=== PATIENT | female | born 1965 | race Caucasian/White ===

== ENCOUNTER 2019-07-08 12:12 | Emergency (ER) | payer SELFPAY ==
[2019-07-08 13:17] VITALS: BP 149/74; PULSE 129; RESP 25; TEMP 39.1; O2SAT 95; BMI 31.8
--- NOTE | 2019-07-08 16:16 | XR_ITS ---
WS: [id number] CHEST XRAY TECHNIQUE: Portable chest. CLINICAL INFORMATION: cough COMPARISON: FINDINGS: Heart: Normal cardiac silhouette. Lungs: Lungs are clear. No consolidation or pleural effusion. Bones: Normal visualized bony structures. XR/XR chest 1V portable [id number] IMPRESSION: Normal chest
--- NOTE | 2019-07-08 16:16 | ECG_ITS ---
Measurements Intervals [place] Rate: 120 P: 85 DC: 136 QRS: 62 QRSD: 91 T: 68 QT: 271 QTc: 384 SINUS TACHYCARDIA LEFT VENTRICULAR HYPERTROPHY AND ST-T CHANGE [VOLTAGE CRITERIA PLUS ST/T ABNORMALITY] No previous ECG available for comparison Electronically Signed On 07-08-2019 17:52:16 PLASTER TENDER by Ashley Robbins M.D. [email or web address]
[2019-07-08 16:18] VITALS: BP 145/84; PULSE 124; RESP 18; TEMP 39.6; O2SAT 98
--- NOTE | 2019-07-08 16:19 | ED_ITS ---
Entered by Janet Hernandez, acting as scribe for William Puga MD Jul 08, 2019 12:12 HPI - General Adult General: Chief complaint: General Medical Stated complaint: multiple complaints Time Seen by Provider: 07/08/19 16:18 Source: patient and RN notes reviewed Mode of arrival: ambulatory Limitations: no limitations History of Present Illness: HPI narrative: 54 yo female presents to ED with complaints of body aches, pains, fever, and bilateral flank pain. The patient states she has been in bed since Monday (4 days). She denies sick contact except for when she went to [employer] on Monday. She said she has worse pain in her back. She denies cough/congestion. complaint: fever, body aches, bilateral flank pain Onset (ago): day(s) (4) Location: back, left (flank) and right (flank) Radiation: non-radiation Severity: moderate Quality: aching Pain Consistency: constant Relieving factors: none Exacerbating factors: none Associated symptoms: Reports fevers/chills, malaise and weakness; Deny chest pain, dyspnea, headache(s), nausea, rash or vomiting Treatments prior to arrival: none Review of Systems Const: Reports: malaise Eyes: Denies: blurry vision or eye discomfort ENMT: Denies: throat pain or dental pain Card: Denies: chest pain Resp: Denies: shortness of breath GI: Denies: abdominal pain, nausea, vomiting or diarrhea Musc: Denies: neck pain Skin/Breast: Denies: rash Neuro: Denies: headache Psych: Denies: depression Michael/Lymph: Denies: easy bruising All/Imm: Denies: hives PFSH ED PFSH: Statuses (acute, chronic, etc) shown below reflect problem list status as previously entered and may not be historically accurate Social History Smoking and tobacco status: never smoked Physical Exam Const: COMMON NORMALS: no apparent distress, oriented x3 and healthy appearing HENMT: COMMON NORMALS: normocephalic and head/scalp atraumatic HEAD & SCALP: normocephalic and atraumatic Eye: COMMON NORMALS: PERRL and EOMs intact bilaterally PUPIL: Yes PERRL Neck/C-Spine: COMMON NORMALS: full ROM and supple Chest: COMMONS NORMALS: inspection of chest normal and palpation of chest normal Resp: COMMON NORMALS: normal respiratory effort, no retractions, no use of accessory muscles and clear to auscultation bilaterally AUSCULTATION: clear to auscultation bilaterally Cardio: COMMON NORMALS: regular rhythm and no murmurs RATE: tachycardic RHYTHM: regular rhythm GI: COMMON NORMALS: normal to inspection, nondistended, normoactive bowel sounds, soft to palpation, non-tender and no masses PALPATION: Yes soft Extremity: COMMON NORMALS: normal to inspection and full ROM Neuro: COMMON NORMALS: oriented x3, moves all extremities and no focal motor deficits Psych: COMMON NORMALS: mental status grossly normal, thought process normal and cooperative THOUGHT PROCESS: normal thought process Skin: COMMON NORMALS: no rashes or lesions noted and no wounds GENERAL SKIN EXAM: no rashes or lesions noted Course Vital Signs: Vital signs: Vital Signs Temperature 98.4 F 07/08/19 18:38 Pulse Rate 100 07/08/19 18:38 Respiratory Rate 16 07/08/19 18:38 Blood Pressure 118/74 07/08/19 18:38 Pulse Oximetry 94 07/08/19 18:38 MDM - General Adult MDM Narrative: Medical decision making narrative: Patient presents here with fever along with flank pain with likely pyelonephritis. Patient abdominal exam and repeat abdominal exam here are benign with no tenderness. Patient is well- appearing here and requesting discharge. We will place her on antibiotics and she is stable for discharge at this time. She has no signs of meningitis. She is to return to the ER if worsening. Lab Data: Labs: Lab Results 07/08/19 07/08/19 07/08/19 Range/Units 16:28 16:28 16:28 WBC 16.8 H (4.0-10.0) 10^3/ uL RBC 4.51 (4.1-5.3) 10^6/u L Hgb 13.6 (11.5-15.3) g/dL Hct 40.8 (37.0-47.0) % MCV 90.5 (81-99) fL MCH 30.2 (28.0-34.0) pg MCHC 33.3 (30.0-36.0) g/dL RDW 13.3 (12.1-15.1) % Plt Count 278 (130-400) 10^3/c mm MPV 12.3 H (7.4-10.4) fL Neut % (Auto) 81.7 % Lymph % (Auto) 8.0 % [place] % (Auto) 8.7 % Eos % (Auto) 0.0 % Baso % (Auto) 0.2 % Neut # (Auto) 13.7 H (1.8-7.7) 10^3/u L Lymph # (Auto) 1.3 (0.8-4.8) 10^3/u L [place] # (Auto) 1.5 H (0.2-0.9) 10^3/u L Eos # (Auto) 0.0 (0.0-0.8) 10^3/u L Baso # (Auto) 0.0 (0.0-0.1) 10^3/u L Nucleated RBC % (a uto) 0 % Nucleated RBCs # 0.0 /100WBC Sodium 126 L (136-145) mmol/L Potassium 4.0 (3.5-5.1) mmol/L Chloride 85 L (98-107) mmol/L Carbon Dioxide 28 (22-29) mmol/L Anion Gap 17.0 (5-19) BUN 31 H (6-20) mg/dL Creatinine 1.2 H (0.5-0.9) mg/dL GFR Calculation 46.8 L (90-130) mL/min Glucose 124 H (74-109) mg/dL Lactic Acid 1.4 (0.5-2.2) mmol/L Calcium 10.6 H (8.5-10.5) mg/dL Total Bilirubin 0.4 (0.15-1.2) mg/dL AST 31 (0-32) U/L ALT 20 (0-33) U/L Alkaline Phosphata se 121 H (35-105) IU/L Total Protein 8.2 (6.6-8.7) g/dL Albumin 3.2 L (3.5-5.2) g/dL Globulin 5.0 H (1.3-4.6) g/dL Urine Color (Yellow) Urine Appearance (CLEAR) Urine pH (5-7) Ur Specific Gravit y (1.005-1.030) Urine Protein (Negative) Urine Glucose (UA) (Normal) Urine Ketones (Negative) Urine Occult Blood (Negative) Urine Nitrate (Negative) Urine Bilirubin (NEGATIVE) Urine Urobilinogen (Negative) mg/dL Ur Leukocyte Umu ase (Negative) Urine RBC (0-2) /hpf Urine WBC (0-5) /hpf Ur Squamous Epith Cells (0-5) Urine Bacteria (NONE) Influenza Type A A g (Negative) POC Influenza B Ag (Negative) 07/08/19 07/08/19 Range/Units 16:57 16:57 WBC (4.0-10.0) 10^3/ uL RBC (4.1-5.3) 10^6/u L Hgb (11.5-15.3) g/dL Hct (37.0-47.0) % MCV (81-99) fL MCH (28.0-34.0) pg MCHC (30.0-36.0) g/dL RDW (12.1-15.1) % Plt Count (130-400) 10^3/c mm MPV (7.4-10.4) fL Neut % (Auto) % Lymph % (Auto) % [place] % (Auto) % Eos % (Auto) % Baso % (Auto) % Neut # (Auto) (1.8-7.7) 10^3/u L Lymph # (Auto) (0.8-4.8) 10^3/u L [place] # (Auto) (0.2-0.9) 10^3/u L Eos # (Auto) (0.0-0.8) 10^3/u L Baso # (Auto) (0.0-0.1) 10^3/u L Nucleated RBC % (a uto) % Nucleated RBCs # /100WBC Sodium (136-145) mmol/L Potassium (3.5-5.1) mmol/L Chloride (98-107) mmol/L Carbon Dioxide (22-29) mmol/L Anion Gap (5-19) BUN (6-20) mg/dL Creatinine (0.5-0.9) mg/dL GFR Calculation (90-130) mL/min Glucose (74-109) mg/dL Lactic Acid (0.5-2.2) mmol/L Calcium (8.5-10.5) mg/dL Total Bilirubin (0.15-1.2) mg/dL AST (0-32) U/L ALT (0-33) U/L Alkaline Phosphata se (35-105) IU/L Total Protein (6.6-8.7) g/dL Albumin (3.5-5.2) g/dL Globulin (1.3-4.6) g/dL Urine Color Yellow (Yellow) Urine Appearance Cloudy (CLEAR) Urine pH 5 (5-7) Ur Specific Gravit y 1.015 (1.005-1.030) Urine Protein 2+ H (Negative) Urine Glucose (UA) Norm (Normal) Urine Ketones Negative (Negative) Urine Occult Blood 3+ H (Negative) Urine Nitrate Negative (Negative) Urine Bilirubin Neg (NEGATIVE) Urine Urobilinogen Norm (Negative) mg/dL Ur Leukocyte Umu ase 2+ H (Negative) Urine RBC 5-10 H (0-2) /hpf Urine WBC 15-25 H (0-5) /hpf Ur Squamous Epith Cells 10-15 H (0-5) Urine Bacteria 2+ H (NONE) Influenza Type A A g Negative (Negative) POC Influenza B Ag Negative (Negative) Imaging Data^: CXR: My impression: no acute abnormality Discharge Plan Discharge Patient Disposition: Home, Self-Care Clinical Impression: Pyelonephritis Condition: Stable Prescriptions: New Zofran 4 mg tablet 4 mg PO QID PRN (Reason: nausea and vomiting) Qty: 14 RF: 0 Keflex 500 mg capsule 500 mg PO Q6H 7 Days Qty: 28 RF: 0 EC-Naprosyn 500 mg tablet,delayed release (DR/EC) 500 mg PO BID PRN (Reason: pain) Qty: 20 RF: 0 Discharge Orders: Discharge Order (Routine); Ordered 07/08/19 Ordered By: William Puga Referrals: Barry London MD [Primary Care Provider] - 1-3 days Discharge Diet: Advance as tolerated Discharge Activity: Resume usual activity Patient Instructions: Acute Pyelonephritis (ED) Discharge Date/Time: 07/08/19 18:47 Coding Level of Care Code ED Shift Lab Technician for g Fwd The documentation recorded by the David richter Valerie R, accurately refl ectmacy the service I personally performed and the decisions made by Edd molina Korby, MD Jul 08, 2019 12:12
--- NOTE | 2019-07-08 16:19 | PC.NURSE ---
Patient reports that she has been in bed sick since Monday. Patient states she had a fever, cold sweats, and body aches. Patient reports the cold sweats have went away but she has had some dark urine. Patient states that at this time she is having a headache, back pain, neck pain, dizziness, and fever.
[2019-07-08 16:42] LABS: Basophils % 0.2 %; Hematocrit 40.8 % (37.0-47.0); Hemoglobin 13.6 g/dL (11.5-15.3); Lymphocytes # 1.3 10^3/uL (0.8-4.8); Mean Corpuscular HGB Conc 33.3 g/dL (30.0-36.0); Mean Corpuscular Hemoglobin 30.2 pg (28.0-34.0); Mean Corpuscular Volume 90.5 fL (81-99); Mean Platelet Volume 12.3 fL (7.4-10.4); Monocytes # 1.5 10^3/uL (0.2-0.9); Monocytes % 8.7 %; Neutrophils # 13.7 10^3/uL (1.8-7.7); Neutrophils % 81.7 %; Nucleated Red Blood Cells % 0 %; Platelet Count 278 10^3/cmm (130-400); Red Blood Count 4.51 10^6/uL (4.1-5.3); Red Cell Distribution Width 13.3 % (12.1-15.1); White Blood Count 16.8 10^3/uL (4.0-10.0)
[2019-07-08] MEDS: sodium chloride 0.9% 2,449.41 ML 2449.4 ML IV (16:46)
[2019-07-08 16:59] LABS: Lactic Sepsis W/Reflex 1.4 mmol/L (0.5-2.2)
[2019-07-08 17:00] LABS: Alanine Aminotransferase 20 U/L (0-33); Albumin Level 3.2 g/dL (3.5-5.2); Alkaline Phosphatase 121 IU/L (35-105); Aspartate Amino Transferase 31 U/L (0-32); Blood Urea Nitrogen 31 mg/dL (6-20); Calcium 10.6 mg/dL (8.5-10.5); Carbon Dioxide 28 mmol/L (22-29); Chloride 85 mmol/L (98-107); Glomerular Filtration Rate 46.8 mL/min (90-130); Glucose 124 mg/dL (74-109); Sodium 126 mmol/L (136-145); Total Bilirubin 0.4 mg/dL (0.15-1.2); Total Protein 8.2 g/dL (6.6-8.7)
[2019-07-08] MEDS: acetaminophen 500 mg Tablet 1000 MG PO (17:22)
[2019-07-08 17:41] LABS: Influenza A by IFA Negative (Negative); Influenza B by IFA Negative (Negative)
[2019-07-08 17:47] LABS: Add Urine Microscopic? YES; Bilirubin Urine Neg (NEGATIVE); Blood Urine 3+ (Negative); Glucose Urine UA Norm (Normal); Ketones Urine Negative (Negative); Leukocyte Esterase Urine 2+ (Negative); Nitrate Urine Negative (Negative); Protein Urine 2+ (Negative); Specific Gravity, Urine 1.015 (1.005-1.030); Urine Appearance Cloudy (CLEAR); Urine Color Yellow (Yellow); Urobilinogen Urine Norm (Negative); pH Urine 5 (5-7)
[2019-07-08 17:48] LABS: WBC Urine 15-25 /hpf (0-5)
[2019-07-08 17:49] LABS: Add Urine Culture? No; Bacteria Urine 2+
[2019-07-08 17:55] VITALS: BP 105/75; PULSE 10; RESP 16; TEMP 37.9; O2SAT 95
[2019-07-08] MEDS: cefTRIAXone 1,000 MG in sodium chloride 0.9% (plus) 50 ML 100 MG IV (18:02)
[2019-07-08 18:38] VITALS: BP 118/74; PULSE 100; RESP 16; TEMP 36.9; O2SAT 94
== END 2019-07-08 18:47 | disposition home or self-care (01) ==
PROVIDERS: Physician Assistant; Emergency Provider Emergency Medicine; Family Provider Family Medicine; PCP Family Medicine
DX: N12 Tubulo-interstitial nephritis, not specified as acute or chronic (principal)
CPT/HCPCS: 36415; 71045; 80053; 81001; 83605; 85025; 87040; 87077; 87086; 87186; 87804; 93005; 99283; J0696; J7030

== ENCOUNTER 2019-11-05 14:39 | Emergency (ER) | payer SELFPAY ==
[2019-11-05 15:29] VITALS: BP 170/75; PULSE 81; RESP 18; TEMP 36.7; O2SAT 97; BMI 32.8
--- NOTE | 2019-11-05 15:35 | W.ED.ABDPA2 ---
HPI - Abdominal Pain General: Chief Complaint: Abdominal Pain Stated Complaint: rib/back pain Time Seen by Provider: 11/05/19 15:35 History of Present Illness: HPI narrative: Patient is a 54-year-old female comes to the ED with abdominal pain. Patient says it started about 2 weeks ago. The pain is located in the epigastric region and in the right upper quadrant of the abdomen. She also complains of having some mid back pain as well. She noticed today that eating seemed to worsen some of her symptoms. She also complains of recently having some indigestion and acid reflux. Denies any fever, chills, nausea/vomiting, bladder or bowel symptoms. Associated Symptoms: Denies chills, constipation, diarrhea, dysuria, fever(s), hematochezia, hematuria, nausea and vomiting Review of Systems Const: Denies: fever(s), chills or fatigue Eyes: Denies: change in vision or eye discomfort ENMT: Denies: throat pain, odynophagia, nasal discharge or nasal congestion Card: Denies: chest pain, palpitations, edema, swelling of feet/ankles, dyspnea on exertion or orthopnea Resp: Denies: dyspnea, productive cough or non-productive cough GI: Reports: abdominal pain; Denies: nausea, vomiting, diarrhea, constipation or hematochezia : Denies: flank pain, dysuria or hematuria Musc: Reports: back pain; Denies: neck pain or extremity swelling Skin/Breast: Denies: rash or new lesions Neuro: Denies: headache(s), numbness in extremities or weakness in extremities PFS ED PFSH: Social History Smoking and tobacco status: never smoked Physical Exam Narrative: EXAM NARRATIVE: Patient is a 54-year-old female that is pleasant and laughing/making jokes during history and physical exam. She does appear to have some abdominal pain upon palpation especially in the right upper quadrant. Const: COMMON NORMALS: no acute distress, patient oriented x3 and alert GENERAL APPEARANCE: cooperative HENMT: COMMON NORMALS: normocephalic HEAD & SCALP: normocephalic MOUTH: Normal oral and palatal mucosa present THROAT: posterior oropharynx normal and uvula midline Neck/C-Spine: COMMON NORMALS: supple GENERAL: Yes normal visual inspection Resp: COMMON NORMALS: normal respiratory effort, No retractions, No use of accessory muscles and clear to auscultation bilaterally AUSCULTATION: clear to auscultation bilaterally Cardio: COMMON NORMALS: regular rate, regular rhythm, S1 normal heart sound present, S2 normal heart sound present, No gallops present (Cardio), No clicks present (Cardio), No murmurs present (Cardio) and Peripheral pulses 2+ throughout RATE: regular rate RHYTHM: regular rhythm HEART SOUNDS: S1 normal heart sound present and S2 normal heart sound present PERIPHERAL PULSES: Peripheral pulses 2+ throughout GI: COMMON NORMALS: Normal to inspection, nondistended, normoactive bowel sounds present, Soft to palpation and no masses PALPATION: Yes Soft to palpation and Yes Tenderness to palpation present (GI) Details: RUQ (Moderate tenderness?positive Camacho sign) : COMMON NORMALS: Yes no CVA tenderness BLADDER/KIDNEY EXAM: Yes no CVA tenderness Back/Pelvis: COMMON NORMALS: no CVA tenderness Extremity: COMMON NORMALS: normal to inspection and no pedal edema Neuro: COMMON NORMALS: patient oriented x3 SENSORIUM/ORIENTATION: Yes alert GAIT: Yes Normal gait present Skin: COMMON NORMALS: no rashes or lesions noted GENERAL SKIN EXAM: no rashes or lesions noted and dry skin Course Vital Signs: Vital signs: Vital Signs Temperature 98.0 F 11/05/19 15:29 Pulse Rate 81 11/05/19 18:17 Respiratory Rate 14 11/05/19 18:17 Blood Pressure 165/88 11/05/19 18:17 Pulse Oximetry 97 11/05/19 18:17 MDM - Abdominal Pain MDM Narrative: Medical decision making narrative: Patient is a 54-year-old female comes to the ED with right upper quadrant abdominal pain. Ultrasound of the gallbladder showed hepatomegaly and gallstone. Patient was then discharged with a prescription for tramadol to help with pain. She was told to follow-up with her PCP within the next week to recheck labs and reevaluate. Patient understood and agreed with plan. Lab Data: Attestation: I reviewed the patient's lab results. Labs: Lab Results 11/05/19 11/05/19 Range/Units 15:53 15:53 WBC 8.0 (4.0-10.0) 10^3/ uL RBC 4.42 (4.1-5.3) 10^6/u L Hgb 13.5 (11.5-15.3) g/dL Hct 40.9 (37.0-47.0) % MCV 92.5 (81-99) fL MCH 30.5 (28.0-34.0) pg MCHC 33.0 (30.0-36.0) g/dL RDW 13.7 (12.1-15.1) % Plt Count 355 (130-400) 10^3/c mm MPV 11.5 H (7.4-10.4) fL Neut % (Auto) 58.9 % Lymph % (Auto) 33.1 % [place] % (Auto) 5.1 % Eos % (Auto) 2.1 % Baso % (Auto) 0.5 % Neut # (Auto) 4.7 (1.8-7.7) 10^3/u L Lymph # (Auto) 2.7 (0.8-4.8) 10^3/u L [place] # (Auto) 0.4 (0.2-0.9) 10^3/u L Eos # (Auto) 0.2 (0.0-0.8) 10^3/u L Baso # (Auto) 0.0 (0.0-0.1) 10^3/u L Nucleated RBC % (a uto) 0 % Nucleated RBCs # 0.0 /100WBC Sodium 138 (136-145) mmol/L Potassium 3.8 (3.5-5.1) mmol/L Chloride 100 (98-107) mmol/L Carbon Dioxide 27 (22-29) mmol/L Anion Gap 14.8 (5-19) BUN 12 (6-20) mg/dL Creatinine 0.7 (0.5-0.9) mg/dL GFR Calculation 87.2 L (90-130) mL/min Glucose 89 (65-115) mg/dL Calculated Osmolal ity 282 L (285-295) mOsm/k g Calcium 9.1 (8.5-10.5) mg/dL Total Bilirubin 0.2 (0.15-1.2) mg/dL AST 18 (0-32) U/L ALT 20 (0-33) U/L Alkaline Phosphata se 90 (35-105) IU/L Total Protein 7.3 (6.6-8.7) g/dL Albumin 3.9 (3.5-5.2) g/dL Globulin 3.4 (1.3-4.6) g/dL Lipase 26 (13-60) U/L Discharge Plan Discharge Patient Disposition: Home, Self-Care Clinical Impression: Hepatomegaly Gallstone Qualifiers: Cholecystitis presence: without cholecystitis Biliary obstruction: without biliary obstruction Qualified Code(s): K80.20 - Calculus of gallbladder without cholecystitis without obstruction Condition: Stable Prescriptions: New tramadol 50 mg tablet 50 mg PO Q6H PRN (Reason: pain) Qty: 14 RF: 0 No Action Tylenol 325 mg Tablet 325 mg PO QID PRN (Reason: Pain) RF: 0 ibuprofen 200 mg Tablet 200 mg PO Q6H PRN (Reason: Pain) RF: 0 Claritin 10 mg Tablet 10 mg PO DAILY RF: 0 Discharge Orders: Discharge Order (Routine); Ordered 11/05/19 Ordered By: Sandro Feliz Referrals: Barry London MD [Primary Care Provider] - Discharge Diet: Advance as tolerated Discharge Activity: Increase activity as tolerated Patient Instructions: Abdominal Pain (ED) Activity Restrictions/Additional Instructions: Follow-up with medical provider as directed. Take medications as prescribed. Return to the ER or your medical provider if condition worsens. Please read and understand discharge instructions. If any questions ask please. Establish with primary and had a follow-up concerning your large liver and your gallstone recheck cholesterol triglycerides Discharge Date/Time: 11/05/19 18:17 Coding Level of Care Code ED Well Logging Captain for Chg Fwd Exam Comprehensive
[2019-11-05 15:56] VITALS: BP 161/89; PULSE 75; RESP 14; O2SAT 95
[2019-11-05 15:58] LABS: Basophils % 0.5 %; Eosinophils # 0.2 10^3/uL (0.0-0.8); Eosinophils % 2.1 %; Hematocrit 40.9 % (37.0-47.0); Hemoglobin 13.5 g/dL (11.5-15.3); Lymphocytes # 2.7 10^3/uL (0.8-4.8); Lymphocytes % 33.1 %; Mean Corpuscular Hemoglobin 30.5 pg (28.0-34.0); Mean Corpuscular Volume 92.5 fL (81-99); Mean Platelet Volume 11.5 fL (7.4-10.4); Monocytes # 0.4 10^3/uL (0.2-0.9); Monocytes % 5.1 %; Neutrophils # 4.7 10^3/uL (1.8-7.7); Neutrophils % 58.9 %; Nucleated Red Blood Cells % 0 %; Platelet Count 355 10^3/cmm (130-400); Red Blood Count 4.42 10^6/uL (4.1-5.3); Red Cell Distribution Width 13.7 % (12.1-15.1)
--- NOTE | 2019-11-05 16:07 | USR_ITS ---
PROCEDURE INFORMATION: Exam: US Abdomen Limited, Right Upper Quadrant Exam date and time: 11/05/2019 4:27 PM Age: 54 years old Clinical indication: Abdominal pain; Localized; Right upper quadrant (ruq); Additional info: Abdominal pain in ruq TECHNIQUE: Imaging protocol: Real-time ultrasound of the abdomen with image documentation. Examination was focused on the right upper quadrant. COMPARISON: No relevant prior studies available. FINDINGS: Liver: Normal. No masses. Mild hepatomegaly the liver span is 17.6 cm Gallbladder: Large solitary gallstones. Stone measures 1.9 cm x 1.5 cm There is no gallbladder wall thickening. Common bile duct: Normal. No stones. No dilation. 2.2 mm Pancreas: Visualized pancreas is unremarkable. Right kidney: Normal. No mass. No hydronephrosis. 11.7 cm x 4.3 cm x 5.5 cm US/US gall bladder [id number] IMPRESSION: Hepatomegaly Solitary gallstone Otherwise negative examination
[2019-11-05 16:13] LABS: Alanine Aminotransferase 20 U/L (0-33); Albumin Level 3.9 g/dL (3.5-5.2); Alkaline Phosphatase 90 IU/L (35-105); Anion Gap 14.8 (5-19); Aspartate Amino Transferase 18 U/L (0-32); Blood Urea Nitrogen 12 mg/dL (6-20); Calcium 9.1 mg/dL (8.5-10.5); Carbon Dioxide 27 mmol/L (22-29); Chloride 100 mmol/L (98-107); Globulin 3.4 g/dL (1.3-4.6); Glomerular Filtration Rate 87.2 mL/min (90-130); Glucose 89 mg/dL (65-115); Lipase 26 U/L (13-60); Osmolality Calculated 282 mOsm/kg (285-295); Potassium 3.8 mmol/L (3.5-5.1); Sodium 138 mmol/L (136-145); Total Bilirubin 0.2 mg/dL (0.15-1.2); Total Protein 7.3 g/dL (6.6-8.7)
[2019-11-05] MEDS: morphine 4 mg/mL SDV 1 mL IVP (16:26)
[2019-11-05] MEDS: lidocaine 2% viscous 15 ML, aluminum-mag hydrox-simethicon 30 ML, sucralfate oral liq 1 GM PO (16:26)
[2019-11-05] MEDS: ondansetron 2 mg/ML SDV 2 mL 4 MG IVP (16:26)
[2019-11-05] MEDS: sodium chloride 0.9% 1,000 ML 999 ML IV (16:26)
[2019-11-05 17:18] VITALS: BP 161/89; PULSE 71; RESP 18; O2SAT 98
[2019-11-05 18:17] VITALS: BP 165/88; PULSE 81; RESP 14; O2SAT 97
== END 2019-11-05 18:17 | disposition home or self-care (01) ==
PROVIDERS: Emergency Medicine; Emergency Provider Nurse Practitioner Family; PCP Family Medicine
DX: K80.20 Calculus of gallbladder without cholecystitis without obstruction (principal); R16.0 Hepatomegaly, not elsewhere classified
CPT/HCPCS: 12345; 36415; 76705; 80053; 83690; 85025; 96360; 96361; 96374; 96375; 99282; 99283; J2270; J2405; J7030

== ENCOUNTER 2022-03-03 15:10 | Emergency (ER) | payer MEDICAID, SELFPAY ==
[2022-03-03 15:11] VITALS: BP 135/84; PULSE 104; RESP 16; TEMP 37.1; BMI 29.7
--- NOTE | 2022-03-03 15:41 | W.ED.ABDPA2 ---
HPI - Abdominal Pain General: Chief Complaint: Abdominal Pain Stated Complaint: abnormal labs Time Seen by Provider: 03/03/22 15:22 Source: patient Mode of arrival: ambulatory History of Present Illness: 56-year-old female presents emergency room complaining of abdominal discomfort. Seen 2 days ago in her primary care clinic had abdominal pain diarrhea had laboratory work done. Received a call from clinic today was advised to go to nearest emergency room because of abnormal labs. She is not sure what the labs were. She denies any chest pain she has some vague abdominal discomfort and some loose stools. Denies hematochezia melena hematemesis coffee-ground emesis. She states she thought she needed to have her gallbladder evaluated. MD elicited complaint: abdominal pain Onset (ago): day(s) (3-4) Pain Consistency: intermittent Location: Diffuse Severity: mild Quality: cramping Migration to: no migration Exacerbating factors: nothing Relieving factors: nothing Associated Symptoms: Reports GI cramping; Denies bloating, chills, coffee ground emesis, constipation, diarrhea, dyspepsia, dysuria, excessive flatus, fever(s), heartburn, hematochezia, hematuria, hematemesis, fecal incontinence, loose stools, melena, nausea, poor appetite, syncope and vomiting Review of Systems Const: Denies: fever(s), chills, body aches, change in appetite, fatigue or malaise ENMT: Denies: throat pain, ear or mastoid pain, nasal discharge or nasal congestion Card: Denies: chest pain, edema, syncope, dyspnea on exertion or orthopnea Resp: Denies: dyspnea, productive cough or non-productive cough GI: Reports: GI cramping; Denies: abdominal pain, nausea, vomiting, hematemesis, coffee ground emesis, heartburn, diarrhea, constipation, bloating, excessive flatus, fecal incontinence, hematochezia or melena : Denies: flank pain, difficulty voiding, dysuria, urinary frequency, urinary urgency or hematuria Skin/Breast: Denies: rash or pruritus PFSH ED PFSH: Medical History Anxiety Chronic cholecystitis Lumbar disc disease with radiculopathy Psychiatric care Social History Smoking and tobacco status: never smoked Second hand smoke exposure: Yes Alcohol intake: never Physical Exam Const: COMMON NORMALS: no acute distress GENERAL APPEARANCE: cooperative and comfortable ORIENTATION/CONSCIOUSNESS: Yes awake, Yes oriented to person, Yes oriented to place and Yes oriented to time HENMT: COMMON NORMALS: normocephalic, atraumatic, hearing grossly normal bilaterally, external ears normal, EAC's normal, TM's normal bilaterally, Normal nasal mucous membranes and turbinates present, moist oral mucous membranes and oropharynx normal HEAD & SCALP: normocephalic and atraumatic NOSE: Normal nasal mucous membranes and turbinates present EXTERNAL EAR: Yes external ears normal EXTERNAL AUDITORY CANAL: EAC's normal TYMPANIC MEMBRANE: TM's normal bilaterally Eye: COMMON NORMALS: Equal, round and reactive pupils present, EOMs intact bilaterally, conjunctivae normal and no scleral icterus CONJUNCTIVA: Yes conjunctivae normal PUPIL: Yes Equal, round and reactive pupils present Neck/C-Spine: COMMON NORMALS: full ROM, no lymphadenopathy, supple and no JVD Lymph: LYMPHATIC: no lymphadenopathy noted and no lymphedema noted Resp: COMMON NORMALS: normal respiratory effort, No retractions, No use of accessory muscles and clear to auscultation bilaterally AUSCULTATION: clear to auscultation bilaterally Cardio: COMMON NORMALS: no JVD, regular rate, regular rhythm and No murmurs present (Cardio) RATE: regular rate RHYTHM: regular rhythm GI: COMMON NORMALS: Soft to palpation and No hepatosplenomegaly present AUSCULTATION: Yes normoactive bowel sounds PALPATION: Yes Soft to palpation, No Tenderness to palpation present (GI), No Guarding due to palpation present (GI) and Yes No hepatosplenomegaly present Extremity: COMMON NORMALS: normal to inspection, capillary refill normal, no clubbing, cyanosis or edema, no calf tenderness and no pedal edema Neuro: SENSORIUM/ORIENTATION: Yes oriented to person, Yes oriented to place and Yes oriented to time Skin: COMMON NORMALS: no rashes or lesions noted GENERAL SKIN EXAM: no rashes or lesions noted Course Vital Signs: Vital signs: Vital Signs Temperature 98.7 F 03/03/22 15:11 Pulse Rate 92 03/03/22 16:25 Respiratory Rate 18 03/03/22 16:25 Blood Pressure 140/102 03/03/22 16:25 Pulse Oximetry 100 09/22/22 16:25 Oxygen Delivery Me thod 03/03/22 15:11 MDM - Abdominal Pain Medical Decision Making Creatinine is mildly elevated BUN was elevated [facility] as well similar findings today. Certainly not emergent at this point. Recommend she avoid any NSAIDs increase fluid intake and follow-up with her primary care doctor within the next week to recheck kidney function. Medical Records I reviewed the patient's medical records. Lab Data I reviewed the patient's lab results. : 03/03/22 15:38 03/03/22 15:38 Labs/Radiology: Laboratory Results WBC 12.0 10^3/uL (4.0-10.0) H 03/03/22 15:38 RBC 4.51 10^6/uL (4.1-5.3) 03/03/22 15:38 Hgb 13.7 g/dL (11.5-15.3) 03/03/22 15:38 Hct 42.2 % (37.0-47.0) 03/03/22 15:38 MCV 93.6 fl (81-99) 03/03/22 15:38 MCH 30.4 pg (28.0-34.0) 03/03/22 15:38 MCHC 32.5 g/dL (30.0-36.0) 03/03/22 15:38 RDW 13.7 % (12.1-15.1) 03/03/22 15:38 Plt Count 345 10^3/cmm (130-400) 03/03/22 15:38 MPV 11.7 fL (7.4-10.4) H 03/03/22 15:38 Neut % (Auto) 71.0 % 03/03/22 15:38 Lymph % (Auto) 22.6 % 03/03/22 15:38 [place] % (Auto) 4.6 % 03/03/22 15:38 Eos % (Auto) 1.3 % 03/03/22 15:38 Baso % (Auto) 0.3 % 03/03/22 15:38 Neut # (Auto) 8.53 10^3/uL (1.8-7.7) H 03/03/22 15:38 Lymph # (Auto) 2.7 10^3/uL (0.8-4.8) 03/03/22 15:38 [place]e # (Auto) 0.6 10^3/uL (0.2-0.9) 03/03/22 15:38 Eos # (Auto) 0.2 10^3/uL (0.0-0.8) 03/03/22 15:38 Baso # (Auto) 0.0 10^3/uL (0.0-0.1) 03/03/22 15:38 Nucleated RBC % (auto) 0 % 03/03/22 15:38 Nucleated RBCs # 0.0 /100WBC 03/03/22 15:38 Sodium 134 mmol/L (136-145) L 03/03/22 15:38 Potassium 3.8 mmol/L (3.5-5.1) 03/03/22 15:38 Chloride 94 mmol/L (98-107) L 03/03/22 15:38 Carbon Dioxide 31 mmol/L (22-29) H 03/03/22 15:38 Anion Gap 12.8 (5-19) 03/03/22 15:38 BUN 29 mg/dL (6-20) H 03/03/22 15:38 Creatinine 1.1 mg/dL (0.5-0.9) H 03/03/22 15:38 GFR Calculation 51.4 mL/min (90-130) L 03/03/22 15:38 Glucose 94 mg/dL (65-115) 03/03/22 15:38 Calculated Osmolality 284 mOsm/kg (285-295) L 03/03/22 15:38 Calcium 10.1 mg/dL (8.5-10.5) 03/03/22 15:38 Total Bilirubin 0.3 mg/dL (0.15-1.2) 03/03/22 15:38 AST 20 U/L (0-32) 03/03/22 15:38 ALT 17 U/L (0-33) 03/03/22 15:38 Alkaline Phosphatase 90 U/L (35-105) 03/03/22 15:38 Total Protein 7.9 g/dL (6.6-8.7) 03/03/22 15:38 Albumin 3.6 g/dL (3.5-5.2) 03/03/22 15:38 Globulin 4.3 g/dL (1.3-4.6) 03/03/22 15:38 Lipase 26 U/L (13-60) 03/03/22 15:38 Urine Color Yellow (Yellow) 03/03/22 15:40 Urine Appearance Clear (CLEAR) 03/03/22 15:40 Urine pH 5 (5-7) 03/03/22 15:40 Ur Specific Wellman 1.025 (1.005-1.030) 03/03/22 15:40 Urine Protein Trace (Negative) 03/03/22 15:40 Urine Glucose (UA) Norm (Normal) 03/03/22 15:40 Urine Ketones Negative (Negative) 03/03/22 15:40 Urine Blood 2+ (Negative) H 03/03/22 15:40 Urine Nitrate Negative (Negative) 03/03/22 15:40 Urine Bilirubin Neg (Negative) 03/03/22 15:40 Urine Urobilinogen Norm mg/dL (Negative) 03/03/22 15:40 Ur Leukocyte Esterase 1+ (Negative) H 03/03/22 15:40 Urine RBC 5-10 /hpf (0-2) H 03/03/22 15:40 Urine WBC 0-4 /hpf (0-5) H 03/03/22 15:40 Ur Squamous Epith Cells 0-4 /hpf (0-5) H 03/03/22 15:40 Amorphous Sediment Not Reportable 03/03/22 15:40 Urine Bacteria 2+ /hpf (NONE) H 03/03/22 15:40 Discharge Plan Discharge Patient Disposition: Home Clinical Impression: Creatinine elevation Condition: Stable Prescriptions: Discontinued ibuprofen 200 mg Tablet 200 mg PO Q6H PRN (Reason: Pain) Rx Instructions: PT STATES THAT SHE TOOK 2 OF HER HUSBANDS FLEXERIL THIS MORNING. No Action Tylenol 325 mg Tablet 325 mg PO QID PRN (Reason: Pain) Rx Instructions: PT STATES THAT SHE TOOK 2 OF HER HUSBANDS FLEXERIL THIS MORNING. Claritin 10 mg Tablet 10 mg PO DAILY Rx Instructions: PT STATES THAT SHE TOOK 2 OF HER HUSBANDS FLEXERIL THIS MORNING. Discharge Orders: Discharge ED (Routine); Ordered 03/03/22 Ordered By: Herman Malcolm Referrals: Park Frances, [facility] [Primary Care Provider] - Patient Instructions: Opioid Safety, Pain Management Activity Restrictions/Additional Instructions: Avoid use of NSAIDs such as Motrin Aleve ibuprofen. Avoid using the meloxicam you stated you were recently prescribed and follow-up with your primary care doctor within the next week to recheck your kidney function. Coding Level of Care Code ED Customs Manager for [facility]atha Fwd Exam Comprehensive
[2022-03-03] MEDS: sodium chloride 0.9% 1,000 ML 999 ML IV (15:46)
[2022-03-03 15:49] LABS: Basophils % 0.3 %; Eosinophils # 0.2 10^3/uL (0.0-0.8); Eosinophils % 1.3 %; Hematocrit 42.2 % (37.0-47.0); Hemoglobin 13.7 g/dL (11.5-15.3); Lymphocytes # 2.7 10^3/uL (0.8-4.8); Lymphocytes % 22.6 %; Mean Corpuscular HGB Conc 32.5 g/dL (30.0-36.0); Mean Corpuscular Hemoglobin 30.4 pg (28.0-34.0); Mean Corpuscular Volume 93.6 fl (81-99); Mean Platelet Volume 11.7 fL (7.4-10.4); Monocytes # 0.6 10^3/uL (0.2-0.9); Monocytes % 4.6 %; Neutrophils # 8.53 10^3/uL (1.8-7.7); Nucleated Red Blood Cells % 0 %; Platelet Count 345 10^3/cmm (130-400); Red Blood Count 4.51 10^6/uL (4.1-5.3); Red Cell Distribution Width 13.7 % (12.1-15.1)
[2022-03-03 16:05] LABS: Alanine Aminotransferase 17 U/L (0-33); Albumin Level 3.6 g/dL (3.5-5.2); Alkaline Phosphatase 90 U/L (35-105); Anion Gap 12.8 (5-19); Aspartate Amino Transferase 20 U/L (0-32); Blood Urea Nitrogen 29 mg/dL (6-20); Calcium 10.1 mg/dL (8.5-10.5); Carbon Dioxide 31 mmol/L (22-29); Chloride 94 mmol/L (98-107); Globulin 4.3 g/dL (1.3-4.6); Glomerular Filtration Rate 51.4 mL/min (90-130); Glucose 94 mg/dL (65-115); Lipase 26 U/L (13-60); Osmolality Calculated 284 mOsm/kg (285-295); Potassium 3.8 mmol/L (3.5-5.1); Sodium 134 mmol/L (136-145); Total Bilirubin 0.3 mg/dL (0.15-1.2); Total Protein 7.9 g/dL (6.6-8.7)
[2022-03-03 16:15] LABS: Specific Gravity, Urine 1.025 (1.005-1.030); Urine Appearance Clear (CLEAR); Urine Color Yellow (Yellow); pH Urine 5 (5-7)
[2022-03-03 16:16] LABS: Add Urine Culture? Yes; Add Urine Microscopic? YES; Bacteria Urine 2+ /hpf; Bilirubin Urine Neg (Negative); Blood Urine 2+ (Negative); Glucose Urine UA Norm (Normal); Ketones Urine Negative (Negative); Leukocyte Esterase Urine 1+ (Negative); Nitrate Urine Negative (Negative); Protein Urine Trace (Negative); Squamous Epithelial Cell Urine 0-4 /hpf (0-5); Urobilinogen Urine Norm (Negative); WBC Urine 0-4 /hpf (0-5)
[2022-03-03 16:25] VITALS: BP 140/102; PULSE 92; RESP 18; O2SAT 100
--- NOTE | 2022-03-03 16:49 | PC.NURSE ---
ATTEMPTED TO CALL PT WITH UA RESULTS AND TO CHECK PHARMACY PREFERENCE FOR SCRIPT. NO ANSWER.
== END 2022-03-03 16:26 | disposition home or self-care (01) ==
PROVIDERS: Emergency Provider Family Medicine; PCP Nurse Practitioner Family
DX: R79.82 Elevated C-reactive protein (CRP) (principal); Z77.22 Contact with and (suspected) exposure to environmental tobacco smoke (acute) (chronic)
CPT/HCPCS: 36415; 80053; 81001; 83690; 85025; 87077; 87086; 87186; 99283; J7030

== ENCOUNTER 2022-04-14 10:24 | Outpatient (CLI) | payer MEDICAID, SELFPAY ==
--- NOTE | 2022-04-14 10:35 | MM_ITS ---
WS: [id number] BILATERAL SCREENING DIGITAL TOMOSYNTHESIS MAMMOGRAM WITH CAD HISTORY: SCREENING COMPARISON: None available. Bilateral CC and MLO views with tomosynthesis and synthetic mammography submitted. Computer aided det ection analyzed. Breast composition: There are scattered areas of fibroglandular density. No suspicious masses, microc alcifications or architectural distortion. MM/[place] [id number] IMPRESSION: BI-RADS: 1-Negative FOLLOW UP: 1 Year Follow-up
== END 2022-04-14 10:25 | disposition home or self-care (01) ==
LOC: RAD 10:25
PROVIDERS: PCP Nurse Practitioner Family; Visit Provider Nurse Practitioner Family
DX: Z12.31 Encounter for screening mammogram for malignant neoplasm of breast (principal)
CPT/HCPCS: 77063; 77067

== ENCOUNTER 2022-09-10 12:24 | Inpatient (IN) | payer MEDICAID, SELFPAY ==
[2022-09-10] VITALS (8 sets, daily range): BP systolic 122–172; BP diastolic 83–106; PULSE 89–112; RESP 14–28; TEMP 36.6–36.8; O2SAT 90–97; BMI 20.9; BMI 35.0
--- NOTE | 2022-09-10 12:39 | CTR_ITS ---
PROCEDURE INFORMATION: Exam: CT Abdomen And Pelvis With Contrast Exam date and time: 09/10/2022 12:50 PM Age: 57 years old Clinical indication: Abdominal pain; Localized; Lower; Patient HX: Tubal; Additional info: L abdominal pain, n/v TECHNIQUE: Imaging protocol: Computed tomography of the abdomen and pelvis with contrast. Radiation optimization: All CT scans at this facility use at least one of these dose optimization techniques: automated exposure control; mA and/or kV adjustment per patient size (includes targeted exams where dose is matched to clinical indication); or iterative reconstruction. Contrast material: OMNI 350; Contrast volume: 100 ml; Contrast route: INTRAVENOUS (IV); REPORTING DATA: Count of CT and Cardiac NM exams in prior 12 months: This patient has received 0 known CTs and 0 known cardiac nuclear medicine studies in the 12 months prior to the current study. COMPARISON: US gall bladder [id number] 04/04/2022 10:24 AM RADIATION DOSE METRICS: Total DLP (mGy-cm): 882.32 FINDINGS: Liver: Hepatomegaly. Gallbladder and bile ducts: Normal. No calcified stones. No ductal dilation. Pancreas: Normal. No ductal dilation. Spleen: Normal. No splenomegaly. Adrenal glands: Normal. No mass. Kidneys and ureters: There are multiple cysts in the bilateral kidneys with benign features the larger of which measures 2.1 cm in the right kidney. Follow-up is not necessary for these lesions. Stomach and bowel: There is fluid in the distal esophagus consistent with reflux. Appendix: No evidence of appendicitis. Intraperitoneal space: Unremarkable. No free air. No significant fluid collection. Vasculature: Unremarkable. No abdominal aortic aneurysm. Lymph nodes: Unremarkable. No enlarged lymph nodes. Urinary bladder: Unremarkable as visualized. Reproductive: There is an intermediate density lesion in the fundus of the uterus measuring 4.3 cm in the transverse dimension. Bones/joints: There is a transitional lumbosacral vertebra designated S1 for the purposes of this study. There is a rudimentary S1-S2 intervertebral disc. Grade 2 spondylolisthesis of L5 on S1 associated with bilateral chronic L5 pars interarticularis defects. There is uncovering of the disc and posterior osteophytes at the L5-S1 level contributing to severe bilateral neural foraminal narrowing. Degenerative changes are present in the visualized spine. Soft tissues: Unremarkable. CT/CT abdomen pelvis w con* [id number] IMPRESSION: 1. Chronic defects are present through the bilateral L5 pars interarticularis with associated grade 2 spondylolisthesis of L5 on S1. There is resultant severe narrowing of the bilateral L5-S1 neural foramina. 2. There is fluid in the distal esophagus consistent with reflux. 3. Hepatomegaly. 4. Intermediate density lesion in the uterine fundus likely represents a fibroid. Consider pelvic ultrasound for further evaluation if clinically warranted.
--- NOTE | 2022-09-10 12:40 | ED_ITS ---
Documented by User: MINDY Robles 09/10/22 15:02 HPI - Abdominal Pain General: Chief Complaint: Abdominal Pain Stated Complaint: ABD PAIN Time Seen by Provider: 09/10/22 12:32 Source: patient Mode of arrival: ambulatory Limitations: no limitations History of Present Illness: Patient is a 57-year-old female presents to ED today with a complaint of abdominal pain, nausea, vomiting. Patient states she began developing nausea yesterday evening around 9 PM after working outside. She states she has had approximately 9-10 episodes of nonbloody emesis. She states she is not having any diarrhea. She does report the urge to defecate but cannot or only in small amounts. She is reporting fairly significant pain throughout the left side of her abdomen that began around 2 to 3 AM this morning and has persisted and gradually worsened. She is not running fevers. Denies poor food exposures. No sick contacts. MD elicited complaint: abdominal pain and other (N/V) Onset (ago): hour(s) Pain Consistency: constant Location: LUQ and LLQ Severity: severe Radiation: none Migration to: no migration Exacerbating factors: nothing Relieving factors: nothing Associated Symptoms: Reports nausea, vomiting and other (reports urge to defecate but cannot/only in small amounts); Denies chills, diarrhea, dysuria, fever(s), hematochezia, hematuria and melena Related Data: Patient : No Review of Systems Const: Denies: fever(s), chills, body aches, fatigue or malaise Resp: Denies: dyspnea GI: Reports: abdominal pain, nausea, vomiting and other (reports urge to defecate but cannot/only in small amounts); Denies: diarrhea, hematochezia or melena : Denies: flank pain, dysuria or hematuria Musc: Denies: neck pain, back pain, extremity pain or joint pain Neuro: Denies: headache(s) PFSH ED PFSH: Medical History (Updated 09/12/22 @ 17:06 by Kael Mckoy MD) Amphetamine abuse Anxiety Arthritis Chronic cholecystitis History of cataract Hypertension Hypothalamic hypothyroidism Lactic acid acidosis Lumbar disc disease with radiculopathy Surgical History (Updated 09/10/22 @ 17:33 by Kael Mckoy MD) History of tubal ligation Social History Smoking and tobacco status: never smoked Second hand smoke exposure: Yes Alcohol intake: never Physical Exam Const: COMMON NORMALS: no acute distress, patient oriented x3, no limitations, alert and well nourished GENERAL APPEARANCE: cooperative ORIENTATION/CONSCIOUSNESS: Yes awake, Yes oriented to person, Yes oriented to place and Yes oriented to time Resp: COMMON NORMALS: normal respiratory effort and clear to auscultation bilaterally AUSCULTATION: clear to auscultation bilaterally Cardio: COMMON NORMALS: regular rate and regular rhythm RATE: regular rate RHYTHM: regular rhythm GI: COMMON NORMALS: Normal to inspection, nondistended, normoactive bowel sounds present, Soft to palpation, No hepatosplenomegaly present and no masses INSPECTION: Yes normal to inspection AUSCULTATION: Yes normoactive bowel sounds PALPATION: Yes Soft to palpation, Yes Tenderness to palpation present (GI) (reports 10/10 pain with palpation of L abdomen), No Guarding due to palpation present (GI), No Rigid due to palpation and Yes No hepatosplenomegaly present : COMMON NORMALS: Yes no CVA tenderness BLADDER/KIDNEY EXAM: Yes no CVA tenderness Back/Pelvis: COMMON NORMALS: no CVA tenderness Extremity: COMMON NORMALS: normal to inspection GENERAL: Yes normal exam except as noted Neuro: TRACI COMA SCALE: document GCS findings Bruno coma scale eye opening: Spontaneous Traci coma scale verbal response: Orientated Traci coma scale motor response: Obey commands Bruno coma scale total score: 15 COMMON NORMALS: patient oriented x3 SENSORIUM/ORIENTATION: Yes alert, Yes oriented to person, Yes oriented to place and Yes oriented to time Course Consultations: Consultation #1: Dr. Rivera-accepts admission Vital Signs: Vital signs: Vital Signs Temperature 97.6 F 09/14/22 12:40 Pulse Rate 90 09/14/22 12:40 Respiratory Rate 18 09/14/22 12:40 Blood Pressure 174/97 09/14/22 12:40 Pulse Oximetry 97 09/14/22 12:40 Oxygen Delivery Me thod Room Air 09/14/22 12:00 MDM - Abdominal Pain Medical Decision Making Patient is a 57-year-old female here for complaints of nausea and vomiting that began around 9 PM yesterday evening. She states she has had approximately 9-10 episodes of nonbloody emesis. She complains of some pain to the left side of her abdomen. She has the urge to defecate and can go in small amounts but reports pain. Patient's blood work showing many irregularities including significant leukocytosis with a white count of 26,000 with a left shift. Lactate of 4.7. Multiple electrolyte derangements. Acute kidney injury with a BUN/Cr 43/3.1. Elevations to AST/ALT with a normal T. bili. Patient obviously will require hospitalization secondary to lab results. We will add on blood cultures and start prophylactic antibiotics/sepsis fluid bolus. Working on trying to get stat urine. Case discussed with Dr. Rincon who agrees with need for hospitalization. Lab Data 09/13/22 05:18 09/14/22 04:26 Labs/Radiology: Radiology Impressions Abdomen X-Ray 09/12/22 10:42 IMPRESSION: Somewhat dramatic change in the bowel gas pattern compared to the CT scan of 09/10/2022. Since there appears to be distention of colon and small bowel and no prior evidence of small bowel obstruction on the previous CT scan, likely this is a profound ileus. The small bowel is significantly distended. Lumbar Spine CT 09/12/22 10:45 IMPRESSION: 1. Grade 2 spondylolisthesis of L5 resulting in severe central, bilateral subarticular recess and foraminal stenosis at L5-S1. There is significant encroachment and deformity on the L5 and S1 nerve roots bilaterally. 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 Very similar to the prior study from 2007. 2. Mild narrowing of the central canal and foramina at L4-5. Thoracic Spine CT 09/12/22 10:45 IMPRESSION: 1. Age-indeterminate nondisplaced fracture involving the superior LEFT articular facet of T11. 2. No significant central stenosis. 3. Increased amount of air throughout the GI tract suggesting ileus. 4. Bilateral lower lobe areas of atelectasis at the lung bases, LEFT greater than RIGHT. Abdomen/Pelvis CT 09/12/22 13:59 IMPRESSION: 1. Interval development of segmental colitis involving the descending and sigmoid colon. Consider C diff colitis or ischemic colitis as possible etiologies. 2. Mild-moderate gaseous distention involving majority of the GI tract likely secondary to generalized ileus. 3. Increased intraluminal fluid within the large bowel often seen secondary to various causes of diarrhea. 4. Mild-moderate amount of pelvic ascites presumed secondary to the developing colitis. 5. Interval development of bibasilar subsegmental atelectasis. 6. Additional chronic findings as above. Laboratory Results WBC 21.9 10^3/uL (4.0-10.0) H 09/10/22 14:30 RBC 4.38 10^6/uL (4.1-5.3) 09/10/22 14:30 Hgb 13.5 g/dL (11.5-15.3) 09/10/22 14:30 Hct 41.4 % (37.0-47.0) 09/10/22 14:30 MCV 94.5 fl (81-99) 09/10/22 14:30 MCH 30.8 pg (28.0-34.0) 09/10/22 14:30 MCHC 32.6 g/dL (30.0-36.0) 09/10/22 14:30 RDW 13.5 % (12.1-15.1) 09/10/22 14:30 Plt Count 370 10^3/cmm (130-400) 09/10/22 14:30 MPV 11.6 fL (7.4-10.4) H 09/10/22 14:30 Neut % (Auto) 88.9 % 09/10/22 14:30 Lymph % (Auto) 4.7 % 09/10/22 14:30 Forest % (Auto) 5.7 % 09/10/22 14:30 Eos % (Auto) 0.0 % 09/10/22 14:30 Baso % (Auto) 0.2 % 09/10/22 14:30 Neut # (Auto) 19.48 10^3/uL (1.8-7.7) H 09/10/22 14:30 Lymph # (Auto) 1.0 10^3/uL (0.8-4.8) 09/10/22 14:30 [place] # (Auto) 1.2 10^3/uL (0.2-0.9) H 09/10/22 14:30 Eos # (Auto) 0.0 10^3/uL (0.0-0.8) 09/10/22 14:30 Baso # (Auto) 0.0 10^3/uL (0.0-0.1) 09/10/22 14:30 Nucleated RBC % (auto) 0 % 09/10/22 14:30 Nucleated RBCs # 0.0 /100WBC 09/10/22 14:30 Sodium 133 mmol/L (136-145) L 09/10/22 14:30 Potassium 3.9 mmol/L (3.5-5.1) 09/10/22 14:30 Chloride 95 mmol/L (98-107) L 09/10/22 14:30 Carbon Dioxide 20 mmol/L (22-29) L 09/10/22 14:30 Anion Gap 21.9 (5-19) H 09/10/22 14:30 BUN 43 mg/dL (6-20) H 09/10/22 14:30 Creatinine 2.9 mg/dL (0.5-0.9) H 09/10/22 14:30 GFR Calculation 16.7 mL/min (90-130) L 09/10/22 14:30 Glucose 104 mg/dL (65-115) 09/10/22 14:30 Calculated Osmolality 287 mOsm/kg (285-295) 09/10/22 14:30 Lactic Acid 4.7 mmol/L (0.5-2.2) H* 09/10/22 13:05 Calcium 9.3 mg/dL (8.5-10.5) 09/10/22 14:30 Total Bilirubin 0.3 mg/dL (0.15-1.2) 09/10/22 14:30 AST 203 U/L (0-32) H 09/10/22 14:30 ALT 63 U/L (0-33) H 09/10/22 14:30 Alkaline Phosphatase 77 U/L (35-105) 09/10/22 14:30 Total Protein 6.9 g/dL (6.6-8.7) D 09/10/22 14:30 Albumin 3.5 g/dL (3.5-5.2) 09/10/22 14:30 Globulin 3.4 g/dL (1.3-4.6) 09/10/22 14:30 Lipase 22 U/L (13-60) 09/10/22 12:30 Vitamin B12 510 pg/mL (232-1245) 09/10/22 14:30 Folate > 20.0 ng/mL (4.8-37.3) 09/10/22 14:30 Procalcitonin 4.65 ng/mL (0-0.5) H 09/10/22 14:30 TSH 4.69 uIU/mL (0.27-4.20) H 09/10/22 14:30 Free T4 0.75 ng/dL (0.82-1.77) L 09/10/22 14:30 Free T3 2.2 PG/ML (2.0-4.4) 09/10/22 14:30 Urine Color Dark yellow (Yellow) 09/10/22 14:00 Urine Appearance Sl hazy (CLEAR) A 09/10/22 14:00 Urine pH 6 (5-7) 09/10/22 14:00 Ur Specific [place] 1.010 (1.005-1.030) 09/10/22 14:00 Urine Protein 2+ (Negative) H 09/10/22 14:00 Urine Glucose (UA) Norm (Normal) 09/10/22 14:00 Urine Ketones Negative (Negative) 09/10/22 14:00 Urine Blood 3+ (Negative) H 09/10/22 14:00 Urine Nitrate Negative (Negative) 09/10/22 14:00 Urine Bilirubin Neg (Negative) 09/10/22 14:00 Urine Urobilinogen Norm mg/dL (Negative) 09/10/22 14:00 Ur Leukocyte Esterase Negative (Negative) 09/10/22 14:00 Urine RBC 10-15 /hpf (0-2) H 09/10/22 14:00 Urine WBC 5-10 /hpf (0-5) H 09/10/22 14:00 Ur Squamous Epith Cells 5-10 /hpf (0-5) H 09/10/22 14:00 Amorphous Sediment Not Reportable 09/10/22 14:00 Urine Bacteria 1+ /hpf (NONE) H 09/10/22 14:00 Urine Opiates Screen Cancelled 09/10/22 14:00 Ur Barbiturates Screen Cancelled 09/10/22 14:00 Ur Phencyclidine Scrn Cancelled 09/10/22 14:00 Ur Amphetamines Screen Cancelled 09/10/22 14:00 U Benzodiazepines Scrn Cancelled 09/10/22 14:00 Urine Cocaine Screen Cancelled 09/10/22 14:00 U Marijuana (THC) Screen Cancelled 09/10/22 14:00 Ethyl Alcohol < 10 mg/dL (0-10) 09/10/22 14:30 Hepatitis A IgM Ab Non-reactive (Nonreactive) 09/10/22 14:30 Hep Bs Antigen Non-reactive (Nonreactive) 09/10/22 14:30 Hep Bs Antibody 49.0 (11.5-1000) 09/10/22 14:30 Hep B Core Total Ab Non-reactive (Nonreactive) 09/10/22 14:30 Hepatitis C Antibody Non-reactive (Nonreactive) 09/10/22 14:30 Discharge Plan Discharge Patient Disposition: Admitted As Inpatient Admit Provider: Kael Mckoy Clinical Impression: Gastroenteritis, Acute kidney injury, Sepsis, Hyponatremia, Elevated LFTs Condition: Stable Discharge Diet: Cardiac Discharge Activity: Resume usual activity and Increase activity as tolerated Coding Level of Care Code ED Acoustic Intelligence Specialist for Chg Fwd Documented by User: Akash Rincon MD 09/25/22 03:27 HPI - Abdominal Pain General: Chief Complaint: Abdominal Pain Stated Complaint: ABD PAIN Time Seen by Provider: 09/10/22 12:32 PFS ED PFSH: Medical History (Updated 09/12/22 @ 17:06 by Kael Mckoy MD) Amphetamine abuse Anxiety Arthritis Chronic cholecystitis History of cataract Hypertension Hypothalamic hypothyroidism Lactic acid acidosis Lumbar disc disease with radiculopathy Surgical History (Updated 09/10/22 @ 17:33 by Kael Mckoy MD) History of tubal ligation Social History Smoking and tobacco status: never smoked Second hand smoke exposure: Yes Alcohol intake: never Physical Exam Neuro: TRACI COMA SCALE: document GCS findings Bruno coma scale total score: 15 Course Vital Signs: Vital signs: Vital Signs Temperature 97.6 F 09/14/22 12:40 Pulse Rate 90 09/14/22 12:40 Respiratory Rate 18 09/14/22 12:40 Blood Pressure 174/97 09/14/22 12:40 Pulse Oximetry 97 09/14/22 12:40 Oxygen Delivery Me thod Room Air 09/14/22 12:00 MDM - Abdominal Pain Medical Decision Making Patient is a 57-year-old female here for complaints of nausea and vomiting that began around 9 PM yesterday evening. She states she has had approximately 9-10 episodes of nonbloody emesis. She complains of some pain to the left side of her abdomen. She has the urge to defecate and can go in small amounts but reports pain. Patient's blood work showing many irregularities including significant leukocytosis with a white count of 26,000 with a left shift. Lactate of 4.7. Multiple electrolyte derangements. Acute kidney injury with a BUN/Cr 43/3.1. Elevations to AST/ALT with a normal T. bili. Patient obviously will require hospitalization secondary to lab results. We will add on blood cultures and start prophylactic antibiotics/sepsis fluid bolus. Working on trying to get stat urine. Case discussed with Dr. Rincon who agrees with need for hospitalization. I discussed this case with MINDY Robles. I reviewed laboratory studies, documentation, imaging. Akash Rincon MD Emergency Medicine Lab Data 09/13/22 05:18 09/14/22 04:26 Labs/Radiology: Radiology Impressions Abdomen X-Ray 09/12/22 10:42 IMPRESSION: Somewhat dramatic change in the bowel gas pattern compared to the CT scan of 09/10/2022. Since there appears to be distention of colon and small bowel and no p rior evidence of small bowel obstruction on the previous CT scan, likely this is a profound ileus. The small bowel is significantly distended. Lumbar Spine CT 09/12/22 10:45 IMPRESSION: 1. Grade 2 spondylolisthesis of L5 resulting in severe central, bilateral subarticular recess and foraminal stenosis at L5-S1. There is significant encroachment and deformity on the L5 and S1 nerve roots bilaterally. 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 Very similar to the prior study from 2007. 2. Mild narrowing of the central canal and foramina at L4-5. Thoracic Spine CT 09/12/22 10:45 IMPRESSION: 1. Age-indeterminate nondisplaced fracture involving the superior LEFT articul ar facet of T11. 2. No significant central stenosis. 3. Increased amount of air throughout the GI tract suggesting ileus. 4. Bilateral lower lobe areas of atelectasis at the lung bases, LEFT greater than RIGHT. Abdomen/Pelvis CT 09/12/22 13:59 IMPRESSION: 1. Interval development of segmental colitis involving the descending and sigmoid colon. Consider C diff colitis or ischemic colitis as possible etiologies. 2. Mild-moderate gaseous distention involving majority of the GI tract likely secondary to generalized ileus. 3. Increased intraluminal fluid within the large bowel often seen secondary to various causes of diarrhea. 4. Mild-moderate amount of pelvic ascites presumed secondary to the developing colitis. 5. Interval development of bibasilar subsegmental atelectasis. 6. Additional chronic findings as above. Laboratory Results WBC 21.9 10^3/uL (4.0-10.0) H 09/10/22 14:30 RBC 4.38 10^6/uL (4.1-5.3) 09/10/22 14:30 Hgb 13.5 g/dL (11.5-15.3) 09/10/22 14:30 Hct 41.4 % (37.0-47.0) 09/10/22 14:30 MCV 94.5 fl (81-99) 09/10/22 14:30 MCH 30.8 pg (28.0-34.0) 09/10/22 14:30 MCHC 32.6 g/dL (30.0-36.0) 09/10/22 14:30 RDW 13.5 % (12.1-15.1) 09/10/22 14:30 Plt Count 370 10^3/cmm (130-400) 09/10/22 14:30 MPV 11.6 fL (7.4-10.4) H 09/10/22 14:30 Neut % (Auto) 88.9 % 09/10/22 14:30 Lymph % (Auto) 4.7 % 09/10/22 14:30 [place] % (Auto) 5.7 % 09/10/22 14:30 Eos % (Auto) 0.0 % 09/10/22 14:30 Baso % (Auto) 0.2 % 09/10/22 14:30 Neut # (Auto) 19.48 10^3/uL (1.8-7.7) H 09/10/22 14:30 Lymph # (Auto) 1.0 10^3/uL (0.8-4.8) 09/10/22 14:30 [place] # (Auto) 1.2 10^3/uL (0.2-0.9) H 09/10/22 14:30 Eos # (Auto) 0.0 10^3/uL (0.0-0.8) 09/10/22 14:30 Baso # (Auto) 0.0 10^3/uL (0.0-0.1) 09/10/22 14:30 Nucleated RBC % (auto) 0 % 09/10/22 14:30 Nucleated RBCs # 0.0 /100WBC 09/10/22 14:30 Sodium 133 mmol/L (136-145) L 09/10/22 14:30 Potassium 3.9 mmol/L (3.5-5.1) 09/10/22 14:30 Chloride 95 mmol/L (98-107) L 09/10/22 14:30 Carbon Dioxide 20 mmol/L (22-29) L 09/10/22 14:30 Anion Gap 21.9 (5-19) H 09/10/22 14:30 BUN 43 mg/dL (6-20) H 09/10/22 14:30 Creatinine 2.9 mg/dL (0.5-0.9) H 09/10/22 14:30 GFR Calculation 16.7 mL/min (90-130) L 09/10/22 14:30 Glucose 104 mg/dL (65-115) 09/10/22 14:30 Calculated Osmolality 287 mOsm/kg (285-295) 09/10/22 14:30 Lactic Acid 4.7 mmol/L (0.5-2.2) H* 09/10/22 13:05 Calcium 9.3 mg/dL (8.5-10.5) 09/10/22 14:30 Total Bilirubin 0.3 mg/dL (0.15-1.2) 09/10/22 14:30 AST 203 U/L (0-32) H 09/10/22 14:30 ALT 63 U/L (0-33) H 09/10/22 14:30 Alkaline Phosphatase 77 U/L (35-105) 09/10/22 14:30 Total Protein 6.9 g/dL (6.6-8.7) D 09/10/22 14:30 Albumin 3.5 g/dL (3.5-5.2) 09/10/22 14:30 Globulin 3.4 g/dL (1.3-4.6) 09/10/22 14:30 Lipase 22 U/L (13-60) 09/10/22 12:30 Vitamin B12 510 pg/mL (232-1245) 09/10/22 14:30 Folate > 20.0 ng/mL (4.8-37.3) 09/10/22 14:30 Procalcitonin 4.65 ng/mL (0-0.5) H 09/10/22 14:30 TSH 4.69 uIU/mL (0.27-4.20) H 09/10/22 14:30 Free T4 0.75 ng/dL (0.82-1.77) L 09/10/22 14:30 Free T3 2.2 PG/ML (2.0-4.4) 09/10/22 14:30 Urine Color Dark yellow (Yellow) 09/10/22 14:00 Urine Appearance Sl hazy (CLEAR) A 09/10/22 14:00 Urine pH 6 (5-7) 09/10/22 14:00 Ur Specific [place] 1.010 (1.005-1.030) 09/10/22 14:00 Urine Protein 2+ (Negative) H 09/10/22 14:00 Urine Glucose (UA) Norm (Normal) 09/10/22 14:00 Urine Ketones Negative (Negative) 09/10/22 14:00 Urine Blood 3+ (Negative) H 09/10/22 14:00 Urine Nitrate Negative (Negative) 09/10/22 14:00 Urine Bilirubin Neg (Negative) 09/10/22 14:00 Urine Urobilinogen Norm mg/dL (Negative) 09/10/22 14:00 Ur Leukocyte Esterase Negative (Negative) 09/10/22 14:00 Urine RBC 10-15 /hpf (0-2) H 09/10/22 14:00 Urine WBC 5-10 /hpf (0-5) H 09/10/22 14:00 Ur Squamous Epith Cells 5-10 /hpf (0-5) H 09/10/22 14:00 Amorphous Sediment Not Reportable 09/10/22 14:00 Urine Bacteria 1+ /hpf (NONE) H 09/10/22 14:00 Urine Opiates Screen Cancelled 09/10/22 14:00 Ur Barbiturates Screen Cancelled 09/10/22 14:00 Ur Phencyclidine Scrn Cancelled 09/10/22 14:00 Ur Amphetamines Screen Cancelled 09/10/22 14:00 U Benzodiazepines Scrn Cancelled 09/10/22 14:00 Urine Cocaine Screen Cancelled 09/10/22 14:00 U Marijuana (THC) Screen Cancelled 09/10/22 14:00 Ethyl Alcohol < 10 mg/dL (0-10) 09/10/22 14:30 Hepatitis A IgM Ab Non-reactive (Nonreactive) 09/10/22 14:30 Hep Bs Antigen Non-reactive (Nonreactive) 09/10/22 14:30 Hep Bs Antibody 49.0 (11.5-1000) 09/10/22 14:30 Hep B Core Total Ab Non-reactive (Nonreactive) 09/10/22 14:30 Hepatitis C Antibody Non-reactive (Nonreactive) 09/10/22 14:30 Discharge Plan Discharge Patient Disposition: Admitted As Inpatient Admit Provider: Kael Mckoy Clinical Impression: Gastroenteritis, Acute kidney injury, Sepsis, Hyponatremia, Elevated LFTs Condition: Stable Discharge Diet: Cardiac Discharge Activity: Resume usual activity and Increase activity as tolerated Coding Level of Care Code ED Acoustic Intelligence Specialist for Tabatha Mayer
[2022-09-10 12:49] LABS: Basophils # 0.1 10^3/uL (0.0-0.1); Basophils % 0.3 %; Hematocrit 48.8 % (37.0-47.0); Hemoglobin 15.9 g/dL (11.5-15.3); Lymphocytes # 1.5 10^3/uL (0.8-4.8); Lymphocytes % 5.6 %; Mean Corpuscular HGB Conc 32.6 g/dL (30.0-36.0); Mean Corpuscular Hemoglobin 30.6 pg (28.0-34.0); Mean Corpuscular Volume 93.8 fl (81-99); Mean Platelet Volume 12.3 fL (7.4-10.4); Monocytes # 0.8 10^3/uL (0.2-0.9); Monocytes % 3.1 %; Neutrophils # 23.39 10^3/uL (1.8-7.7); Neutrophils % 90.1 %; Nucleated Red Blood Cells % 0 %; Platelet Count 461 10^3/cmm (130-400); Red Cell Distribution Width 13.5 % (12.1-15.1)
[2022-09-10] MEDS: iohexol 350 mg/mL 500 mL Btl (per mL) IV (12:50)
[2022-09-10] MEDS: sodium chloride 0.9% 1,000 ML 999 ML IV ×2 (13:02→13:58)
[2022-09-10 13:05] LABS: Alanine Aminotransferase 65 U/L (0-33); Albumin Level 4.5 g/dL (3.5-5.2); Alkaline Phosphatase 97 U/L (35-105); Aspartate Amino Transferase 237 U/L (0-32); Blood Urea Nitrogen 43 mg/dL (6-20); Calcium 10.1 mg/dL (8.5-10.5); Carbon Dioxide 19 mmol/L (22-29); Globulin 4.2 g/dL (1.3-4.6); Glomerular Filtration Rate 15.5 mL/min (90-130); Glucose 176 mg/dL (65-115); Lipase 22 U/L (13-60); Total Bilirubin 0.3 mg/dL (0.15-1.2); Total Protein 8.7 g/dL (6.6-8.7)
[2022-09-10 13:40] LABS: Lactic Sepsis W/Reflex 4.7 mmol/L (0.5-2.2)
[2022-09-10] MEDS: piperacillin-tazobactam 4.5 GM in sodium chloride 0.9% (plus) 50 ML IV (13:58)
[2022-09-10 14:26] LABS: Urine Appearance SL Hazy (CLEAR); Urine Color Dark Yellow (Yellow)
[2022-09-10 14:27] LABS: Blood Urine 3+ (Negative); Glucose Urine UA Norm (Normal); Ketones Urine Negative (Negative); Protein Urine 2+ (Negative); pH Urine 6 (5-7)
[2022-09-10 14:28] LABS: Add Urine Culture? Yes; Add Urine Microscopic? YES; Bacteria Urine 1+ /hpf; Bilirubin Urine Neg (Negative); Leukocyte Esterase Urine Negative (Negative); Nitrate Urine Negative (Negative); Urobilinogen Urine Norm (Negative)
[2022-09-10 14:36] LABS: Basophils % 0.2 %; Hematocrit 41.4 % (37.0-47.0); Hemoglobin 13.5 g/dL (11.5-15.3); Lymphocytes % 4.7 %; Mean Corpuscular HGB Conc 32.6 g/dL (30.0-36.0); Mean Corpuscular Hemoglobin 30.8 pg (28.0-34.0); Mean Corpuscular Volume 94.5 fl (81-99); Mean Platelet Volume 11.6 fL (7.4-10.4); Monocytes # 1.2 10^3/uL (0.2-0.9); Monocytes % 5.7 %; Neutrophils # 19.48 10^3/uL (1.8-7.7); Neutrophils % 88.9 %; Nucleated Red Blood Cells % 0 %; Platelet Count 370 10^3/cmm (130-400); Red Blood Count 4.38 10^6/uL (4.1-5.3); Red Cell Distribution Width 13.5 % (12.1-15.1); White Blood Count 21.9 10^3/uL (4.0-10.0)
[2022-09-10 14:38] LABS: Reflex Lactate Order REFLEX LACTIC ORDERD
[2022-09-10 15:02] LABS: Alanine Aminotransferase 63 U/L (0-33); Albumin Level 3.5 g/dL (3.5-5.2); Alkaline Phosphatase 77 U/L (35-105); Anion Gap 21.9 (5-19); Aspartate Amino Transferase 203 U/L (0-32); Blood Urea Nitrogen 43 mg/dL (6-20); Calcium 9.3 mg/dL (8.5-10.5); Carbon Dioxide 20 mmol/L (22-29); Chloride 95 mmol/L (98-107); Globulin 3.4 g/dL (1.3-4.6); Glomerular Filtration Rate 16.7 mL/min (90-130); Glucose 104 mg/dL (65-115); Osmolality Calculated 287 mOsm/kg (285-295); Potassium 3.9 mmol/L (3.5-5.1); Sodium 133 mmol/L (136-145); Total Bilirubin 0.3 mg/dL (0.15-1.2); Total Protein 6.9 g/dL (6.6-8.7)
[2022-09-10] MEDS: ondansetron 2 mg/ML SDV 2 mL 4 MG IVP ×2 (16:06→19:37)
[2022-09-10] MEDS: morphine 4 mg/mL SDV 1 mL IVP (16:06)
[2022-09-10 16:40] LABS: Lactic Acid level (Lactate) 2.3 mmol/L (0.5-2.2)
--- NOTE | 2022-09-10 17:22 | P.HP_ITS ---
Providers/Chief Complaint Admitting Physician: Kael Mckoy MD Primary Care Provider: SOPHIA Cruz Chief Complaint: ABD PAIN History of Present Illness Saranya Grewal is a 57 year old female with past medical history of alcohol abuse, quit around 7 years ago, hypertension who presents to the ER today because of left abdominal pain which started at around 2 AM last night. As per patient she has been having multiple episodes of violent nonbloody, bilious, not foul-smelling food particle containing vomiting was started yesterday afternoon after she worked in her yard for 3 to 4 hours. Pain started after vomiting. Pain increases on movement, not associated with vomiting. Denies any diarrhea, constipation, sick contact, runny nose, cough, recent travels. States she used to drink alcohol around 6-7 years ago and has not drank since then. Blood work in the ER showed a white count 21,000, hemoglobin 13.5, chemistry 1 showing a sodium of 125, potassium of 3.4, chloride of 84,creatitine of 3.1 with BUN of 43, lactate of 4.7, AST/ALT of 237/65. Repeat BMP showing a sodium of 133, potassium of 3.9, chloride of 95, BUN of 43 with creatinine of 2.9 with a repeat lactate of 2.3, AST/ALT of 203/63 with a normal bilirubin, UA showing 3+ blood, negative for nitrite, leuk esterase Review of Systems General: Reports: 10 or more systems reviewed and unremarkable except in HPI and below Const: Denies: fever(s), chills, body aches, change in appetite, change in weight, malaise, night sweats, diaphoresis, change in sleep pattern, daytime sleepiness or snoring Eyes: Denies: change in vision, blurry vision, photophobia, eye discomfort or eye discharge ENMT: Denies: throat pain, enlarged tonsils, hoarseness, mouth pain, oral sores, dry mouth, tinnitus, nasal congestion or post nasal drip Card: Denies: chest pain, palpitations, irregular heart rhythm, edema, swelli ng of feet/ankles, lightheadedness, syncope, pre-syncope, dyspnea on exertion, orthopnea, leg pain with exertion or acrocyanosis Resp: Denies: dyspnea, productive cough, non-productive cough, wheezing, stridor, pain on inspiration, change in phlegm color, hemoptysis or chest congestion GI: Denies: abdominal pain, nausea, vomiting, hematemesis, coffee ground emesis, dysphagia, heartburn, diarrhea, constipation, bloating, GI cramping, peggy nge in bowel habits, pain on defecation, hematochezia or melena : Denies: flank pain, dysuria, urinary frequency, urinary urgency, urinary hesitancy, nocturia or hematuria Musc: Denies: neck pain, back pain, extremity pain, joint pain, joint swelling, joint redness, joint stiffness or limited range of motion Neuro: Denies: headache(s), numbness in extremities, weakness in extremities, sensory changes, lack of coordination, difficulty walking, frequent falls, dizziness, vertigo, confusion, Slurred speech present, difficulty communicating thoughts or seizure-like activity Psych: Denies: anxiety, depression, mood swings, panic attacks, hopelessness or irritability Endo: Denies: polyuria, polydipsia, tired all the time, cold intolerance, exce ssive sweating, flushing or heat intolerance Michael/Lymph: Denies: easy bruising or easy bleeding All/Imm: Denies: tongue swelling, facial swelling or acute wheezing Medications/Allergies Home Medications Medication Instructions Recorded Confirmed Last Taken Type loratadine 10 mg tablet (Claritin) 10 mg PO DAILY 11/05/19 09/10/22 09/09/22 History duloxetine 30 mg capsule,delayed 30 mg PO DAILY 09/10/22 09/10/22 09/09/22 History release fluoxetine 20 mg capsule 20 mg PO DAILY 09/10/22 09/10/22 09/09/22 History gabapentin 100 mg capsule 100 mg PO TID 09/10/22 09/10/22 09/09/22 History ibuprofen 200 mg capsule (Advil 200 mg PO BEDTIME 09/10/22 09/10/22 09/09/22 History Liqui-Gel) lisinopril 10 1 tab PO DAILY 09/10/22 09/10/22 09/09/22 History mg-hydrochlorothiazide 12.5 mg tablet multivitamin 1 tab PO DAILY 09/10/22 09/10/22 09/09/22 History Allergies Allergy/AdvReac Type Severity Reaction Status Date / Time Latex gloves Allergy Mild Itchy and Uncoded 07/09/21 10:02 break out PFSH Acute PFSH: Medical History (Updated 09/10/22 @ 17:36 by Kael Mckoy MD) Anxiety Arthritis Chronic cholecystitis History of cataract Hypertension Hypothalamic hypothyroidism Lactic acid acidosis Lumbar disc disease with radiculopathy Surgical History (Updated 09/10/22 @ 17:33 by Kael Mckoy MD) History of tubal ligation Social History Smoking and tobacco status: never smoked Second hand smoke exposure: Yes Alcohol intake: never Vitals/I&O/Wt Last Vital Signs Temp 98.3 F 09/10/22 12:26 Pulse 89 09/10/22 13:47 Resp 14 09/10/22 16:06 BP 150/103 09/10/22 13:47 Pulse Ox 94 09/10/22 16:06 O2 Del Method 09/10/22 13:47 09/10/22 09/10/22 09/10/22 06:59 14:59 22:59 Intake Total 1050 / 1050 Balance 1050 / 1050 Weight last 48 hrs Weight 53.524 kg Physical Exam Narrative: General: No acute distress, AO x3, dehydrated HEENT: PERRLA, pupils bilaterally equal and reactive Chest: Normal vesicular breath sounds, no added sounds, equal good air entry bilaterally CVS: S1-S2 regular, no murmurs, no tachycardia, no gallops, no rubs Abdomen: Soft, mild tenderness in left side, no organomegaly, bowel sounds present Neuro: No focal deficits, no facial deformity, AO x3, power 5/5 in all limbs Data 09/10/22 14:30 09/10/22 14:30 Micro: Microbiology 09/10/22 14:11 Blood Culture - Preliminary Blood SPECIMEN COLLECTED 09/10/22 14:19 Blood Culture - Preliminary Blood SPECIMEN COLLECTED A&P Assessment and plan (1) Sepsis: Ruled in. Patient admitted with leukocytosis, elevated lactate with target organ dysfunction of acute kidney injury with the possibility of gastroenteritis. Keep mean artery pressure 65, saturation over 90%. Check blood culture, urine culture, procalcitonin, MRSA swab, urine Legionella, bacterial antigen. (2) Nausea and vomiting: Appreciate CT abdomen pelvis results. Most likely in setting of gastroenteritis. Check stool studies. Check alcohol level, urine drug screen. Protonix 40 mg IV daily, Zofran as needed. Normal saline at 100 cc/h. (3) Acute kidney injury: Most likely in setting of dehydration along with chronic use of ibuprofen at home. Patient is also on lisinopril and hydrochlorothiazide. Medical reconciliation done for nephrotoxic drugs. CT abdomen pelvis negative for hydronephrosis or obstructive nephropathy. Check urine lites, urine creatinine, urine eosinophils. Monitor urine output strictly. Monitor BMP every 6 hourly given electrolyte abnormality (4) Hyponatremia: Fluid as above. Check A1c, lipid panel, TSH. Monitor every 6 hourly (5) Hypokalemia: Replaced. Monitor every 6 hourly. (6) High anion gap metabolic acidosis: Most likely in setting of VICTOR MANUEL and lactic acidosis. Monitor. (7) Elevated LFTs: Most likely in setting of chronic alcohol use getting exacerbated by sepsis and dehydration. Check hepatitis panel. Monitor daily (8) Lactic acid acidosis: Plan Hypertension: Goal blood pressure less than 140/90 mmHg. Takes lisinopril and hydrochlorothiazide at home. Stopping both in view of VICTOR MANUEL. Switch to metoprolol 25 mg twice daily along with hydralazine 25 mg 3 times daily. Clear liquid diet. Protonix for PUD prophylaxis Heparin 5000 every 12 hourly for DVT prophylaxis Full code. Attestations Medical Necessity Statement*: Admission for more than 2 midnights for management of acute kidney, elevated LFTs, lactic acidosis, finding gap metabolic acidosis, acute hyponatremia and hypokalemia in setting of sepsis from gastroenteritis Diagnoses Sepsis A41.9 Nausea and vomiting R11.2 Acute kidney injury N17.9 Hyponatremia E87.1 Hypokalemia E87.6 High anion gap metabolic acidosis E87.29 Elevated LFTs R79.89 Lactic acid acidosis E87.20
--- NOTE | 2022-09-10 17:26 | PC.NURSE ---
Attempted to call report for Room 261. Track Coach reported that floor nurse was busy and would call back.
[2022-09-10 18:09] LABS: Sodium 138 mmol/L (136-145)
[2022-09-10 18:10] LABS: Anion Gap 29.9 (5-19); Chloride 93 mmol/L (98-107); Osmolality Calculated 301 mOsm/kg (285-295); Potassium 3.9 mmol/L (3.5-5.1)
[2022-09-10 19:30] LABS: Hepatitis A Antibody IgM Non-Reactive (Nonreactive); Hepatitis B Core AB, Total Non-Reactive (Nonreactive); Hepatitis B Surface Antigen Non-Reactive (Nonreactive); Hepatitis C Virus Antibody Non-Reactive (Nonreactive)
[2022-09-10] MEDS: sodium chloride 0.9% 1,000 ML 100 ML IV (19:37)
[2022-09-10] MEDS: morphine 4 mg/mL SDV 1 mL 2 MG IVP (19:37)
[2022-09-10] MEDS: hyDRALAzine 25 mg Tablet PO (19:38)
[2022-09-10] MEDS: metoprolol tartrate 25 mg Tablet PO (19:38)
[2022-09-10] MEDS: heparin 5,000 unit/mL INJ 1 mL 5000 UNIT SUBCUT (19:38)
[2022-09-10] MEDS: pantoprazole 40 mg SDV IVP (19:38)
[2022-09-10] MEDS: gabapentin 100 mg Capsule PO (19:40)
[2022-09-10 21:22] LABS: Procalcitonin 4.65 ng/mL (0-0.5); Thyroid Stimulating Hormone 4.69 uIU/mL (0.27-4.20); Vitamin B12 510 pg/mL (232-1245)
[2022-09-10 21:38] LABS: Alcohol Level < 10 mg/dL (0-10)
[2022-09-10 23:03] LABS: Folate Level > 20.0 ng/mL (4.8-37.3)
[2022-09-11] VITALS (10 sets, daily range): BP systolic 91–111; BP diastolic 60–77; PULSE 81–107; RESP 14–21; TEMP 36.6–37.4; O2SAT 92–97
--- NOTE | 2022-09-11 01:41 | PC.NURSE ---
Patient stating that she has chronic back pain and that her back is hurting. Patient also states that she is having trouble sleeping. Offered to call physician to see if an order could be given for something to help patient sleep. Patient states no I wanna be awake in the morning. PRN Morphine and Tylenol given per patient request for pain. Patient states all I take at home for my pain is my Gabapentin.
[2022-09-11] MEDS: sodium chloride 0.9% 1,000 ML 100 ML IV (01:48)
[2022-09-11] MEDS: acetaminophen 325 mg Tablet 650 MG PO ×2 (01:48→17:41)
[2022-09-11] MEDS: morphine 4 mg/mL SDV 1 mL 2 MG IVP ×2 (01:48→18:27)
[2022-09-11 02:17] LABS: Free T4 Free Thyroxine 0.75 ng/dL (0.82-1.77); T3 Free 2.2 PG/ML (2.0-4.4)
[2022-09-11 05:41] LABS: Basophils % 0.3 %; Eosinophils # 0.1 10^3/uL (0.0-0.8); Hematocrit 37.3 % (37.0-47.0); Hemoglobin 12.2 g/dL (11.5-15.3); Lymphocytes # 1.2 10^3/uL (0.8-4.8); Lymphocytes % 8.8 %; Mean Corpuscular HGB Conc 32.7 g/dL (30.0-36.0); Mean Corpuscular Volume 94.9 fl (81-99); Mean Platelet Volume 12.2 fL (7.4-10.4); Monocytes # 0.5 10^3/uL (0.2-0.9); Monocytes % 3.3 %; Neutrophils # 12.13 10^3/uL (1.8-7.7); Neutrophils % 86.2 %; Nucleated Red Blood Cells % 0 %; Platelet Count 322 10^3/cmm (130-400); Red Blood Count 3.93 10^6/uL (4.1-5.3); Red Cell Distribution Width 13.6 % (12.1-15.1); White Blood Count 14.1 10^3/uL (4.0-10.0)
--- NOTE | 2022-09-11 06:00 | USCV_ITS ---
Saranya Grewal Age: 57 Gender: F : 1965 Exam Date: 09/11/2022 10:56 Ordering Phys: Kael Mckoy MD Technologist: CASI Exam Location: [facility] [place] Indication: sob BP: / HR: 91 Rhythm: Sinus Technical Quality: TDS MEASUREMENTS (Male / Female) Normal Values 2D ECHO LV Diastolic Diameter PLAX 4.3 cm 4.2 - 5.9 / 3.9 - 5.3 cm LV Systolic Diameter PLAX 3.2 cm IVS Diastolic Thickness 0.9 cm 0.6 - 1.0 / 0.6 - 0.9 cm IVS Systolic Thickness 1.1 cm LVPW Diastolic Thickness 0.8 cm 0.6 - 1.0 / 0.6 - 0.9 cm LVPW Systolic Thickness 1.1 cm LVOT Diameter 2.0 cm LV Ejection Fraction 2D Teich 48.5 % LV Ejection Fraction MOD 2C 71.1 % LV Ejection Fraction 2C AL 71.8 % LA Diameter 3.3 cm IVC Diameter 1.9 cm M-MODE Aortic Annulus Diameter 3.0 cm LA Ao Ratio MM 1.2 MV E Point Septal Separation 0.3 cm DOPPLER AV Peak Velocity 165.0 cm/s LVOT Peak Velocity 150.0 cm/s AV Area Cont Eq vti 3.2 cm squared AV Area Cont Eq pk 3.0 cm squared MV Area PHT 3.4 cm squared Mitral E to A Ratio 1.1 MV E' Velocity 52.5 cm/s Mitral E to MV E' Ratio 10.4 Mitral E to LV E' Lateral Ratio 10.2 Mitral E to LV E' Septal Ratio 10.7 TR Peak Velocity 276.0 cm/s TR Peak Gradient 30.5 mmHg TV Peak E Velocity 56.0 cm/s Right Atrial Pressure 6.0 mmHg Pulmonary Artery Systolic Pressu 36.5 mmHg FINDINGS Left Ventricle Normal left ventricular size, systolic function and wall thickness, with no regional wall motion abnormalities. Normal left ventricular wall thickness. Right Ventricle The right ventricle is normal in size and function. Right Atrium The right atrium is normal in size. Left Atrium The left atrium is normal in size. Mitral Valve Structurally normal mitral valve without significant stenosis or prolapse. There is no mitral regurgitation. Aortic Valve Structurally normal aortic valve without significant sclerosis or stenosis. There is no aortic regurgitation. Tricuspid Valve Structurally normal tricuspid valve without significant stenosis or regurgitation. Pulmonary artery systolic pressure elevated 46 mm Hg. Pulmonic Valve Structurally normal pulmonic valve without significant stenosis. There is no pulmonic regurgitation. Pericardium Normal pericardium without effusion. Aorta Normal ascending aorta dimension. IVC The inferior vena cava appears normal. CONCLUSIONS Normal left ventricular size, systolic function and wall thickness, with no regional wall motion abnormalities. Normal left ventricular wall thickness. Structurally normal tricuspid valve without significant stenosis or regurgitation. Pulmonary artery systolic pressure elevated 46 mm Hg. Ortiz Muhammad MD (Electronically Signed) Final Date: 11 September 2022 17:52 S
[2022-09-11 06:16] LABS: Alanine Aminotransferase 105 U/L (0-33); Albumin Level 3.1 g/dL (3.5-5.2); Alkaline Phosphatase 68 U/L (35-105); Anion Gap 16.3 (5-19); Aspartate Amino Transferase 318 U/L (0-32); Blood Urea Nitrogen 54 mg/dL (6-20); Calcium 8.7 mg/dL (8.5-10.5); Carbon Dioxide 20 mmol/L (22-29); Chloride 85 mmol/L (98-107); Chol HDL Ratio 4.63 mg/dL (0.0-4.40); Cholesterol 190 mg/dL (0-200); Globulin 3.2 g/dL (1.3-4.6); Glomerular Filtration Rate 13.9 mL/min (90-130); Glucose 80 mg/dL (65-115); HDL Cholesterol 41 mg/dL (60-100); LDL Cholesterol Calculated 118 mg/dL (50-129); LDL HDL Ratio 2.88 RATIO (0.00-3.22); Osmolality Calculated 258 mOsm/kg (285-295); Phosphorus 5.5 mg/dL (2.5-4.5); Potassium 4.3 mmol/L (3.5-5.1); Total Bilirubin 0.4 mg/dL (0.15-1.2); Total Protein 6.3 g/dL (6.6-8.7); Triglycerides 154 mg/dL (0-150)
[2022-09-11 06:19] LABS: Sodium 117 mmol/L (136-145)
[2022-09-11 06:23] LABS: Estmated Average Glucose 103; Hemoglobin A1C 5.2 % (4.0-6.0)
--- NOTE | 2022-09-11 06:23 | PC.NURSE ---
Dr. Piña notified of critical sodium of 117 with previous value of 133. Ordered to repeat BMP.
[2022-09-11 07:42] LABS: Anion Gap 17.3 (5-19); Blood Urea Nitrogen 56 mg/dL (6-20); Calcium 8.3 mg/dL (8.5-10.5); Carbon Dioxide 21 mmol/L (22-29); Chloride 93 mmol/L (98-107); Glomerular Filtration Rate 15.5 mL/min (90-130); Glucose 91 mg/dL (65-115); Osmolality Calculated 277 mOsm/kg (285-295); Potassium 5.3 mmol/L (3.5-5.1); Sodium 126 mmol/L (136-145)
[2022-09-11] MEDS: heparin 5,000 unit/mL INJ 1 mL 5000 UNIT SUBCUT ×2 (08:42→20:49)
[2022-09-11] MEDS: gabapentin 100 mg Capsule PO ×3 (08:42→20:49)
[2022-09-11] MEDS: hyDRALAzine 25 mg Tablet PO ×2 (08:42→17:41)
[2022-09-11] MEDS: fluoxetine 20 mg Capsule PO (08:42)
[2022-09-11] MEDS: duloxetine 30 mg Capsule PO (08:42)
[2022-09-11] MEDS: calcium gluconate 0.9% NaCL 1 GM/50 ML PREMIX IV (12:28)
[2022-09-11] MEDS: insulin regular-human 10 UNIT in SYRINGE 1 EACH 5 UNIT IVP (12:29)
[2022-09-11] MEDS: magnesium hydroxide 30 mL UDC PO (12:29)
[2022-09-11] MEDS: sennosides-docusate Tablet 1 TAB PO ×2 (12:29→17:41)
[2022-09-11] MEDS: TRAMadol 50 mg Tablet PO (12:41)
[2022-09-11 12:51] LABS: Creatine Phosphokinase 13852 U/L (26-192)
[2022-09-11] MEDS: sodium polystyrene sulfonate 15 gm/60 mL Btl PO (13:20)
--- NOTE | 2022-09-11 14:07 | P.PN_ITS ---
Subjective Subjective: No acute events overnight. Patient has remained hemodynamically stable and afebrile. Continues been on room air. Today morning complaining of generalized body pains along with muscle cramps mostly in the calfs. Complaining of abdominal distention. Has not had a bowel movement since admission. A lot of urine studies from yesterday still pending including drug screen and urine lites. Vitals/I&O/Wt Last Vital Signs Temp 98.1 F 09/11/22 12:00 Pulse 84 09/11/22 12:00 Resp 16 09/11/22 12:00 BP 102/64 09/11/22 12:00 Pulse Ox 97 09/11/22 12:00 O2 Del Method 09/11/22 12:00 09/10/22 09/11/22 09/11/22 22:59 06:59 14:59 Intake Total 2049 618.333 / 2668.333 1350.1 / 1350.1 Balance 2049 618.333 / 2668.333 1350.1 / 1350.1 Weight last 48 hrs Weight 89.811 kg Weight 53.524 kg Physical Exam Narrative: General: No acute distress, AO x3, dehydrated HEENT: PERRLA, pupils bilaterally equal and reactive Chest: Normal vesicular breath sounds, no added sounds, equal good air entry bilaterally CVS: S1-S2 regular, no murmurs, no tachycardia, no gallops, no rubs Abdomen: Soft, mild tenderness in left side, distended, no organomegaly, bowel sounds present but sluggish Neuro: No focal deficits, no facial deformity, AO x3, power 5/5 in all limbs Urinary Catheter Management: Borden: Cath Placed During This Visit: yes Urinary Catheter Date of Insertion: 09/11/22 Urinary Catheter Time of Insertion: 13:15 Data 09/11/22 04:05 09/11/22 06:52 Micro: Microbiology 09/10/22 14:00 Urine Culture - Preliminary Urine,Clean Catch 09/10/22 14:11 Blood Culture - Preliminary Blood SPECIMEN COLLECTED 09/10/22 14:19 Blood Culture - Preliminary Blood SPECIMEN COLLECTED A&P Assessment and plan (1) Sepsis: Ruled in. Patient admitted with leukocytosis, elevated lactate with target organ dysfunction of acute kidney injury with the possibility of gastroenteritis. Keep mean artery pressure 65, saturation over 90%. Follow-up blood culture, urine culture. Pro-Paco elevated. Urine Legionella and bacterial antigen pending, MRSA negative. (2) Nausea and vomiting: Appreciate CT abdomen pelvis results. Most likely in setting of gastroenteritis versus secondary to acute kidney injury with uremia. Protonix 40 mg IV daily, Zofran as needed. Continue with IV fluids. (3) Acute kidney injury: Most likely in setting of dehydration along with chronic use of ibuprofen at home. Patient is also on lisinopril and hydrochlorothiazide. Medical reconciliation done for nephrotoxic drugs. CT abdomen pelvis negative for hydronephrosis or obstructive nephropathy. Check urine lites, urine creatinine, urine eosinophils. Check CPK Monitor urine output strictly. Borden catheterization Repeat BMP in evening. Had hypokalemia yesterday yesterday but hyperkalemia today. Kayexalate 1 dose, D50/10 units insulin. Repeating BMP in evening. Continue to monitor. Telemetry. (4) Hyponatremia: Fluid as above. Appreciate TSH, lipid panel results. Repeat BMP in evening. Depending on the result of the urine lites and repeat BMP we will plan for salt tablets. (5) High anion gap metabolic acidosis: Resolving. Most likely in setting of VICTOR MANUEL and lactic acidosis. Monitor. (6) Elevated LFTs: Most likely in setting of chronic alcohol use getting exacerbated by sepsis, dehydration and rhabdomyolysis. Hepatitis panel negative. Monitor daily (7) Lactic acid acidosis: (8) Rhabdomyolysis: In setting of dehydration and possible sepsis from gastroenteritis. Check respiratory viral panel. Urine drug screen negative. Plan Hypertension: Goal blood pressure less than 140/90 mmHg. Takes lisinopril and hydrochlorothiazide at home. Stopping both in view of VICTOR MANUEL. Blood pressure soft today. Change to hydralazine 25 mg twice daily. Hold off on metoprolol for now. Patient complaining of generalized body pain. Most likely in setting of rhabdomyolysis. Tramadol 50 mg every 6 hourly. Lidocaine patch for possible left abdominal muscular strain. Clear liquid diet. Protonix for PUD prophylaxis Heparin 5000 every 12 hourly for DVT prophylaxis Full code. Attestations Medical Necessity Statement*: Requires further hospitalization for management of acute kidney injury along with hyponatremia and hyperkalemia, severe rh abdomyolysis in a patient with sepsis from gastroenteritis Diagnoses Sepsis A41.9 Nausea and vomiting R11.2 Acute kidney injury N17.9 Hyponatremia E87.1 High anion gap metabolic acidosis E87.29 Elevated LFTs R79.89 Lactic acid acidosis E87.20 Rhabdomyolysis M62.82
[2022-09-11 14:13] LABS: Amphetamines Screen Urine Positive (Negative); Barbiturates Screen Urine Negative (Negative); Benzodiazepines Screen Urine Negative (Negative); Cocaine Screen Urine Negative (Negative); Opiate Screen Urine Positive (Negative); PCP Screen Urine Negative (Negative); THC Screen Urine Negative (Negative)
[2022-09-11 14:18] LABS: Potassium, Radom Urine 44 mmol/L; Urine Creatinine 42 mg/dL (28-217); Urine Random Chloride 23 mmol/L; Urine Random Sodium 20 mmol/L
[2022-09-11 15:45] LABS: Eosinophil Urine No Eosinophils Seen
[2022-09-11 15:46] LABS: Urine Eosinophil Count 0 (0-0)
[2022-09-11] MEDS: sodium chloride 0.9% 1,000 ML 150 ML IV ×2 (15:59→23:12)
[2022-09-11 17:20] LABS: Adenovirus Not Detected (NOT DETECT); Chlamydia Pneumoniae Not Detected (NOT DETECT); Coronavirus 229E,HKU1,NL63,OC4 Not Detected (NOT DETECT); Human Metapneumovirus Not Detected (NOT DETECT); Human Rhinovirus/Enterovirus Not Detected (NOT DETECT); Influenza A Not Detected (NOT DETECT); Influenza A H1 Not Detected (NOT DETECT); Influenza A H1-2009 Not Detected (NOT DETECT); Influenza A H3 Not Detected (NOT DETECT); Influenza B Not Detected (NOT DETECT); Mycoplasma Pneumoniae Not Detected (NOT DETECT); Parainfluenza Virus Type 1 Not Detected (NOT DETECT); Parainfluenza Virus Type 2 Not Detected (NOT DETECT); Parainfluenza Virus Type 3 Not Detected (NOT DETECT); Parainfluenza Virus Type 4 Not Detected (NOT DETECT); Respiratory Syncytial Virus A Not Detected (NOT DETECT); Respiratory Syncytial Virus B Not Detected (NOT DETECT); SARS-COV-2 Not Detected (NOT DETECT)
[2022-09-11 17:28] LABS: Anion Gap 15.2 (5-19); Blood Urea Nitrogen 56 mg/dL (6-20); Calcium 8.3 mg/dL (8.5-10.5); Carbon Dioxide 22 mmol/L (22-29); Chloride 94 mmol/L (98-107); Glucose 88 mg/dL (65-115); Osmolality Calculated 279 mOsm/kg (285-295); Potassium 4.2 mmol/L (3.5-5.1); Sodium 127 mmol/L (136-145)
[2022-09-11] MEDS: pantoprazole 40 mg SDV IVP (17:41)
[2022-09-12] VITALS (8 sets, daily range): BP systolic 92–118; BP diastolic 56–74; PULSE 98–104; RESP 18–120; TEMP 36.3–36.9; O2SAT 93–96; BMI 36.8
[2022-09-12] MEDS: TRAMadol 50 mg Tablet PO ×3 (02:32→20:28)
[2022-09-12] MEDS: ondansetron 2 mg/ML SDV 2 mL 4 MG IVP (02:33)
[2022-09-12] MEDS: sodium chloride 0.9% 1,000 ML 150 ML IV ×4 (05:46→23:16)
[2022-09-12] MEDS: magnesium hydroxide 30 mL UDC PO (08:51)
[2022-09-12] MEDS: lidocaine 5% Patch 1 PATCH TOPICAL (08:51)
[2022-09-12] MEDS: heparin 5,000 unit/mL INJ 1 mL 5000 UNIT SUBCUT ×2 (08:51→20:28)
[2022-09-12] MEDS: fluoxetine 20 mg Capsule PO (08:52)
[2022-09-12] MEDS: duloxetine 30 mg Capsule PO (08:52)
[2022-09-12] MEDS: sennosides-docusate Tablet 1 TAB PO (08:52)
[2022-09-12] MEDS: gabapentin 100 mg Capsule PO ×3 (08:52→20:28)
--- NOTE | 2022-09-12 10:18 | PC.CHAP ---
Pastoral Care Encounter/Spiritual Assessment Type of Contact [x] Declined dog behaviorist visit [] Patient/Family/Request visit [] Outpatient visit [] Follow-up visit [] Physician referral [] Code/Alert [] Routine visit [] Staff referral [] Actively dying [] Patient sleeping [] Family support [] [] Out of room [] Palliative care [] [] Receiving care in room [] Pre-surgical visit [] Trauma [] Long length of stay [] ICU visit [] Other: Relational/Emotional Strength [] Patient feels connected with others/family/visitors/staff [] Distress [] Loneliness/isolation [] Abandonment Spirituality of Patient [] Person of [place] [] Attends Evangelical of their [place] [] Believes in Prayer [] Reads Bible or Bahai materials [x] There are Spiritual issues to be addressed Junction Maker Interventions [] Prayer [] Active listening [] Non-anxious presence [] Spiritual/emotional support [] Crisis/trauma care [] Spiritual counseling [] Bereavement support [] Provided bereavement packet [] Provided Bible/devotional materials [] Provided toy/stuffed animal, coloring book to patient or family member [] Provided Communion [] Anointing/[place] [] Salvation [x] Completed spiritual assessment [] Other: Impact on Illness or Injury [] Angry [] Fearful [] Anxious [] Often cries [] Exhaustion [] Unable to work [] Unable to attend anabaptism [] Unable to walk/stand [] Unable to read [] Unable to drive [] Unable to eat/drink [] Unable to sleep [] Unable to be with family [] Patient intubated [] Other: Summary Time spent with patient
[2022-09-12 10:21] LABS: Basophils % 0.2 %; Hematocrit 34.1 % (37.0-47.0); Hemoglobin 11.4 g/dL (11.5-15.3); Lymphocytes # 0.7 10^3/uL (0.8-4.8); Lymphocytes % 5.7 %; Mean Corpuscular HGB Conc 33.4 g/dL (30.0-36.0); Mean Corpuscular Hemoglobin 30.6 pg (28.0-34.0); Mean Corpuscular Volume 91.4 fl (81-99); Mean Platelet Volume 11.9 fL (7.4-10.4); Monocytes # 0.4 10^3/uL (0.2-0.9); Monocytes % 3.5 %; Neutrophils # 10.41 10^3/uL (1.8-7.7); Neutrophils % 90.3 %; Nucleated Red Blood Cells % 0 %; Platelet Count 290 10^3/cmm (130-400); Red Blood Count 3.73 10^6/uL (4.1-5.3); Red Cell Distribution Width 13.7 % (12.1-15.1); White Blood Count 11.5 10^3/uL (4.0-10.0)
[2022-09-12 10:35] LABS: Alanine Aminotransferase 121 U/L (0-33); Albumin Level 2.8 g/dL (3.5-5.2); Alkaline Phosphatase 76 U/L (35-105); Anion Gap 14.7 (5-19); Aspartate Amino Transferase 238 U/L (0-32); Blood Urea Nitrogen 50 mg/dL (6-20); Calcium 8.5 mg/dL (8.5-10.5); Carbon Dioxide 21 mmol/L (22-29); Chloride 99 mmol/L (98-107); Globulin 3.6 g/dL (1.3-4.6); Glomerular Filtration Rate 24.3 mL/min (90-130); Glucose 103 mg/dL (65-115); Osmolality Calculated 286 mOsm/kg (285-295); Potassium 3.7 mmol/L (3.5-5.1); Sodium 131 mmol/L (136-145); Total Bilirubin 0.3 mg/dL (0.15-1.2); Total Protein 6.4 g/dL (6.6-8.7)
--- NOTE | 2022-09-12 10:42 | XR_ITS ---
WS: [id number] XR abdomen 1V* [id number] REASON FOR EXAM: Constipation FINDINGS: Significant gaseous distention of multiple small bowel loops in the central and upper abdomen. There are also appears to be moderate distention of segments of colon as well. The stomach does not appear distended. No free air or retroperitoneal air is identified. XR/XR abdomen 1V* [id number] IMPRESSION: Somewhat dramatic change in the bowel gas pattern compared to the CT scan of 09/10/2022. Since there appears to be distention of colon and small bowel and no pr ior evidence of small bowel obstruction on the previous CT scan, likely this is a profound ileus. The small bowel is significantly distended.
--- NOTE | 2022-09-12 10:45 | CT_ITS ---
WS: [id number] CT LUMBAR SPINE, noncontrast. HISTORY: Back pain TECHNIQUE: Contiguous axial imaging are performed. Sagittal and coronal reformats are submitted and r eviewed. All CT scans at [facility] use at least one of these dose optimization techniques: a utomated exposure control; mA and/or kV adjustment per patient size (includes targeted exams where do se is matched to clinical indication); or iterative reconstruction. IV contrast: None DLP: 1692.70 mGy.cm COMPARISON: 04/11/2008 Reidentified is at least grade 2 spondylolisthesis of L5. Anterolisthesis of L5 by 18 mm. Fragmentati on and fractures along the pars interarticularis. There is a large anterior bridging osteophyte at L5 -S1 anteriorly. Severe narrowing of the remaining L5-S1 disc spaces. The remaining vertebral bodies a re normally aligned. L1-2: Normal. L2-3: Normal. L3-4: Diffuse annular disc bulging. No high-grade stenosis. L4-5: No high-grade stenosis. Very mild encroachment upon the central canal and foramina. L5-S1: Marked central and bilateral foraminal subarticular recess stenosis. Patient has known bilater al pars interarticularis defects. There is significant deformity and encroachment upon the RIGHT L5 a nd S1 nerve roots. This has been previously described. Mild atherosclerosis aorta. Bilateral renal cysts have been described on a prior CT of the abdomen. H igh density contrast in the gallbladder from the recent injection of IV contrast. CT/CT lumbar spine wo con* [id number] IMPRESSION: 1. Grade 2 spondylolisthesis of L5 resulting in severe central, bilateral suba rticular recess and foraminal stenosis at L5-S1. There is significant encroachm ent and deformity on the L5 and S1 nerve roots bilaterally. Fragmented bilatera l pars defects at L5. Very similar to the prior study from 2007. 2. Mild narrowing of the central canal and foramina at L4-5.
--- NOTE | 2022-09-12 10:45 | CT_ITS ---
WS: [id number] CT THORACIC SPINE HISTORY: Back pain TECHNIQUE: Axial images are reviewed through the thoracic spine. Images are reformatted in sagittal a nd coronal planes. All CT scans at [facility] use at least one of these dose optimization tiera hniques: automated exposure control; mA and/or kV adjustment per patient size (includes targeted exam s where dose is matched to clinical indication); or iterative reconstruction. DLP: 1692.70 mGy.cm COMPARISON: None available. Motion and breathing artifact. Increasing air distention of the GI tract suggesting ileus. Enlarged substernal thyroid consistent with goiter. Mild increase in thoracic kyphosis. Nondisplaced fracture through the superior LEFT articular facet o f T11 seen best on the sagittal reformats. Age-indeterminate fracture. May not be acute. Disc spaces are mildly narrowed. No disc protrusions or central or foraminal stenosis within the thoracic spine. Lung volumes are decreased. Bilateral areas of atelectasis in the lower lung cruz, greatest on the LEFT lower lung field. CT/CT thoracic spin wo con* [id number] IMPRESSION: 1. Age-indeterminate nondisplaced fracture involving the superior LEFT articul ar facet of T11. 2. No significant central stenosis. 3. Increased amount of air throughout the GI tract suggesting ileus. 4. Bilateral lower lobe areas of atelectasis at the lung bases, LEFT greater t [place] RIGHT.
[2022-09-12 10:50] LABS: Slide Review Slide Review Perform
[2022-09-12 11:04] LABS: Creatine Phosphokinase 5109 U/L (26-192)
--- NOTE | 2022-09-12 13:59 | CTR_ITS ---
PROCEDURE INFORMATION: Exam: CT Abdomen And Pelvis Without Contrast Exam date and time: 09/12/2022 3:54 PM Age: 57 years old Clinical indication: Abdominal pain; Additional info: Possible sbo TECHNIQUE: Imaging protocol: Computed tomography of the abdomen and pelvis without contrast. Radiation optimization: All CT scans at this facility use at least one of these dose optimization techniques: automated exposure control; mA and/or kV adjustment per patient size (includes targeted exams where dose is matched to clinical indication); or iterative reconstruction. REPORTING DATA: Count of CT and Cardiac NM exams in prior 12 months: This patient has received 3 known CTs and 0 known cardiac nuclear medicine studies in the 12 months prior to the current study. COMPARISON: CT abdomen pelvis w con* [id number] 09/10/2022 12:50 PM RADIATION DOSE METRICS: Total DLP (mGy-cm): 1082.2 FINDINGS: Lungs: There is mild bibasilar subsegmental atelectasis that has developed. Liver: Mildly enlarged with fatty infiltration. No mass. Gallbladder and bile ducts: There is vicarious excretion of dye within the gallbladder lumen from previous CT injection. Pancreas: Unremarkable. Main pancreatic duct is not significantly dilated. Spleen: Normal. No splenomegaly. Adrenal glands: Normal. No mass. Kidneys and ureters: Small cortical cysts both kidneys difficult to adequately assessed on this exam. Stomach and bowel: There is generalized gaseous distention involving majority of the small bowel and large bowel ending at the sigmoid colon with few scattered air-fluid levels more typical of generalized ileus. There is increased intraluminal fluid throughout the large bowel often secondary to various causes of diarrhea. There is interval development of mild colonic wall thickening involving descending and sigmoid colon with some adjacent pericolonic fat stranding suspicious for segmental colitis. There is mild-moderate amount of accompanying ascites within the pelvis that has also developed. Appendix: No evidence of appendicitis. Intraperitoneal space: See Stomach and bowel finding. Vasculature: Scattered atherosclerotic changes of the abdominal aorta and iliac vessels. No aortic aneurysm. Lymph nodes: Unremarkable. No enlarged lymph nodes. Urinary bladder: There is a Borden catheter balloon within the urinary bladder which is collapsed and difficult to further assess. Reproductive: There is mild bulbous like enlargement of the uterus secondary to 4 cm mass within the uterine fundus that may represent a large fibroid. Bones/joints: There is longstanding grade 1 isthmic spondylolisthesis L5-S1 with secondary degenerative changes resulting in bilateral foraminal stenosis. Soft tissues: Unremarkable. CT/CT abdomen pelvis wo con [id number] IMPRESSION: 1. Interval development of segmental colitis involving the descending and sigmoid colon. Consider C diff colitis or ischemic colitis as possible etiologies. 2. Mild-moderate gaseous distention involving majority of the GI tract likely secondary to generalized ileus. 3. Increased intraluminal fluid within the large bowel often seen secondary to various causes of diarrhea. 4. Mild-moderate amount of pelvic ascites presumed secondary to the developing colitis. 5. Interval development of bibasilar subsegmental atelectasis. 6. Additional chronic findings as above.
--- NOTE | 2022-09-12 16:51 | P.PN_ITS ---
Subjective Subjective: No acute events overnight. Patient laying comfortably in bed. Remains on room air. Denies any nausea, vomiting, headache. States muscular pain is low. On discussing about amphetamine abuse patient states that she uses amphetamine occasionally because of back pain. States back pain has been c onstant and ongoing. Has been having multiple episodes of diarrhea. Denies any abdominal pain. Vitals/I&O/Wt Last Vital Signs Temp 97.4 F L 09/12/22 16:00 Pulse 98 09/12/22 16:00 Resp 18 09/12/22 16:00 BP 113/74 09/12/22 16:00 Pulse Ox 93 09/12/22 16:00 O2 Del Method 09/12/22 16:00 09/12/22 09/12/22 09/12/22 06:59 14:59 22:59 Intake Total 1465 / 5825.1 1240 / 1240 Output Total 1200 / 3150 Balance 265 / 2675.1 1240 / 1240 Weight last 48 hrs Weight 94.347 kg Weight 89.811 kg Weight 89.811 kg Physical Exam Narrative: General: No acute distress, AO x3, HEENT: PERRLA, pupils bilaterally equal and reactive Chest: Normal vesicular breath sounds, no added sounds, equal good air entry bilaterally CVS: S1-S2 regular, no murmurs, no tachycardia, no gallops, no rubs Abdomen: Soft, mild generalized tenderness, distended, no organomegaly, bowel sounds present but sluggish Neuro: No focal deficits, no facial deformity, AO x3, power 5/5 in all limbs Urinary Catheter Management: Borden: Cath Placed During This Visit: yes Reason for Continuing Indwelling Catheter: Other Urinary Catheter Date of Insertion: 09/11/22 Urinary Catheter Time of Insertion: 13:15 Data 09/12/22 10:02 09/12/22 10:02 Micro: Microbiology 09/10/22 14:00 Urine Culture - Final Urine,Clean Catch 09/10/22 14:00 Bacterial Antigens - Final Urine Kidney 09/10/22 14:00 Legionella Urinary Antigen - Final Unknown Source 09/10/22 14:19 Blood Culture - Preliminary Blood NEGATIVE TO DATE 09/10/22 14:11 Blood Culture - Preliminary Blood NEGATIVE TO DATE 09/10/22 21:00 MRSA Culture - Final Nose A&P Assessment and plan (1) Sepsis: Ruled in. Patient admitted with leukocytosis, elevated lactate with target organ dysfunction of acute kidney injury with the possibility of gastroenteritis. Keep mean artery pressure 65, saturation over 90%. Follow-up blood culture, urine culture. Pro-Paco elevated. Urine Legionella and bacterial antigen negative, MRSA negative. (2) Diarrhea: With abdominal distention which seems to be worsening. Abdominal x-ray done today shows increased dramatic distention of small bowel. We will repeat CT abdomen pelvis without contrast to rule out small bowel obstruction versus a possible ileus. Check stool studies. Start lactate to rule out bowel ischemia given the distention on abdominal x-ray Continue with IV hydration. (3) Acute kidney injury: Most likely in setting of dehydration along with chronic use of ibuprofen at home. Patient is also on lisinopril and hydrochlorothiazide. Medical reconciliation done for nephrotoxic drugs. CT abdomen pelvis negative for hydronephrosis or obstructive nephropathy. Appreciate urine lites. CPK elevated. FeNa-1%. Prerenal. Monitor urine output strictly. Borden catheterization Repeat BMP in evening. Monitor electrolytes. (4) Rhabdomyolysis: In setting of amphetamine abuse, dehydration and possible sepsis from gastroenteritis. Continue with IV fluids. Normal saline at 100 cc/h. Recheck CPK. (5) Nausea and vomiting: Appreciate CT abdomen pelvis results. Most likely in setting of gastroenteritis versus secondary to acute kidney injury with uremia. Protonix 40 mg IV daily, Zofran as needed. Continue with IV fluids. (6) Hyponatremia: Resolving. Fluid as above. Appreciate TSH, lipid panel results. Repeat BMP in evening. Depending on the result of the urine lites and repeat BMP we will plan for salt tablets. (7) High anion gap metabolic acidosis: Resolved. Most likely in setting of VICTOR MANUEL and lactic acidosis. Monitor. (8) Elevated LFTs: Most likely in in setting of rhabdomyolysis and amphetamine abuse with dehydration Hepatitis panel negative. Monitor daily (9) Lactic acid acidosis: (10) Malaise: (11) Amphetamine abuse: Plan Chronic back pain: Check CT thoracic and lumbar spine. Tramadol as needed for pain. We will try to avoid NSAIDs. Hypertension: Goal blood pressure less than 140/90 mmHg. Takes lisinopril and hydrochlorothiazide at home. Stopping both in view of VICTOR MANUEL. For off on antihypertensives for now. Full liquid diet. Protonix for PUD prophylaxis Heparin 5000 every 12 hourly for DVT prophylaxis Full code. Attestations Medical Necessity Statement*: Requires further hospitalization for management of ongoing rhabdomyolysis, acute kidney injury, diarrhea in setting of amphetamine abuse while ileus versus C. difficile is ruled out Diagnoses Sepsis A41.9 Diarrhea R19.7 Acute kidney injury N17.9 Rhabdomyolysis M62.82 Nausea and vomiting R11.2 Hyponatremia E87.1 High anion gap metabolic acidosis E87.29 Elevated LFTs R79.89 Lactic acid acidosis E87.20 Malaise R53.81 Amphetamine abuse F15.10
[2022-09-12] MEDS: pantoprazole 40 mg SDV IVP (17:16)
[2022-09-12 17:34] LABS: Anion Gap 15.1 (5-19); Blood Urea Nitrogen 43 mg/dL (6-20); Calcium 8.2 mg/dL (8.5-10.5); Carbon Dioxide 19 mmol/L (22-29); Chloride 97 mmol/L (98-107); Glucose 103 mg/dL (65-115); Osmolality Calculated 277 mOsm/kg (285-295); Potassium 3.1 mmol/L (3.5-5.1); Sodium 128 mmol/L (136-145)
[2022-09-12] MEDS: potassium chloride ER 20 mEq Tablet 40 MEQ PO ×2 (18:10→19:02)
[2022-09-13] VITALS (10 sets, daily range): BP systolic 114–134; BP diastolic 70–87; PULSE 85–93; RESP 15–18; TEMP 36.4–37.1; O2SAT 92–95
[2022-09-13 05:46] LABS: Basophils % 0.3 %; Eosinophils # 0.1 10^3/uL (0.0-0.8); Eosinophils % 0.8 %; Hematocrit 32.8 % (37.0-47.0); Hemoglobin 10.6 g/dL (11.5-15.3); Lymphocytes # 0.7 10^3/uL (0.8-4.8); Lymphocytes % 9.2 %; Mean Corpuscular HGB Conc 32.3 g/dL (30.0-36.0); Mean Corpuscular Volume 92.9 fl (81-99); Mean Platelet Volume 12.1 fL (7.4-10.4); Monocytes # 0.4 10^3/uL (0.2-0.9); Monocytes % 5.8 %; Neutrophils % 83.6 %; Nucleated Red Blood Cells % 0 %; Platelet Count 238 10^3/cmm (130-400); Red Blood Count 3.53 10^6/uL (4.1-5.3); Red Cell Distribution Width 13.8 % (12.1-15.1); White Blood Count 7.6 10^3/uL (4.0-10.0)
[2022-09-13 06:09] LABS: Slide Review Slide Review Perform
[2022-09-13 06:12] LABS: Alanine Aminotransferase 101 U/L (0-33); Albumin Level 2.5 g/dL (3.5-5.2); Alkaline Phosphatase 79 U/L (35-105); Anion Gap 13.5 (5-19); Aspartate Amino Transferase 144 U/L (0-32); Blood Urea Nitrogen 35 mg/dL (6-20); Carbon Dioxide 21 mmol/L (22-29); Chloride 104 mmol/L (98-107); Globulin 3.4 g/dL (1.3-4.6); Glomerular Filtration Rate 35.8 mL/min (90-130); Glucose 97 mg/dL (65-115); Osmolality Calculated 288 mOsm/kg (285-295); Potassium 3.5 mmol/L (3.5-5.1); Sodium 135 mmol/L (136-145); Total Bilirubin 0.3 mg/dL (0.15-1.2); Total Protein 5.9 g/dL (6.6-8.7)
[2022-09-13 06:28] LABS: Creatine Phosphokinase 2266 U/L (26-192)
[2022-09-13] MEDS: sodium chloride 0.9% 1,000 ML 150 ML IV ×3 (07:27→22:50)
[2022-09-13] MEDS: magnesium hydroxide 30 mL UDC PO (08:09)
[2022-09-13] MEDS: sennosides-docusate Tablet 1 TAB PO ×2 (08:10→17:37)
[2022-09-13] MEDS: fluoxetine 20 mg Capsule PO (08:10)
[2022-09-13] MEDS: duloxetine 30 mg Capsule PO (08:10)
[2022-09-13] MEDS: gabapentin 100 mg Capsule PO ×3 (08:10→21:17)
[2022-09-13] MEDS: heparin 5,000 unit/mL INJ 1 mL 5000 UNIT SUBCUT ×2 (08:10→21:17)
[2022-09-13] MEDS: lidocaine 5% Patch 1 PATCH TOPICAL (08:13)
[2022-09-13] MEDS: TRAMadol 50 mg Tablet PO (13:36)
--- NOTE | 2022-09-13 13:44 | P.PN_ITS ---
Subjective Subjective: No acute events. Patient states she is feeling a lot better. Seen with family at bedside. Denies any further nausea, vomiting. Tolerating diet well. Still having occasional episodes of diarrhea. Able to get up and walk around by herself. Has remained hemodynamically stable and afebrile on r oom air. Vitals/I&O/Wt Last Vital Signs Temp 97.9 F 09/13/22 08:00 Pulse 89 09/13/22 08:00 Resp 15 09/13/22 08:00 BP 121/78 09/13/22 08:00 Pulse Ox 93 09/13/22 08:00 O2 Del Method 09/13/22 08:00 09/12/22 09/13/22 09/13/22 22:59 06:59 14:59 Intake Total 912.5 / 2152.5 2480 / 4632.5 120 / 120 Output Total 600 / 600 1200 / 1800 Balance 312.5 / 1552.5 1280 / 2832.5 120 / 120 Weight last 48 hrs Weight 94.347 kg Physical Exam Narrative: General: No acute distress, AO x3, HEENT: PERRLA, pupils bilaterally equal and reactive Chest: Normal vesicular breath sounds, no added sounds, equal good air entry bilaterally CVS: S1-S2 regular, no murmurs, no tachycardia, no gallops, no rubs Abdomen: Soft, mild generalized tenderness, distended, no organomegaly, bowel sounds present but sluggish Neuro: No focal deficits, no facial deformity, AO x3, power 5/5 in all limbs Urinary Catheter Management: Borden: Cath Placed During This Visit: yes Reason for Continuing Indwelling Catheter: Other Urinary Catheter Date of Insertion: 09/11/22 Urinary Catheter Time of Insertion: 13:15 Data 09/13/22 05:18 09/13/22 05:18 Micro: Microbiology 09/12/22 21:41 Stool Lactoferrin - Final Stool Enteric Pathogens (PCR) - Final Parasite Antigen Panel - Final C.difficile Toxin B Gene (PCR) - Final Occult Blood (FIT) - Final A&P Assessment and plan (1) Sepsis: Ruled in. Patient admitted with leukocytosis, elevated lactate with target organ dysfunction of acute kidney injury with the possibility of gastroenteritis. Keep mean artery pressure 65, saturation over 90%. Follow-up blood culture, urine culture. Pro-Paco elevated. Urine Legionella and bacterial antigen negative, MRSA negative. (2) Diarrhea: Appreciate CT abdomen pelvis results. Lactate negative which ruled out bowel ischemia. Stool studies negative for C. difficile. Advance to full liquid diet. Continue with IV hydration. (3) Acute kidney injury: Most likely in setting of dehydration along with chronic use of ibuprofen at home. Patient is also on lisinopril and hydrochlorothiazide. Medical reconciliation done for nephrotoxic drugs. CT abdomen pelvis negative for hydronephrosis or obstructive nephropathy. Renal functions improving. Appreciate urine lites. CPK elevated. FeNa-1%. Prerenal. Monitor urine output strictly. Plan to DC Borden catheter next 24 hours. Repeat BMP in AM. Monitor electrolytes. (4) Rhabdomyolysis: Resolving. In setting of amphetamine abuse, dehydration and possible sepsis from gastroenteritis. Continue with IV fluids. Normal saline at 100 cc/h. Recheck CPK every morning. (5) Nausea and vomiting: Appreciate CT abdomen pelvis results. Most likely in setting of gastroenteritis versus secondary to acute kidney injury with uremia. Protonix 40 mg IV daily, Zofran as needed. Continue with IV fluids. (6) Hyponatremia: Resolving. Fluid as above. Appreciate TSH, lipid panel results. Repeat BMP in evening. Depending on the result of the urine lites and repeat BMP we will plan for salt tablets. (7) High anion gap metabolic acidosis: Resolved. Most likely in setting of VICTOR MANUEL and lactic acidosis. Monitor. (8) Elevated LFTs: Resolving. Most likely in in setting of rhabdomyolysis and amphetamine abuse with dehydration Hepatitis panel negative. Monitor daily (9) Lactic acid acidosis: (10) Malaise: (11) Amphetamine abuse: Plan Chronic back pain: Appreciate CT lumbar and thoracic spine. Patient will need to follow-up with Dr. Cronin from orthopedic surgery as an outpatient for further evaluation and management. Tramadol as needed for pain. We will try to avoid NSAIDs. Hypertension: Goal blood pressure less than 140/90 mmHg. Takes lisinopril and hydrochlorothiazide at home. Stopping both in view of VICTOR MANUEL. Hold off on antihypertensives for now. Full liquid diet. Protonix for PUD prophylaxis Heparin 5000 every 12 hourly for DVT prophylaxis Full code. Discharge planning: Plan to discharge back home with aggressive oral hydration on modified antihypertensives with advised to hold off on amphetamines and follow-up with orthopedics as an outpatient within next 24 hours patient remains hemodynamically stable. Attestations Medical Necessity Statement*: Requires further hospitalization for management of rhabdomyolysis in setting of amphetamine abuse leading to acute kidney injury with electrolyte abnormality, dehydration secondary to gastroenteritis Diagnoses Sepsis A41.9 Diarrhea R19.7 Acute kidney injury N17.9 Rhabdomyolysis M62.82 Nausea and vomiting R11.2 Hyponatremia E87.1 High anion gap metabolic acidosis E87.29 Elevated LFTs R79.89 Lactic acid acidosis E87.20 Malaise R53.81 Amphetamine abuse F15.10
--- NOTE | 2022-09-13 15:02 | PC.NURSE ---
patient had visit from spouse for several hours. Patient slept but not sedated. Patient up to take a shower right after lunch and very talkie.
[2022-09-13] MEDS: pantoprazole 40 mg SDV IVP (17:37)
[2022-09-14 04:00] VITALS: BP 156/87; PULSE 85; RESP 16; TEMP 36.8; O2SAT 96
[2022-09-14 05:41] LABS: Alanine Aminotransferase 86 U/L (0-33); Albumin Level 2.5 g/dL (3.5-5.2); Alkaline Phosphatase 74 U/L (35-105); Anion Gap 10.1 (5-19); Aspartate Amino Transferase 95 U/L (0-32); Blood Urea Nitrogen 20 mg/dL (6-20); Calcium 8.1 mg/dL (8.5-10.5); Carbon Dioxide 24 mmol/L (22-29); Chloride 105 mmol/L (98-107); Globulin 3.1 g/dL (1.3-4.6); Glomerular Filtration Rate 46.3 mL/min (90-130); Glucose 87 mg/dL (65-115); Osmolality Calculated 284 mOsm/kg (285-295); Potassium 3.1 mmol/L (3.5-5.1); Sodium 136 mmol/L (136-145); Total Bilirubin 0.3 mg/dL (0.15-1.2); Total Protein 5.6 g/dL (6.6-8.7)
[2022-09-14 06:07] LABS: Creatinine Clr Calc Pharmacy 56.4047
[2022-09-14 06:10] LABS: Creatine Phosphokinase 833 U/L (26-192)
[2022-09-14] MEDS: sodium chloride 0.9% 1,000 ML 100 ML IV (06:17)
[2022-09-14 06:43] VITALS: PULSE 92
[2022-09-14 08:00] VITALS: BP 142/87; PULSE 88; RESP 18; TEMP 36.6; O2SAT 93
--- NOTE | 2022-09-14 08:43 | PC.NURSE ---
Patient has had three bouts of loose stool since yesterday afternoon. Patient has refused Milk of Mag.
[2022-09-14] MEDS: TRAMadol 50 mg Tablet PO (08:47)
[2022-09-14] MEDS: lidocaine 5% Patch 1 PATCH TOPICAL (08:48)
[2022-09-14] MEDS: fluoxetine 20 mg Capsule PO (08:48)
[2022-09-14] MEDS: heparin 5,000 unit/mL INJ 1 mL 5000 UNIT SUBCUT (08:48)
[2022-09-14] MEDS: duloxetine 30 mg Capsule PO (08:48)
[2022-09-14] MEDS: gabapentin 100 mg Capsule PO (08:48)
[2022-09-14] MEDS: sennosides-docusate Tablet 1 TAB PO (08:48)
--- NOTE | 2022-09-14 09:38 | P.DS_ITS ---
Discharge Providers Date of Admission: 09/10/22 14:50 Date of Discharge: September 14, 2022 Attending Provider at Admission: Kael Mckoy MD Attending Provider at Discharge: Kael Mckoy MD Primary Care Provider: SOPHIA Cruz Diagnoses at Discharge Discharge Diagnosis (1) Sepsis: Status: Acute (2) Diarrhea: Status: Acute (3) Acute kidney injury: Status: Acute (4) Rhabdomyolysis: Status: Acute (5) Nausea and vomiting: Status: Acute (6) Hyponatremia: Status: Acute (7) High anion gap metabolic acidosis: Status: Acute (8) Elevated LFTs: Status: Acute (9) Lactic acid acidosis: Status: Acute (10) Malaise: Status: Acute (11) Amphetamine abuse: Status: Acute Reason for Visit Reason for Visit: ABD PAIN Hospital Course Hospital Course Saranya Grewal is a 57 year old female with past medical history of alcohol abuse, quit around 7 years ago, hypertension who presents to the ER today because of left abdominal pain which started at around 2 AM last night.? As per patient she has been having multiple episodes of violent nonbloody, bilious, not foul-smelling food particle containing vomiting was started yesterday afternoon after she worked in her yard for 3 to 4 hours.? Pain started after vomiting.? Pain increases on movement, not associated with vomiting.? Denies any diarrhea, constipation, sick contact, runny nose, cough, recent travels.? States she used to drink alcohol around 6-7 years ago and has not drank since then. Blood work in the ER showed a white count 21,000, hemoglobin 13.5, chemistry 1 showing a sodium of 125, potassium of 3.4, chloride of 84,creatitine of 3.1 with BUN of 43, lactate of 4.7, AST/ALT of 237/65.? Repeat BMP showing a sodium of 133, potassium of 3.9, chloride of 95, BUN of 43 with creatinine of 2.9 with a repeat lactate of 2.3, AST/ALT of 203/63 with a normal bilirubin, UA showing 3+ blood, negative for nitrite, leuk esterase. Patient was admitted further evaluation and management of sepsis secondary to gastroenteritis, severe rhabdomyolysis, acute kidney injury with electrolyte abnormalities. She was started on IV fluids. Her renal functions gradually improved but she continued to have generalized malaise. She was also found to be in severe rhabdomyolysis and urine drug screen was positive for amphetamines. It is believed patient's symptoms of acute kidney injury are likely in setting of dehydration getting precipitated by diarrhea, amphetamine abuse leading to r habdomyolysis. CT abdomen pelvis was repeated because of worsening distention and diarrhea and was concerning for significant ileus without small bowel obstruction. Bowel ischemia was ruled out with a negative lactate. Stool studies remain negative. She continued to have severe back pain for which CT lumbar and thoracic spine were done which is concerning for significant stenosis. Gradually with IV fluids for rhabdomyolysis and acute kidney injury resolved. During hospitalization at first she was found to be hypertensive hence her antihypertensives were adjusted. She has been discharged in hemodynamically stable condition back home with advised to consume at least 2 L of liquid daily, repeat BMP and CPK with primary care provider in 1 week, abstinence from amphetamines and stopping NSAIDs and to follow-up with Dr. Cronin for further evaluation and management of lumbar stenosis Physical Exam Narrative: General: No acute distress, AO x3, HEENT: PERRLA, pupils bilaterally equal and reactive Chest: Normal vesicular breath sounds, no added sounds, equal good air entry bilaterally CVS: S1-S2 regular, no murmurs, no tachycardia, no gallops, no rubs Abdomen: Soft, mild generalized tenderness, distended, no organomegaly, bowel sounds present but sluggish Neuro: No focal deficits, no facial deformity, AO x3, power 5/5 in all limbs Urinary Catheter Management: Borden: Cath Placed During This Visit: yes Reason for Continuing Indwelling Catheter: Other Urinary Catheter Date of Insertion: 09/11/22 Urinary Catheter Time of Insertion: 13:15 Discharge Data Studies Completed and Pending Completed Studies During Hospitalization Category Date Time Status CT abdomen pelvis w con* [id number] Urgent Cat Scan 09/10/22 12:[address] abdomen pelvis wo con [id number] Routine Cat Scan 09/12/22 13:[address] lumbar spine wo con* [id number] Routine Cat Scan 09/12/22 10:[address] thoracic spin wo con* [id number] Routine Cat Scan 09/12/22 10:45 Completed XR abdomen 1V* [id number] Routine Exams 09/12/22 10:42 Completed CV. echo complete* [id number] Routine Ultrasound 09/11/22 06:00 Completed Pending at discharge Category Date Time Status Blood Culture Stat Lab 09/10/22 14:11 Results CPK [Creatine Phosphokinase] AM LABS Lab 09/15/22 04:00 Ordered Radiology Impressions Abdomen X-Ray 09/12/22 10:42 IMPRESSION: Somewhat dramatic change in the bowel gas pattern compared to the CT scan of 09/10/2022. Since there appears to be distention of colon and small bowel and no prior evidence of small bowel obstruction on the previous CT scan, likely this is a profound ileus. The small bowel is significantly distended. Lumbar Spine CT 09/12/22 10:45 IMPRESSION: 1. Grade 2 spondylolisthesis of L5 resulting in severe central, bilateral subarticular recess and foraminal stenosis at L5-S1. There is significant encroachment and deformity on the L5 and S1 nerve roots bilaterally. 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 Very similar to the prior study from 2007. 2. Mild narrowing of the central canal and foramina at L4-5. Thoracic Spine CT 09/12/22 10:45 IMPRESSION: 1. Age-indeterminate nondisplaced fracture involving the superior LEFT articular facet of T11. 2. No significant central stenosis. 3. Increased amount of air throughout the GI tract suggesting ileus. 4. Bilateral lower lobe areas of atelectasis at the lung bases, LEFT greater than RIGHT. Abdomen/Pelvis CT 09/12/22 13:59 IMPRESSION: 1. Interval development of segmental colitis involving the descending and sigmoid colon. Consider C diff colitis or ischemic colitis as possible etiologies. 2. Mild-moderate gaseous distention involving majority of the GI tract likely secondary to generalized ileus. 3. Increased intraluminal fluid within the large bowel often seen secondary to various causes of diarrhea. 4. Mild-moderate amount of pelvic ascites presumed secondary to the developing colitis. 5. Interval development of bibasilar subsegmental atelectasis. 6. Additional chronic findings as above. Echocardiogram: CONCLUSIONS ?Normal left ventricular size, systolic function and wall ?thickness, with no regional wall motion abnormalities.? Normal ?left ventricular wall thickness. ?Structurally normal tricuspid valve without significant stenosis ?or regurgitation.? Pulmonary artery systolic pressure elevated ?46 mm Hg. ?Ortiz Muhammad MD ?(Electronically Signed) ?Final Date:? ? ? 11 September 2022 ? 17:52 Microbiology 09/12/22 21:41 Stool Stool Lactoferrin - Final 09/12/22 21:41 Stool Enteric Pathogens (PCR) - Final 09/12/22 21:41 Stool Parasite Antigen Panel - Final 09/12/22 21:41 Stool C.difficile Toxin B Gene (PCR) - Final 09/12/22 21:41 Stool Occult Blood (FIT) - Final 09/10/22 14:00 Urine,Clean Catch Urine Culture - Final 09/10/22 14:00 Urine Kidney Bacterial Antigens - Final 09/10/22 14:00 Unknown Source Legionella Urinary Antigen - Final 09/10/22 14:19 Blood Blood Culture - Preliminary NEGATIVE TO DATE 09/10/22 14:11 Blood Blood Culture - Preliminary NEGATIVE TO DATE 09/10/22 21:00 Nose MRSA Culture - Final Laboratory Results WBC 7.6 10^3/uL (4.0-10.0) 09/13/22 05:18 RBC 3.53 10^6/uL (4.1-5.3) L 09/13/22 05:18 Hgb 10.6 g/dL (11.5-15.3) L 09/13/22 05:18 Hct 32.8 % (37.0-47.0) L 09/13/22 05:18 MCV 92.9 fl (81-99) 09/13/22 05:18 MCH 30.0 pg (28.0-34.0) 09/13/22 05:18 MCHC 32.3 g/dL (30.0-36.0) 09/13/22 05:18 RDW 13.8 % (12.1-15.1) 09/13/22 05:18 Plt Count 238 10^3/cmm (130-400) 09/13/22 05:18 MPV 12.1 fL (7.4-10.4) H 09/13/22 05:18 Neut % (Auto) 83.6 % 09/13/22 05:18 Lymph % (Auto) 9.2 % 09/13/22 05:18 [place] % (Auto) 5.8 % 09/13/22 05:18 Eos % (Auto) 0.8 % 09/13/22 05:18 Baso % (Auto) 0.3 % 09/13/22 05:18 Neut # (Auto) 6.40 10^3/uL (1.8-7.7) 09/13/22 05:18 Lymph # (Auto) 0.7 10^3/uL (0.8-4.8) L 09/13/22 05:18 [place] # (Auto) 0.4 10^3/uL (0.2-0.9) 09/13/22 05:18 Eos # (Auto) 0.1 10^3/uL (0.0-0.8) 09/13/22 05:18 Baso # (Auto) 0.0 10^3/uL (0.0-0.1) 09/13/22 05:18 Nucleated RBC % (auto) 0 % 09/13/22 05:18 Nucleated RBCs # 0.0 /100WBC 09/13/22 05:18 Sodium 136 mmol/L (136-145) 09/14/22 04:26 Potassium 3.1 mmol/L (3.5-5.1) L 09/14/22 04:26 Chloride 105 mmol/L (98-107) 09/14/22 04:26 Carbon Dioxide 24 mmol/L (22-29) 09/14/22 04:26 Anion Gap 10.1 (5-19) 09/14/22 04:26 BUN 20 mg/dL (6-20) 09/14/22 04:26 Creatinine 1.2 mg/dL (0.5-0.9) H 09/14/22 04:26 GFR Calculation 46.3 mL/min (90-130) L 09/14/22 04:26 Glucose 87 mg/dL (65-115) 09/14/22 04:26 Estimat Average Glucose 103 09/11/22 04:05 Hemoglobin A1c 5.2 % (4.0-6.0) 09/11/22 04:05 Calculated Osmolality 284 mOsm/kg (285-295) L 09/14/22 04:26 Lactic Acid 1.0 mmol/L (0.5-2.2) 09/12/22 17:06 Lactic Acid (Sepsis) 2.3 mmol/L (0.5-2.2) H 09/10/22 16:16 Calcium 8.1 mg/dL (8.5-10.5) L 09/14/22 04:26 Phosphorus 5.5 mg/dL (2.5-4.5) H 09/11/22 04:05 Magnesium 2.0 mg/dL (1.7-2.3) 09/11/22 04:05 Total Bilirubin 0.3 mg/dL (0.15-1.2) 09/14/22 04:26 AST 95 U/L (0-32) H 09/14/22 04:26 ALT 86 U/L (0-33) H 09/14/22 04:26 Alkaline Phosphatase 74 U/L (35-105) 09/14/22 04:26 Creatine Kinase 833 U/L (26-192) H* 09/14/22 04:26 Total Protein 5.6 g/dL (6.6-8.7) L 09/14/22 04:26 Albumin 2.5 g/dL (3.5-5.2) L 09/14/22 04:26 Globulin 3.1 g/dL (1.3-4.6) 09/14/22 04:26 Triglycerides 154 mg/dL (0-150) H 09/11/22 04:05 Cholesterol 190 mg/dL (0-200) 09/11/22 04:05 LDL Cholesterol, Calc 118 mg/dL (50-129) 09/11/22 04:05 HDL Cholesterol 41 mg/dL (60-100) L 09/11/22 04:05 LDL/HDL Ratio 2.88 RATIO (0.00-3.22) 09/11/22 04:05 Cholesterol/HDL Ratio 4.63 mg/dL (0.0-4.40) H 09/11/22 04:05 Lipase 22 U/L (13-60) 09/10/22 12:30 Vitamin B12 510 pg/mL (232-1245) 09/10/22 14:30 Folate > 20.0 ng/mL (4.8-37.3) 09/10/22 14:30 Procalcitonin 4.65 ng/mL (0-0.5) H 09/10/22 14:30 TSH 4.69 uIU/mL (0.27-4.20) H 09/10/22 14:30 Free T4 0.75 ng/dL (0.82-1.77) L 09/10/22 14:30 Free T3 2.2 PG/ML (2.0-4.4) 09/10/22 14:30 Urine Color Dark yellow (Yellow) 09/10/22 14:00 Urine Appearance Sl hazy (CLEAR) A 09/10/22 14:00 Urine pH 6 (5-7) 09/10/22 14:00 Ur Specific [place] 1.010 (1.005-1.030) 09/10/22 14:00 Urine Protein 2+ (Negative) H 09/10/22 14:00 Urine Glucose (UA) Norm (Normal) 09/10/22 14:00 Urine Ketones Negative (Negative) 09/10/22 14:00 Urine Blood 3+ (Negative) H 09/10/22 14:00 Urine Nitrate Negative (Negative) 09/10/22 14:00 Urine Bilirubin Neg (Negative) 09/10/22 14:00 Urine Urobilinogen Norm mg/dL (Negative) 09/10/22 14:00 Ur Leukocyte Esterase Negative (Negative) 09/10/22 14:00 Urine RBC 10-15 /hpf (0-2) H 09/10/22 14:00 Urine WBC 5-10 /hpf (0-5) H 09/10/22 14:00 Ur Eosinophil Smear 0 (0-0) 09/11/22 13:07 Ur Squamous Epith Cells 5-10 /hpf (0-5) H 09/10/22 14:00 Amorphous Sediment Not Reportable 09/10/22 14:00 Urine Bacteria 1+ /hpf (NONE) H 09/10/22 14:00 Urine Eosinophils No eosinophils seen 09/11/22 13:07 Ur Random Sodium 20 mmol/L 09/11/22 13:07 Ur Random Potassium 44 mmol/L 09/11/22 13:07 Ur Random Chloride 23 mmol/L 09/11/22 13:07 Urine Creatinine 42 mg/dL (28-217) 09/11/22 13:07 Nasal Influ A H1 2008 PCR Not detected (NOT DETECT) 09/11/22 14:41 Urine Opiates Screen Positive ng/mL (Negative) H 09/11/22 13:07 Ur Barbiturates Screen Negative ng/mL (Negative) 09/11/22 13:07 Ur Phencyclidine Scrn Negative ng/mL (Negative) 09/11/22 13:07 Ur Amphetamines Screen Positive ng/mL (Negative) H 09/11/22 13:07 U Benzodiazepines Scrn Negative ng/mL (Negative) 09/11/22 13:07 Urine Cocaine Screen Negative ng/mL (Negative) 09/11/22 13:07 U Marijuana (THC) Screen Negative ng/mL (Negative) 09/11/22 13:07 Ethyl Alcohol < 10 mg/dL (0-10) 09/10/22 14:30 Adenovirus (PCR) Not detected (NOT DETECT) 09/11/22 14:41 C. pneumoniae DNA (PCR) Not detected (NOT DETECT) 09/11/22 14:41 Coronavirus 229E (PCR) Not detected (NOT DETECT) 09/11/22 14:41 Hepatitis A IgM Ab Non-reactive (Nonreactive) 09/10/22 14:30 Hep Bs Antigen Non-reactive (Nonreactive) 09/10/22 14:30 Hep Bs Antibody 49.0 (11.5-1000) 09/10/22 14:30 Hep B Core Total Ab Non-reactive (Nonreactive) 09/10/22 14:30 Hepatitis C Antibody Non-reactive (Nonreactive) 09/10/22 14:30 Human Metapneumovir PCR Not detected (NOT DETECT) 09/11/22 14:41 Influenza A (H1) PCR Not detected (NOT DETECT) 09/11/22 14:41 Influenza A (H3) PCR Not detected (NOT DETECT) 09/11/22 14:41 Influenza Type A (PCR) Not detected (NOT DETECT) 09/11/22 14:41 Influenza Type B (PCR) Not detected (NOT DETECT) 09/11/22 14:41 M. pneumoniae (PCR) Not detected (NOT DETECT) 09/11/22 14:41 Parainfluenza 1 (PCR) Not detected (NOT DETECT) 09/11/22 14:41 Parainfluenza 2 (PCR) Not detected (NOT DETECT) 09/11/22 14:41 Parainfluenza 3 (PCR) Not detected (NOT DETECT) 09/11/22 14:41 Parainfluenza 4 (PCR) Not detected (NOT DETECT) 09/11/22 14:41 RSV Type A (PCR) Not detected (NOT DETECT) 09/11/22 14:41 RSV Type B (PCR) Not detected (NOT DETECT) 09/11/22 14:41 Entero/Rhino (PCR) Not detected (NOT DETECT) 09/11/22 14:41 SARS-CoV-2 (PCR) Not detected (NOT DETECT) 09/11/22 14:41 Vitals Last Vital Signs Temp 97.8 F 09/14/22 08:00 Pulse 88 09/14/22 08:00 Resp 18 09/14/22 08:00 BP 142/87 09/14/22 08:00 Pulse Ox 93 09/14/22 08:00 O2 Del Method 09/14/22 08:00 Discharge Plan Discharge Patient Disposition: Home Condition: Stable Prescriptions: New amlodipine 10 mg tablet 10 mg PO DAILY Qty: 30 0RF Continued loratadine [Claritin] 10 mg Tablet 10 mg PO DAILY multivitamin Tablet 1 tab PO DAILY gabapentin 100 mg capsule 100 mg PO TID fluoxetine 20 mg capsule 20 mg PO DAILY duloxetine 30 mg capsule,delayed release(DR/EC) 30 mg PO DAILY Discontinued ibuprofen [Advil Liqui-Gel] 200 mg Capsule 200 mg PO BEDTIME lisinopril-hydrochlorothiazide 10-12.5 mg tablet 1 tab PO DAILY Discharge Orders: Discharge Order (Routine); Ordered 09/14/22 Ordered By: Kael Mckoy Referrals: Zane Cronin DO [Physician] - 10/13/22 11:00 am Park Frances FNP [Primary Care Provider] - 09/20/22 2:00 pm Charles Cuevas MD [Physician] - 1 week Discharge Diet: Cardiac Discharge Activity: Resume usual activity and Increase activity as tolerated Patient Instructions: Amlodipine (By mouth), Rhabdomyolysis (GEN), Opioid Safety Activity Restrictions/Additional Instructions: Please follow-up with your primary care provider within next 1 week for repeat BMP. Follow-up with Dr. Cronin from orthopedic surgery for further evaluation and management of lumbar stenosis Please try to abstain from amphetamine use. Please try to consume up to 2 L of liquid daily. Please try to avoid using Advil or any other kind of NSAIDs going forward. You should follow-up with pain management for further help with pain medications. Discharge Attestations Time Spent in Discharge Care*: greater than 30 min Specific Discharge Activities: educating patient, educating and/or supporting family/caregiver, discussing with pcp/other providers, discussing with case finisher/social workers/dc planners, documenting/other paperwork and evaluating patient/reviewing data Status at Discharge: Cognitive status at discharge: cognitively intact , Behavioral status at discharge: cooperative , Functional status at discharge: independent ambulation , Overall status at discharge: patient is back to baseline Quality Metrics Clinical Quality Measures [ No reported AMI, CVA or VTE this stay] Coding Level of Care Code 75830 Total time (in minutes) for Discharge: 50 Diagnoses Sepsis A41.9 Diarrhea R19.7 Acute kidney injury N17.9 Rhabdomyolysis M62.82 Nausea and vomiting R11.2 Hyponatremia E87.1 High anion gap metabolic acidosis E87.29 Elevated LFTs R79.89 Lactic acid acidosis E87.20 Malaise R53.81 Amphetamine abuse F15.10
--- NOTE | 2022-09-14 11:20 | PC.NURSE ---
Pulled catheter. Patient tolerated well.
[2022-09-14 12:00] VITALS: BP 174/97; PULSE 90; RESP 18; TEMP 36.4; O2SAT 97
[2022-09-14 12:40] VITALS: BP 174/97; PULSE 90; RESP 18; TEMP 36.4; O2SAT 97
--- NOTE | 2022-09-14 12:43 | PC.NURSE ---
Discussed discharge follow up appointments, new medications and stopped medications. All answers answered for patient. Patient verbalized understanding.
--- NOTE | 2022-09-20 01:09 | PC.NURSE ---
Critical CK reported to Dr. Maravilla on 09/14/22 at 0615 via telephone. No new orders received. This was reported to be an expected finding.
== END 2022-09-14 12:40 | disposition home or self-care (01) | DRG 872 ==
LOC: ER 15:02 → MEDSURG 17:20
PROVIDERS: Internal Medicine; Admitting Provider Student in an Organized Health Care Education/Training Program; Emergency Provider Physician Assistant; PCP Nurse Practitioner Family; Visit Provider Student in an Organized Health Care Education/Training Program
DX: A41.9 Sepsis, unspecified organism (principal); M62.82 Rhabdomyolysis; N17.9 Acute kidney failure, unspecified; E87.1 Hypo-osmolality and hyponatremia; E87.20 Acidosis, unspecified; K52.9 Noninfective gastroenteritis and colitis, unspecified; F10.11 Alcohol abuse, in remission; I10 Essential (primary) hypertension; F15.10 Other stimulant abuse, uncomplicated; E86.0 Dehydration; F41.9 Anxiety disorder, unspecified; E03.9 Hypothyroidism, unspecified; M54.16 Radiculopathy, lumbar region; E87.6 Hypokalemia; E87.5 Hyperkalemia; G89.29 Other chronic pain
CPT/HCPCS: 36415; 51701; 51702; 72128; 72131; 74018; 74176; 74177; 80048; 80053; 80061; 80306; 80307; 81001; 82274; 82436; 82550; 82570; 82607; 82746; 83036; 83605; 83630; 83690; 83735; 84100; 84133; 84145; 84300; 84439; 84443; 84481; 85025; 85999; 86403; 86705; 86706; 86709; 86803; 87040; 87086; 87340; 87449; 87486; 87493; 87506; 87581; 87633; 87641; 93306; 94664; 96372; 96374; 96375; 99285; C9113; J0610; J1644; J1815; J2270; J2405; J2543; J7030; Q9967

== ENCOUNTER → 2022-10-20 10:45 | Outpatient (BNVA) | payer MEDICAID, SELFPAY | PROVIDERS: PCP Nurse Practitioner Family; Visit Provider Orthopaedic Surgery | DX: M51.16 Intervertebral disc disorders with radiculopathy, lumbar region (principal); M43.16 Spondylolisthesis, lumbar region | CPT/HCPCS: 72070; 72110 ==

== ENCOUNTER 2022-12-08 11:42 | Outpatient (CLI) | payer MEDICAID, SELFPAY ==
--- NOTE | 2022-12-08 11:45 | MR_ITS ---
WS: [id number] MRI LUMBAR SPINE NONCONTRAST TECHNIQUE: Sagittal T1, T2 and STIR imaging. Axial T1 and T2 imaging. CLINICAL INFORMATION: back pain COMPARISON: CT September 12, 2022 FINDINGS: Grade 2 anterolisthesis L5 on S1 with chronic spondylolysis. Chronic bilateral pars defects with scle rosis L5-S1. Grade 2 anterolisthesis measures 18 mm unchanged. L1-L2: Normal. L2-L3: Mild facet arthropathy. Spinal canal and foramen are patent. L3-L4: Minimal annular bulging. Mild facet arthropathy. Spinal canal and foramen are patent. L4-L5: Mild annular bulging. Slight effacement of ventral thecal sac. Spinal canal and foramen are pa tent. Mild facet arthropathy. L5-S1: Grade 2 anterolisthesis L5 on S1 with spondylolysis. Spinal canal is patent. Moderate to sever e bilateral bony foraminal narrowing. Moderate facet arthropathy. Bilateral renal cysts. Mild central canal stenosis in the cervical spine employment programs analyst imaging at C3-C5. Lobu lated uterus with low signal masslike lesion in the fundus likely fibroid measuring 3.6 x 3.2 CM. Visualized pelvic bony structures: Normal. Paravertebral soft tissues: Normal. MR/MR lumbar spine wo con* [id number] IMPRESSION: 1. Grade 2 anterolisthesis L5 on S1 with chronic spondylolysis. Moderate to se valente bilateral L5-S1 bony foraminal narrowing. 2. No significant central canal stenosis. 3. Minimal annular bulging L3-L4 and L4-L5. 4. Lobulated incompletely evaluated suspected fibroid in the uterine fundus. T his can be further evaluated with ultrasound.
== END 2022-12-08 11:43 | disposition home or self-care (01) ==
LOC: RAD 11:44
PROVIDERS: PCP Nurse Practitioner Family; Visit Provider Orthopaedic Surgery
DX: M47.896 Other spondylosis, lumbar region (principal); M51.26 Other intervertebral disc displacement, lumbar region; M47.897 Other spondylosis, lumbosacral region
CPT/HCPCS: 72148

== ENCOUNTER 2023-01-02 10:37 | Outpatient (CLI) | payer MEDICAID, SELFPAY ==
--- NOTE | 2023-01-02 11:00 | US_ITS ---
WS: [id number] US transvaginal [id number] HISTORY: D25.9 - Leiomyoma of uterus, unspecified COMPARISON: MRI lumbar spine 12/08/2022 Uterus: 8.9 cm x 4.7 cm x 4.3 cm. Normal size anteverted uterus. There are at least 2 intramural fibroids identified. The largest towar ds the fundus measures 2.8 x 3.9 x 2.6 cm. There is a smaller anterior mid uterine fibroid measuring 1.8 x 1.3 x 1.5 cm. Endometrium: 0.5 cm. Negative. Right ovary: 2.7 cm x 1.6 cm x 2.0 cm. Normal size and vascularity, no cystic or solid masses. Left ovary: Not visualized. No adnexal mass. No free fluid in the cul-de-sac. US/US transvaginal [id number] IMPRESSION: 1. Fibroid uterus. 2 fibroids are identified. The largest at the fundus measur es 2.8 x 3.9 x 2.6 cm. 2. Nonvisualization LEFT ovary.
== END 2023-01-02 10:38 | disposition home or self-care (01) ==
LOC: RAD 10:41
PROVIDERS: PCP Nurse Practitioner Family; Visit Provider Obstetrics & Gynecology
DX: D25.9 Leiomyoma of uterus, unspecified (principal)
CPT/HCPCS: 76830

== ENCOUNTER → 2023-01-30 16:00 | Outpatient (BNVA) | payer MEDICAID, SELFPAY | PROVIDERS: PCP Nurse Practitioner Family; Visit Provider Obstetrics & Gynecology | DX: Z12.4 Encounter for screening for malignant neoplasm of cervix (principal) | CPT/HCPCS: 87624 ==

== ENCOUNTER 2023-02-15 15:43 | Outpatient (CLI) | payer MEDICAID, SELFPAY ==
[2023-02-15 16:43] LABS: Basophils % 0.6 %; Eosinophils # 0.3 10^3/uL (0.0-0.8); Eosinophils % 4.1 %; Hematocrit 33.9 % (36-47); Lymphocytes # 1.9 10^3/uL (0.8-4.8); Lymphocytes % 27.2 %; Mean Corpuscular HGB Conc 30.7 g/dL (30-55); Mean Corpuscular Hemoglobin 28.7 pg (27-33); Mean Corpuscular Volume 93.4 fl (85-98); Mean Platelet Volume 10.9 fL (7.4-10.4); Monocytes # 0.5 10^3/uL (0.2-0.9); Monocytes % 7.1 %; Neutrophils # 4.12 10^3/uL (1.8-7.7); Neutrophils % 60.7 %; Nucleated Red Blood Cells % 0 %; Platelet Count 485 10^3/cmm (157-399); Red Blood Count 3.63 10^6/uL (3.85-5.65); Red Cell Distribution Width 15.6 % (12.1-15.1); White Blood Count 6.79 10^3/uL (3.29-11.43)
[2023-02-15 17:48] LABS: Alanine Aminotransferase 13 U/L (0-33); Albumin Level 3.1 g/dL (3.5-5.2); Alkaline Phosphatase 94 U/L (35-105); Anion Gap 13.5 (5-19); Aspartate Amino Transferase 15 U/L (0-32); Blood Urea Nitrogen 18 mg/dL (6-20); Calcium 8.3 mg/dL (8.5-10.5); Carbon Dioxide 28 mmol/L (22-29); Chloride 99 mmol/L (98-107); Globulin 3.2 g/dL (1.3-4.6); Glomerular Filtration Rate 73.9 mL/min (90-130); Glucose 108 mg/dL (65-115); Osmolality Calculated 286 mOsm/kg (285-295); Potassium 3.5 mmol/L (3.5-5.1); Sodium 137 mmol/L (136-145); Total Bilirubin 0.2 mg/dL (0.15-1.2); Total Protein 6.3 g/dL (6.6-8.7)
== END 2023-02-15 15:44 | disposition home or self-care (01) ==
PROVIDERS: PCP Nurse Practitioner Family; Visit Provider Orthopaedic Surgery
DX: M43.16 Spondylolisthesis, lumbar region (principal)
CPT/HCPCS: 36415; 80053; 85025

== ENCOUNTER → 2023-02-16 14:51 | Outpatient (BNVA) | payer MEDICAID, SELFPAY | PROVIDERS: PCP Nurse Practitioner Family; Visit Provider Family Medicine | DX: Z01.818 Encounter for other preprocedural examination (principal) | CPT/HCPCS: 81000 ==

== ENCOUNTER 2023-02-20 12:43 | Day surgery (SDC) | payer MEDICAID, SELFPAY ==
[2023-02-20 12:50] VITALS: BP 148/110; PULSE 138; RESP 18; TEMP 36.3; O2SAT 94
--- NOTE | 2023-02-20 13:06 | ECG_ITS ---
[facility] Test Date: 2023-02-20 Pat Name: Saranya Grewal Department: Room: Gender: Female Certified Medical Aide: : 1965 Requested By: Zane Temple Order Number: [id number] Melissa MD: Mook Ramirez M.D. Measurements Intervals Metter Rate: 125 P: 21 MO: 128 QRS: 9 QRSD: 85 T: 39 QT: 297 QTc: 429 Interpretive Statements SINUS TACHYCARDIA NONSPECIFIC T-WAVE ABNORMALITY ABNORMAL RHYTHM ECG Compared to ECG 07/08/2019 17:00:55 T-wave abnormality now present Left ventricular hypertrophy no longer present ST (T wave) deviation no longer present Electronically Signed On 02-20-2023 16:05:28 CDT by Mook Ramirez M.D. [id number]
[2023-02-20 13:41] LABS: Basophils # 0.1 10^3/uL (0.0-0.1); Basophils % 0.2 %; Hematocrit 42.4 % (36-47); Lymphocytes # 1.4 10^3/uL (0.8-4.8); Lymphocytes % 6.5 %; Mean Corpuscular HGB Conc 31.8 g/dL (30-55); Mean Corpuscular Hemoglobin 28.8 pg (27-33); Mean Corpuscular Volume 90.6 fl (85-98); Mean Platelet Volume 10.2 fL (7.4-10.4); Monocytes # 0.9 10^3/uL (0.2-0.9); Neutrophils # 19.11 10^3/uL (1.8-7.7); Neutrophils % 88.6 %; Nucleated Red Blood Cells % 0 %; Platelet Count 751 10^3/cmm (157-399); Red Blood Count 4.68 10^6/uL (3.85-5.65); Red Cell Distribution Width 15.9 % (12.1-15.1); White Blood Count 21.58 10^3/uL (3.29-11.43)
[2023-02-20 13:48] VITALS: RESP 18; O2SAT 94
[2023-02-20] MEDS: HYDROmorphone 1 mg/mL INJ 1 mL 0.5 MG IVP (13:48)
--- NOTE | 2023-02-20 13:49 | W.PM.OPSFHP ---
Same Day Surgery H&P Indication for Procedure/HPI DATE OF PROCEDURE: February 20, 2023 CHIEF COMPLAINT/INDICATIONFOR SURGICAL PROCEDURE: Back and leg pain PREOP DIAGNOSIS: Spondylolisthesis L4-5 degenerative disc disease with lumbar radiculopathy PLANNED PROCEDURE: Operation Date: 02/20/23 14:30 Proposed Procedures p Lumbopelvic Fixation/ L3 pelvis Fusion/ L3-L5(Not Applicable) - Zane Cronin, DO Medications/Allergies* Home Medications Medication Instructions Recorded Confirmed Type loratadine 10 mg tablet (Claritin) 10 mg PO DAILY 11/05/19 02/20/23 History duloxetine 30 mg capsule,delayed 30 mg PO DAILY 09/10/22 02/20/23 History release fluoxetine 20 mg capsule 20 mg PO DAILY 09/10/22 02/20/23 History gabapentin 100 mg capsule 100 mg PO TID 09/10/22 02/20/23 History multivitamin 1 tab PO DAILY 09/10/22 02/20/23 History Allergies/Adverse Reactions Allergy/AdvReac Type Severity Reaction Status Date / Time Latex gloves Allergy Mild Itchy and Uncoded 02/16/23 14:19 break out Current Medications: Generic Name Dose Route Start Last Admin Trade Name Freq PRN Reason Stop Dose Admin Hydromorphone HCl 0.5 mg 02/20/23 13:17 02/20/23 13:48 Hydromorphone 1 Mg/Ml Inj 1 Ml IVP 02/21/23 13:17 0.5 mg Q10M PRN Administration Pain level 7-10 PACU Phase I Pertinent History/Comorbid Conditions* Medical History (Updated 02/04/23 @ 21:56 by Ed Fraga MD) Amphetamine abuse Anxiety Arthritis Chronic cholecystitis History of cataract Hypertension Hypothalamic hypothyroidism Lactic acid acidosis Lumbar disc disease with radiculopathy Surgical History (Updated 09/10/22 @ 17:33 by Kael Mckoy MD) History of tubal ligation Social History Smoking and tobacco status: never smoked Second hand smoke exposure: Yes Alcohol intake: never Substance/Drug Use: never Pertinent Exam Findings alert and oriented x 3 Recommendations Surgery/Procedure today Coding Level of Care Code Acute Code for Chg Fwd Diagnoses
[2023-02-20 14:23] LABS: Alanine Aminotransferase 20 U/L (0-33); Albumin Level 4.1 g/dL (3.5-5.2); Alkaline Phosphatase 109 U/L (35-105); Anion Gap 26.1 (5-19); Aspartate Amino Transferase 33 U/L (0-32); Blood Urea Nitrogen 42 mg/dL (6-20); Calcium 10.6 mg/dL (8.5-10.5); Carbon Dioxide 22 mmol/L (22-29); Chloride 99 mmol/L (98-107); Globulin 4.4 g/dL (1.3-4.6); Glomerular Filtration Rate 11.9 mL/min (90-130); Glucose 204 mg/dL (65-115); Osmolality Calculated 310 mOsm/kg (285-295); Potassium 5.1 mmol/L (3.5-5.1); Sodium 142 mmol/L (136-145); Total Bilirubin 0.3 mg/dL (0.15-1.2); Total Protein 8.5 g/dL (6.6-8.7)
--- NOTE | 2023-02-20 14:52 | PC.NURSE ---
Pt tachycardiac and diaphoretic upon arrival. WBC elevated, ekg done and pt sustaining sinus tach in the 120's. Upon repeat of temp pt 99.3. Informed Dr Laboy and after consulting Dr. Cronin they decided to post pone surgery for a later date. I took pt to the ED to be evaluated, IV left in per her request and I delivered her personally to the ED.
--- NOTE | 2023-02-20 16:49 | P.ANESASSM_ITS ---
Pre-Anesthetic Assessment Height/Weight: Height 1.6 m Weight 81.647 kg Temp Pulse Resp BP Pulse Ox O2 Del Method 97.3 F L 138 H 18 148/110 94 Room Air 02/20/23 12:50 02/20/23 12:50 02/20/23 13:48 02/20/23 12:50 02/20/23 13:48 02/20/23 13:12 Preop Diagnosis: Spondylolisthesis L4-5 degenerative disc disease with lumbar radiculopathy Operation Date: 02/20/23 14:30 Proposed Procedures p Lumbopelvic Fixation/ L3 pelvis Fusion/ L3-L5(Not Applicable) - Zane Cronin, DO Familial anesthetic complications: none Was Beta Hugo taken within 24 hours: N/A Was Clonidine taken within 24 hours: N/A Last intake: Intake Last Liquid Date 02/19/23 Last Liquid Time 23:55 Last Solid Date 02/19/23 Last Solid Time 23:30 Social Tobacco and No alcohol meth use Exam alert, oriented x 3 and clear to auscultation bilaterally tachy Airway Submandibular: within normal limits Cervical ROM: within normal limits Mallampati: Class II Pulmonary Chronic Obstructive Pulmonary Disease Chronic [place]su[place] [facility] [place] Lower Back Pain and Osteoarthritis/DJD Neuropsych Anxiety and Depression Anesthetic Plan ASA status: 3 Anesthesia: General Other: Patient tachy and diaphoretic, WBC 21K on lab, case rescheduled. Patient to ED for eval. Medications/Allergies Home Medications Medication Instructions Recorded Confirmed Last Taken Type loratadine 10 mg tablet (Claritin) 10 mg PO DAILY 11/05/19 02/20/23 02/20/23 History duloxetine 30 mg capsule,delayed 30 mg PO DAILY 09/10/22 02/20/23 02/20/23 History release fluoxetine 20 mg capsule 20 mg PO DAILY 09/10/22 02/20/23 02/20/23 History gabapentin 100 mg capsule 100 mg PO TID 09/10/22 02/20/23 02/20/23 History multivitamin 1 tab PO DAILY 09/10/22 02/20/23 02/19/23 History amlodipine 10 mg tablet 10 mg PO DAILY #30 tabs 09/14/22 02/20/23 02/19/23 Rx tramadol 50 mg tablet 50 mg PO Q4H PRN pain #30 tabs 01/30/23 02/20/23 02/19/23 Rx E0748 Bone Growth Stimulator #1 ea 02/03/23 Unknown Rx Allergies Allergy/AdvReac Type Severity Reaction Status Date / Time Latex gloves Allergy Mild Itchy and Uncoded 02/16/23 14:19 break out Current Medications Generic Name Dose Route Start Last Admin Trade Name Roeq PRN Reason Stop Dose Admin Hydromorphone HCl 0.5 mg 02/20/23 13:17 02/20/23 13:48 Hydromorphone 1 Mg/Ml Inj 1 Ml IVP 02/21/23 13:17 0.5 mg Q10M PRN Administration Pain level 7-10 PACU Phase I [facility] Anesthesia Medical History Amphetamine abuse Anxiety Arthritis Chronic cholecystitis History of cataract Hypertension Hypothalamic hypothyroidism Lactic acid acidosis Lumbar disc disease with radiculopathy Surgical History History of tubal ligation Social History Smoking and tobacco status: never smoked Second hand smoke exposure: Yes Alcohol intake: never Substance/Drug Use: never Data Anesthesia 02/20/23 13:21 02/20/23 13:21 Short CBC 02/20/23 Range/Units 13:21 WBC 21.58 H (3.29-11.43) 10^3/uL Hgb 13.50 (11.27-16.99) g/dL Hct 42.4 (36-47) % MCV 90.6 (85-98) fl Plt Count 751 H (157-399) 10^3/cmm Neut % (Auto) 88.6 % Neut # (Auto) 19.11 H (1.8-7.7) 10^3/uL BMP 02/20/23 13:21 Sodium 142 Potassium 5.1 Chloride 99 Carbon Dioxide 22 BUN 42 H Creatinine 3.9 H Glucose 204 H Calcium 10.6 H Liver Function 02/20/23 Range/Units 13:21 Total Bilirubin 0.3 (0.15-1.2) mg/dL AST 33 H (0-32) U/L ALT 20 (0-33) U/L Alkaline Phosphatase 109 H (35-105) U/L Albumin 4.1 (3.5-5.2) g/dL Blood Bank 02/20/23 13:21 Blood Type O Positive Rho(D) Type Positive Antibody Screen Negative Cardiac Studies: Echocardiogram 09/11/22
== END 2023-02-20 14:54 | disposition home or self-care (01) ==
PROVIDERS: PCP Nurse Practitioner Family; Visit Provider Orthopaedic Surgery
DX: M43.16 Spondylolisthesis, lumbar region (principal); Z53.9 Procedure and treatment not carried out, unspecified reason; I10 Essential (primary) hypertension
CPT/HCPCS: 80053; 85025; 86850; 86900; 93005; J1170; J3010

== ENCOUNTER 2023-02-20 14:45 | Emergency (ER) | payer MEDICAID, SELFPAY ==
[2023-02-20 14:53] VITALS: BP 125/82; PULSE 111; RESP 18; TEMP 36.9; O2SAT 96; BMI 31.8
--- NOTE | 2023-02-20 17:10 | W.ED.RECABL ---
HPI - Recheck/Abnormal Lab/Rx General: Chief Complaint: Recheck/Abnormal Lab/Rx Stated Complaint: sent by outp surg/poss infection Time Seen by Provider: 02/20/23 17:08 History of Present Illness: Patient was scheduled to have a fusion of the lumbar today and while having presurgery labs in the outpatient surgery center it was noted that her white count was high and her creatinine was elevated. Patient denies any illnesses. Patient reports no nausea vomiting or diarrhea. Patient reports no fever. Patient appears nontoxic. Patient appears in no pain. Patient reports no chills or fever. Review of Systems General: Reports: 10 or more systems reviewed and unremarkable except in HPI and below Const: Denies: fever(s) Card: Denies: chest pain Resp: Denies: dyspnea, productive cough or non-productive cough GI: Denies: nausea, vomiting, diarrhea or constipation : Denies: difficulty voiding Musc: Denies: neck pain or back pain PFSH ED PFSH: Medical History Amphetamine abuse Anxiety Arthritis Chronic cholecystitis History of cataract Hypertension Hypothalamic hypothyroidism Lactic acid acidosis Lumbar disc disease with radiculopathy Surgical History History of tubal ligation Social History Smoking and tobacco status: never smoked Second hand smoke exposure: Yes Alcohol intake: never Substance/Drug Use: never Physical Exam Const: COMMON NORMALS: alert HENMT: COMMON NORMALS: normocephalic HEAD & SCALP: normocephalic Neck/C-Spine: COMMON NORMALS: full ROM Resp: COMMON NORMALS: normal respiratory effort AUSCULTATION: diminished lung sounds Cardio: COMMON NORMALS: regular rate and regular rhythm RATE: regular rate RHYTHM: regular rhythm GI: COMMON NORMALS: Soft to palpation and non-tender PALPATION: Yes Soft to palpation : COMMON NORMALS: Yes no CVA tenderness BLADDER/KIDNEY EXAM: Yes no CVA tenderness Back/Pelvis: COMMON NORMALS: no CVA tenderness and thoracic and lumbar spine normal to inspection Extremity: COMMON NORMALS: normal to inspection Neuro: SENSORIUM/ORIENTATION: Yes alert Skin: NARRATIVE SKIN EXAM: Multiple insect bites to the lower extremity. Patient reports chigger bites. Course ED course: 1744, I reviewed the record noting that patient had a similar event where her electrolytes were disturbed and her white count was high and patient was thought to have gastroenteritis but it was noted that patient had been using methamphetamines at the same time. I reviewed this with patient and discussed with her and she did admit to use of methamphetamines. I believe that patient has a induced dehydration VICTOR MANUEL from methamphetamines abuse. Patient will be given 2 L of IV fluids we will reevaluate her labs. Vital Signs: Vital signs: Vital Signs Temperature 98.4 F 02/20/23 14:53 Pulse Rate 103 H 02/20/23 19:23 Respiratory Rate 18 02/20/23 17:12 Blood Pressure 152/91 02/20/23 19:23 Pulse Oximetry 95 02/20/23 19:23 Oxygen Delivery Me thod Room Air 02/20/23 19:23 MDM - Recheck/Abnormal Lab/Rx Medical Decision Making Patient was sent from outpatient surgery for concerns of elevated white blood cell count and elevation in creatinine. On exam patient appeared nontoxic. Respirations were even lungs were clear to auscultation. Patient reported no signs or symptoms of illness. Review of the labs noted a white count of 21,000 and a creatinine of 4.0. Differential diagnosis includes VICTOR MANUEL, rhabdomyolysis, UTI, sepsis, dehydration, renal insufficiency. Review of the record noted that patient did have a similar event last September that ended up being related to patient's amphetamine use. I confronted the patient regarding this and patient did admit that she had been using amphetamines prior to her surgery because she was anxious about the surgery. Patient was given 2 L of IV fluids and repeat CMP noted improvement of creatinine down to 3.0. Believe patient is probably suffering some dehydration and renal insufficiency secondary to amphetamine use. Patient wished to go home to drink fluids and to follow-up with her primary care in 2 to 3 days for recheck of kidney function. Patient's CK was only 600 at this time so I believe she should recover well. Patient reported understanding of care plan and need for follow-up or return to the ER. Lab Data 02/20/23 17:19 02/20/23 20:29 Radiology Impressions Chest/Abdomen X-ray 02/20/23 17:38 IMPRESSION: 1. Left lower lobe atelectasis versus minimal infiltrate. 2. Moderate severe constipation, negative for bowel dilation to indicate obstruction. Laboratory Results WBC 21.60 10^3/uL (3.29-11.43) H 02/20/23 17:19 RBC 4.40 10^6/uL (3.85-5.65) 02/20/23 17:19 Hgb 12.70 g/dL (11.27-16.99) 02/20/23 17:19 Hct 40.3 % (36-47) 02/20/23 17:19 MCV 91.6 fl (85-98) 02/20/23 17:19 MCH 28.9 pg (27-33) 02/20/23 17:19 MCHC 31.5 g/dL (30-55) 02/20/23 17:19 RDW 16.1 % (12.1-15.1) H 02/20/23 17:19 Plt Count 667 10^3/cmm (157-399) H 02/20/23 17:19 MPV 10.1 fL (7.4-10.4) 02/20/23 17:19 Neut % (Auto) 82.4 % 02/20/23 17:19 Lymph % (Auto) 9.1 % 02/20/23 17:19 [place]ell % (Auto) 7.5 % 02/20/23 17:19 Eos % (Auto) 0.0 % 02/20/23 17:19 Baso % (Auto) 0.2 % 02/20/23 17:19 Neut # (Auto) 17.78 10^3/uL (1.8-7.7) H 02/20/23 17:19 Lymph # (Auto) 2.0 10^3/uL (0.8-4.8) 02/20/23 17:19 Jewell # (Auto) 1.6 10^3/uL (0.2-0.9) H 02/20/23 17:19 Eos # (Auto) 0.0 10^3/uL (0.0-0.8) 02/20/23 17:19 Baso # (Auto) 0.1 10^3/uL (0.0-0.1) 02/20/23 17:19 Nucleated RBC % (auto) 0 % 02/20/23 17:19 Nucleated RBCs # 0.0 /100WBC 02/20/23 17:19 Sodium 136 mmol/L (136-145) 02/20/23 20:29 Potassium 4.3 mmol/L (3.5-5.1) 02/20/23 20:29 Chloride 100 mmol/L (98-107) 02/20/23 20:29 Carbon Dioxide 24 mmol/L (22-29) 02/20/23 20:29 Anion Gap 16.3 (5-19) 02/20/23 20:29 BUN 42 mg/dL (6-20) H 02/20/23 20:29 Creatinine 3.1 mg/dL (0.5-0.9) H 02/20/23 20:29 GFR Calculation 15.5 mL/min (90-130) L 02/20/23 20: Glucose 130 mg/dL (65-115) H 02/20/23 20:29 Calculated Osmolality 294 mOsm/kg (285-295) 02/20/23 20: Calcium 8.6 mg/dL (8.5-10.5) 02/20/23 20:29 Total Bilirubin 0.2 mg/dL (0.15-1.2) 02/20/23 17:19 AST 39 U/L (0-32) H 02/20/23 17:19 ALT 22 U/L (0-33) 02/20/23 17:19 Alkaline Phosphatase 94 U/L (35-105) 02/20/23 17:19 Creatine Kinase 656 U/L (26-192) H* 02/20/23 17:19 Total Protein 7.9 g/dL (6.6-8.7) 02/20/23 17:19 Albumin 4.1 g/dL (3.5-5.2) 02/20/23 17:19 Globulin 3.8 g/dL (1.3-4.6) 02/20/23 17:19 Urine Color Yellow (Yellow) 02/20/23 20:00 Urine Appearance Hazy (CLEAR) A 02/20/23 20:00 Urine pH 5 (5-7) 02/20/23 20:00 Ur Specific [place] 1.015 (1.005-1.030) 02/20/23 20:00 Urine Protein 1+ (Negative) H 02/20/23 20:00 Urine Glucose (UA) Norm (Normal) 02/20/23 20:00 Urine Ketones Negative (Negative) 02/20/23 20:00 Urine Blood 3+ (Negative) H 02/20/23 20:00 Urine Nitrate Negative (Negative) 02/20/23 20:00 Urine Bilirubin Neg (Negative) 02/20/23 20:00 Urine Urobilinogen Neg mg/dL (Negative) 02/20/23 20:00 Ur Leukocyte Esterase 1+ (Negative) H 02/20/23 20:00 Urine RBC 5-10 /hpf (0-2) H 02/20/23 20:00 Urine WBC 5-10 /hpf (0-5) H 02/20/23 20:00 Ur Squamous Epith Cells 10-15 /hpf (0-5) H 02/20/23 20:00 Calcium Oxalate Crystal 5-10 /hpf H 02/20/23 20:00 Amorphous Sediment 2+ /hpf 02/20/23 20:00 Urine Bacteria 1+ /hpf (NONE) H 02/20/23 20:00 Hyaline Casts 0-4 /lpf H 02/20/23 20:00 Urine Opiates Screen Negative ng/mL (Negative) 02/20/23 20:00 Ur Barbiturates Screen Negative ng/mL (Negative) 02/20/23 20:00 Ur Phencyclidine Scrn Negative ng/mL (Negative) 02/20/23 20:00 Ur Amphetamines Screen Positive ng/mL (Negative) H 02/20/23 20:00 U Benzodiazepines Scrn Negative ng/mL (Negative) 02/20/23 20:00 Urine Cocaine Screen Negative ng/mL (Negative) 02/20/23 20:00 U Marijuana (THC) Screen Negative ng/mL (Negative) 02/20/23 20:00 Discharge Plan Discharge Patient Disposition: Home Clinical Impression: Acute kidney injury Amphetamine adverse reaction Qualifiers: Encounter type: initial encounter Qualified Code(s): T43.625A - Adverse effect of amphetamines, initial encounter Condition: Stable Prescriptions: No Action tramadol 50 mg tablet 50 mg PO Q4H PRN (Reason: pain) Qty: 30 0RF (DME) E0748 Bone Growth Stimulator See Rx Instructions .Route .MEDSUPPLY Qty: 1 0RF Rx Instructions: As directed loratadine [Claritin] 10 mg Tablet 10 mg PO DAILY multivitamin Tablet 1 tab PO DAILY gabapentin 100 mg capsule 100 mg PO TID fluoxetine 20 mg capsule 20 mg PO DAILY duloxetine 30 mg capsule,delayed release(DR/EC) 30 mg PO DAILY amlodipine 10 mg tablet 10 mg PO DAILY Qty: 30 0RF Discharge Orders: Discharge ED (Routine); Ordered 02/20/23 Ordered By: Blue Dos Santos Referrals: Park Frances FNP [Primary Care Provider] - Discharge Diet: Usual diet Discharge Activity: Increase activity as tolerated Patient Instructions: Acute Kidney Injury (DC) Activity Restrictions/Additional Instructions: Continue drinking fluids and returning to a normal diet. Avoid further amphetamine use. Follow-up with primary care for further instructions. Return to ED for worsening symptoms such as diarrhea, vomiting, or fever greater than 100.4. Coding Level of Care Code ED Merchandise Planning Manager for Tabatha Mayer
[2023-02-20 17:12] VITALS: BP 181/125; PULSE 109; RESP 18; O2SAT 94
[2023-02-20 17:30] LABS: Basophils # 0.1 10^3/uL (0.0-0.1); Basophils % 0.2 %; Hematocrit 40.3 % (36-47); Lymphocytes % 9.1 %; Mean Corpuscular HGB Conc 31.5 g/dL (30-55); Mean Corpuscular Hemoglobin 28.9 pg (27-33); Mean Corpuscular Volume 91.6 fl (85-98); Mean Platelet Volume 10.1 fL (7.4-10.4); Monocytes # 1.6 10^3/uL (0.2-0.9); Monocytes % 7.5 %; Neutrophils # 17.78 10^3/uL (1.8-7.7); Neutrophils % 82.4 %; Nucleated Red Blood Cells % 0 %; Platelet Count 667 10^3/cmm (157-399); Red Cell Distribution Width 16.1 % (12.1-15.1)
--- NOTE | 2023-02-20 17:38 | XRR_ITS ---
PROCEDURE INFORMATION: Exam: XR Abdomen Exam date and time: 02/20/2023 5:43 PM Age: 57 years old Clinical indication: Other: Elevated wbc TECHNIQUE: Imaging protocol: Radiologic exam of the abdomen. Views: 2 Views. Upright and supine views. COMPARISON: CT abdomen pelvis con [id number] 09/12/2022 3:54 PM FINDINGS: Lungs: Left lower lobe atelectasis versus minimal infiltrate. Gastrointestinal tract: Moderate severe constipation, negative for bowel dilation to indicate obstruction. Intraperitoneal space: Normal. No free air. Bones/joints: Unremarkable for age. XR/XR acute abdomen series [id number] IMPRESSION: 1. Left lower lobe atelectasis versus minimal infiltrate. 2. Moderate severe constipation, negative for bowel dilation to indicate obstruction.
[2023-02-20 17:56] LABS: Alanine Aminotransferase 22 U/L (0-33); Albumin Level 4.1 g/dL (3.5-5.2); Alkaline Phosphatase 94 U/L (35-105); Anion Gap 21.5 (5-19); Aspartate Amino Transferase 39 U/L (0-32); Blood Urea Nitrogen 44 mg/dL (6-20); Calcium 9.8 mg/dL (8.5-10.5); Carbon Dioxide 24 mmol/L (22-29); Chloride 97 mmol/L (98-107); Globulin 3.8 g/dL (1.3-4.6); Glomerular Filtration Rate 11.5 mL/min (90-130); Glucose 129 mg/dL (65-115); Osmolality Calculated 299 mOsm/kg (285-295); Potassium 4.5 mmol/L (3.5-5.1); Sodium 138 mmol/L (136-145); Total Bilirubin 0.2 mg/dL (0.15-1.2); Total Protein 7.9 g/dL (6.6-8.7)
[2023-02-20] MEDS: sodium chloride 0.9% 1,000 ML 999 ML IV ×2 (18:00→19:02)
[2023-02-20 18:23] LABS: Creatine Phosphokinase 656 U/L (26-192)
--- NOTE | 2023-02-20 19:05 | PC.NURSE ---
PT IS REQUESTING PAIN MEDS. PT STATES SHE TAKES TRAMADOL AND GABAPENTIN AT HOME. PT RATES PAIN 9/10 IN LOWER BACK
[2023-02-20 19:23] VITALS: BP 152/91; PULSE 103; O2SAT 95
--- NOTE | 2023-02-20 20:05 | PC.NURSE ---
PT REQUESTED TO LEAVE, PROVIDER DISCUSSED W PATIENT LEAVING AMA AND RISKS D/T KIDNEY FUNCTION. PT ELECTED TO WAIT TILL MORE LAB RESULTS CAME BACK
[2023-02-20 20:18] LABS: Amphetamines Screen Urine Positive (Negative); Barbiturates Screen Urine Negative (Negative); Benzodiazepines Screen Urine Negative (Negative); Cocaine Screen Urine Negative (Negative); Opiate Screen Urine Negative (Negative); PCP Screen Urine Negative (Negative); THC Screen Urine Negative (Negative)
[2023-02-20 20:19] LABS: Add Urine Microscopic? YES; Bilirubin Urine Neg (Negative); Blood Urine 3+ (Negative); Glucose Urine UA Norm (Normal); Ketones Urine Negative (Negative); Leukocyte Esterase Urine 1+ (Negative); Nitrate Urine Negative (Negative); Protein Urine 1+ (Negative); Specific Gravity, Urine 1.015 (1.005-1.030); Urine Appearance Hazy (CLEAR); Urine Color Yellow (Yellow); Urobilinogen Urine Neg (Negative); pH Urine 5 (5-7)
[2023-02-20 20:20] LABS: Amorphous Sediment Urine 2+ /hpf; Bacteria Urine 1+ /hpf
[2023-02-20 20:21] LABS: Add Urine Culture? No; Hyaline Casts Urine 0-4 /lpf
[2023-02-20] MEDS: HYDROcodone-acetaminophen 7.5-325 mg Tablet 1 TAB PO (20:41)
[2023-02-20 20:50] LABS: Anion Gap 16.3 (5-19); Blood Urea Nitrogen 42 mg/dL (6-20); Calcium 8.6 mg/dL (8.5-10.5); Carbon Dioxide 24 mmol/L (22-29); Chloride 100 mmol/L (98-107); Glomerular Filtration Rate 15.5 mL/min (90-130); Glucose 130 mg/dL (65-115); Osmolality Calculated 294 mOsm/kg (285-295); Potassium 4.3 mmol/L (3.5-5.1); Sodium 136 mmol/L (136-145)
== END 2023-02-20 21:20 | disposition home or self-care (01) ==
PROVIDERS: Emergency Provider Nurse Practitioner Family; PCP Nurse Practitioner Family
DX: N17.9 Acute kidney failure, unspecified (principal); T88.7XXA Unspecified adverse effect of drug or medicament, initial encounter; T43.625A Adverse effect of amphetamines, initial encounter; Z77.22 Contact with and (suspected) exposure to environmental tobacco smoke (acute) (chronic); I10 Essential (primary) hypertension; S80.862A Insect bite (nonvenomous), left lower leg, initial encounter; S80.861A Insect bite (nonvenomous), right lower leg, initial encounter; W57.XXXA Bitten or stung by nonvenomous insect and other nonvenomous arthropods, initial encounter
CPT/HCPCS: 36415; 74022; 80048; 80053; 80306; 81001; 82550; 85025; 96360; 96361; 99284; J7030

== ENCOUNTER 2023-03-11 06:01 | Emergency (ER) | payer MEDICAID, SELFPAY ==
[2023-03-11 06:07] VITALS: BP 166/84; PULSE 120; RESP 18; TEMP 36.9; O2SAT 96; BMI 30.9
--- NOTE | 2023-03-11 06:22 | ED_ITS ---
HPI - Wound/Laceration General: Chief Complaint: Wound/Laceration Stated Complaint: covid +, right leg swollen Time Seen by Provider: 03/11/23 06:20 Source: patient Mode of arrival: ambulatory History of Present Illness: 57-year-old female presents emergency room with complaints of swelling to her right lower leg she has a small excoriated area in the anterior tibia distally. No active drainage mild localized redness. She recently was on a course of Bactrim because of elevated white counts not because of an identified infection per her report. She was supposed to have a back surgery however was canceled because she had a preop lab showing leukocytosis. She has a history of chronic kidney disease has had episodes of acute kidney injury requiring hospitalization she has not been on any dialysis. The swelling is mostly limited to her right leg. She has some mild calf tenderness. 12 days ago she tested positive for COVID. Her symptoms have resolved for the most part. Onset (ago): day(s) Associated symptoms: Denies chills, fever(s), foreign body sensation, inability to move, nausea, numbness, pain, syncope or vomiting Review of Systems Const: Denies: fever(s) or chills ENMT: Denies: throat pain, ear or mastoid pain, nasal discharge or nasal congestion Card: Denies: chest pain or syncope Resp: Denies: dyspnea, productive cough or non-productive cough GI: Denies: abdominal pain, nausea or vomiting : Denies: flank pain, difficulty voiding, dysuria, urinary frequency or urinary urgency Musc: Reports: extremity pain and extremity swelling Skin/Breast: Denies: rash or pruritus PFSH ED PFSH: Medical History Amphetamine abuse Anxiety Arthritis Chronic cholecystitis History of cataract Hypertension Hypothalamic hypothyroidism Lactic acid acidosis Lumbar disc disease with radiculopathy Surgical History History of tubal ligation Social History Smoking and tobacco status: never smoked Second hand smoke exposure: Yes Alcohol intake: never Substance/Drug Use: never Physical Exam Const: GENERAL APPEARANCE: cooperative and comfortable ORIENTATION/ CONSCIOUSNESS: Yes awake, Yes oriented to person, Yes oriented to place and Yes oriented to time HENMT: COMMON NORMALS: normocephalic, atraumatic and hearing grossly normal bilaterally HEAD & SCALP: normocephalic and atraumatic Resp: COMMON NORMALS: normal respiratory effort, No retractions, No use of accessory muscles and clear to auscultation bilaterally AUSCULTATION: clear to auscultation bilaterally Cardio: COMMON NORMALS: regular rate, regular rhythm and No murmurs present (Cardio) RATE: regular rate RHYTHM: regular rhythm GI: COMMON NORMALS: Soft to palpation and No hepatosplenomegaly present AUSCULTATION: Yes normoactive bowel sounds PALPATION: Yes Soft to palpation, No Tenderness to palpation present (GI), No Guarding due to palpation present (GI) and Yes No hepatosplenomegaly present Extremity: OTHER: Moderate swelling of the right lower extremity. There are some areas of abrasion or excoriation localized redness no drainage. No lymphangitic spread. 1+ edema right lower extremity Neuro: SENSORIUM/ORIENTATION: Yes oriented to person, Yes oriented to place and Yes oriented to time Skin: COMMON NORMALS: no rashes or lesions noted GENERAL SKIN EXAM: no rashes or lesions noted Course Vital Signs: Vital signs: Vital Signs Temperature 98.5 F 03/11/23 06:07 Pulse Rate 97 03/11/23 08:17 Respiratory Rate 17 03/11/23 08:17 Blood Pressure 125/87 03/11/23 06:28 Pulse Oximetry 98 03/11/23 08:17 Oxygen Delivery Me thod Room Air 03/11/23 06:28 MDM - Wound/Laceration Medical Decision Making No DVT on venous duplex. No leukocytosis. She was recently on Bactrim no significant acute kidney injury although her creatinine is slightly elevated from her baseline. We will start her on Lasix 20 daily use topical antibiotic ointment also encourage patient to use compression stockings she can get [id number]. Follow-up early next week is scheduled with her primary care provider for repeat lab work encouraged her to follow-up with that she will need a repeat BMP at that time. Medical Records I reviewed the patient's medical records. Lab Data I reviewed the patient's lab results. 03/11/23 06:40 03/11/23 06:40 Radiology Impressions Venous Duplex 03/11/23 06:34 IMPRESSION: 1. No evidence of deep venous thrombosis. 2. Subcutaneous edema involving the right lower leg. Laboratory Results WBC 6.29 10^3/uL (3.29-11.43) 03/11/23 06:40 RBC 3.59 10^6/uL (3.85-5.65) L 03/11/23 06:40 Hgb 10.50 g/dL (11.27-16.99) L 03/11/23 06:40 Hct 32.9 % (36-47) L 03/11/23 06:40 MCV 91.6 fl (85-98) 03/11/23 06:40 MCH 29.2 pg (27-33) 03/11/23 06:40 MCHC 31.9 g/dL (30-55) 03/11/23 06:40 RDW 15.8 % (12.1-15.1) H 03/11/23 06:40 Plt Count 441 10^3/cmm (157-399) H 03/11/23 06:40 MPV 10.4 fL (7.4-10.4) 03/11/23 06:40 Neut % (Auto) 60.4 % 03/11/23 06:40 Lymph % (Auto) 29.4 % 03/11/23 06:40 [place] % (Auto) 7.2 % 03/11/23 06:40 Eos % (Auto) 1.9 % 03/11/23 06:40 Baso % (Auto) 0.5 % 03/11/23 06:40 Neut # (Auto) 3.80 10^3/uL (1.8-7.7) 03/11/23 06:40 Lymph # (Auto) 1.9 10^3/uL (0.8-4.8) 03/11/23 06:40 Barry # (Auto) 0.5 10^3/uL (0.2-0.9) 03/11/23 06:40 Eos # (Auto) 0.1 10^3/uL (0.0-0.8) 03/11/23 06:40 Baso # (Auto) 0.0 10^3/uL (0.0-0.1) 03/11/23 06:40 Nucleated RBC % (auto) 0 % 03/11/23 06:40 Nucleated RBCs # 0.0 /100WBC 03/11/23 06:40 D-Dimer 0.50 ug/mLFEU (0-0.59) 03/11/23 06:40 Sodium 133 mmol/L (136-145) L 03/11/23 06:40 Potassium 3.8 mmol/L (3.5-5.1) 03/11/23 06:40 Chloride 96 mmol/L (98-107) L 03/11/23 06:40 Carbon Dioxide 27 mmol/L (22-29) 03/11/23 06:40 Anion Gap 13.8 (5-19) 03/11/23 06:40 BUN 24 mg/dL (6-20) H 03/11/23 06:40 Creatinine 1.0 mg/dL (0.5-0.9) H 03/11/23 06:40 GFR Calculation 57.1 mL/min (90-130) L 03/11/23 06:40 Glucose 117 mg/dL (65-115) H 03/11/23 06:40 Calculated Osmolality 281 mOsm/kg (285-295) L 03/11/23 06:40 Calcium 9.4 mg/dL (8.5-10.5) 03/11/23 06:40 Total Bilirubin 0.3 mg/dL (0.15-1.2) 03/11/23 06:40 AST 16 U/L (0-32) 03/11/23 06:40 ALT 13 U/L (0-33) 03/11/23 06:40 Alkaline Phosphatase 105 U/L (35-105) 03/11/23 06:40 Total Protein 6.8 g/dL (6.6-8.7) 03/11/23 06:40 Albumin 3.4 g/dL (3.5-5.2) L 03/11/23 06:40 Globulin 3.4 g/dL (1.3-4.6) 03/11/23 06:40 Urine Color Yellow (Yellow) 03/11/23 07:05 Urine Appearance Sl hazy (CLEAR) A 03/11/23 07:05 Urine pH 6 (5-7) 03/11/23 07:05 Ur Specific [place] 1.010 (1.005-1.030) 03/11/23 07:05 Urine Protein Neg (Negative) 03/11/23 07:05 Urine Glucose (UA) Norm (Normal) 03/11/23 07:05 Urine Ketones Negative (Negative) 03/11/23 07:05 Urine Blood 2+ (Negative) H 03/11/23 07:05 Urine Nitrate Negative (Negative) 03/11/23 07:05 Urine Bilirubin Neg (Negative) 03/11/23 07:05 Urine Urobilinogen Norm mg/dL (Negative) 03/11/23 07:05 Ur Leukocyte Esterase 1+ (Negative) H 03/11/23 07:05 Urine RBC 0-4 /hpf (0-2) H 03/11/23 07:05 Urine WBC 5-10 /hpf (0-5) H 03/11/23 07:05 Ur Squamous Epith Cells 5-10 /hpf (0-5) H 03/11/23 07:05 Amorphous Sediment Not Reportable 03/11/23 07:05 Urine Bacteria 1+ /hpf (NONE) H 03/11/23 07:05 Urine Mucus Trace /hpf 03/11/23 07:05 All radiology interpretation(s) finalized by discharge Discharge Plan Discharge Patient Disposition: Home Clinical Impression: Leg edema, right Condition: Stable Prescriptions: New furosemide 20 mg tablet 20 mg PO DAILY Qty: 7 0RF mupirocin 2 % ointment 1 applic topical BID Qty: 22 0RF No Action tramadol 50 mg tablet 50 mg PO Q4H PRN (Reason: pain) Qty: 30 0RF (DME) E0748 Bone Growth Stimulator See Rx Instructions .Route .MEDSUPPLY Qty: 1 0RF Rx Instructions: As directed loratadine [Claritin] 10 mg Tablet 10 mg PO DAILY multivitamin Tablet 1 tab PO DAILY gabapentin 100 mg capsule 100 mg PO TID fluoxetine 20 mg capsule 20 mg PO DAILY duloxetine 30 mg capsule,delayed release(DR/EC) 30 mg PO DAILY amlodipine 10 mg tablet 10 mg PO DAILY Qty: 30 0RF Discharge Orders: Discharge ED (Routine); Ordered 03/11/23 Ordered By: Herman Malcolm Referrals: Park Frances, [facility] [Primary Care Provider] - Discharge Diet: Low Salt Discharge Activity: Increase activity as tolerated Patient Instructions: Opioid Safety, Pain Management Activity Restrictions/Additional Instructions: Start Lasix 20 mg once daily in the morning. Use topical antibiotic ointment on the open wounds on your leg. Also recommend you get [id number] compression stockings to wear in your lower extremities. Because of your history of previous acute kidney injuries you should have your kidney function rechecked in 2 to 3 days with your primary care doctor. Coding Level of Care Code ED Joy Loading Machine Operator for Tabatha Mayer
[2023-03-11 06:28] VITALS: BP 125/87; PULSE 110; O2SAT 99
--- NOTE | 2023-03-11 06:34 | USR_ITS ---
PROCEDURE INFORMATION: Exam: US Duplex Right Lower Extremity Veins, Limited Exam date and time: 03/11/2023 7:09 AM Age: 57 years old Clinical indication: Right lower leg pain. Swelling. TECHNIQUE: Imaging protocol: Real-time duplex ultrasound of the right extremity with 2-D valencia scale, color Doppler flow and spectral waveform analysis including responses to compression and other maneuvers (when performed) with image documentation. Limited exam was focused on the right lower extremity veins. COMPARISON: US ROR venous duplex LE RT 11/24/2022 1:27 PM FINDINGS: The common femoral, femoral, popliteal and posterior tibial veins are patent. There is appropriate compression and augmentation. Doppler interogation reveals venous blood flow. There is subcutaneous edema involving the right lower [place]. US/[place] [id number] IMPRESSION: 1. No evidence of deep venous thrombosis. 2. Subcutaneous edema involving the right lower leg.
[2023-03-11 07:05] LABS: Basophils % 0.5 %; Eosinophils # 0.1 10^3/uL (0.0-0.8); Eosinophils % 1.9 %; Hematocrit 32.9 % (36-47); Lymphocytes # 1.9 10^3/uL (0.8-4.8); Lymphocytes % 29.4 %; Mean Corpuscular HGB Conc 31.9 g/dL (30-55); Mean Corpuscular Hemoglobin 29.2 pg (27-33); Mean Corpuscular Volume 91.6 fl (85-98); Mean Platelet Volume 10.4 fL (7.4-10.4); Monocytes # 0.5 10^3/uL (0.2-0.9); Monocytes % 7.2 %; Neutrophils % 60.4 %; Nucleated Red Blood Cells % 0 %; Platelet Count 441 10^3/cmm (157-399); Red Blood Count 3.59 10^6/uL (3.85-5.65); Red Cell Distribution Width 15.8 % (12.1-15.1); White Blood Count 6.29 10^3/uL (3.29-11.43)
[2023-03-11 07:24] LABS: Add Urine Microscopic? YES; Bilirubin Urine Neg (Negative); Blood Urine 2+ (Negative); Glucose Urine UA Norm (Normal); Ketones Urine Negative (Negative); Leukocyte Esterase Urine 1+ (Negative); Nitrate Urine Negative (Negative); Protein Urine Neg (Negative); Urine Appearance SL Hazy (CLEAR); Urine Color Yellow (Yellow); Urobilinogen Urine Norm (Negative); pH Urine 6 (5-7)
[2023-03-11 07:26] LABS: RBC Urine 0-4 /hpf (0-2)
[2023-03-11 07:27] LABS: Add Urine Culture? Yes; Bacteria Urine 1+ /hpf; Mucus Urine TRACE /hpf
[2023-03-11 07:28] LABS: Alanine Aminotransferase 13 U/L (0-33); Albumin Level 3.4 g/dL (3.5-5.2); Alkaline Phosphatase 105 U/L (35-105); Anion Gap 13.8 (5-19); Aspartate Amino Transferase 16 U/L (0-32); Blood Urea Nitrogen 24 mg/dL (6-20); Calcium 9.4 mg/dL (8.5-10.5); Carbon Dioxide 27 mmol/L (22-29); Chloride 96 mmol/L (98-107); Globulin 3.4 g/dL (1.3-4.6); Glomerular Filtration Rate 57.1 mL/min (90-130); Glucose 117 mg/dL (65-115); Osmolality Calculated 281 mOsm/kg (285-295); Potassium 3.8 mmol/L (3.5-5.1); Sodium 133 mmol/L (136-145); Total Bilirubin 0.3 mg/dL (0.15-1.2); Total Protein 6.8 g/dL (6.6-8.7)
[2023-03-11 08:17] VITALS: PULSE 97; RESP 17; O2SAT 98
== END 2023-03-11 08:18 | disposition home or self-care (01) ==
PROVIDERS: Emergency Provider Family Medicine; PCP Nurse Practitioner Family
DX: R60.0 Localized edema (principal); Z77.22 Contact with and (suspected) exposure to environmental tobacco smoke (acute) (chronic); I10 Essential (primary) hypertension
CPT/HCPCS: 36415; 80053; 81001; 85025; 85378; 87086; 93971; 99284

== ENCOUNTER → 2023-03-29 14:07 | Outpatient (BNVA) | payer MEDICAID, SELFPAY | PROVIDERS: PCP Nurse Practitioner Family; Visit Provider Physician Assistant | DX: M43.16 Spondylolisthesis, lumbar region (principal) | CPT/HCPCS: 72100 ==

== ENCOUNTER 2023-04-17 09:46 | Outpatient (CLI) | payer MEDICAID, SELFPAY ==
--- NOTE | 2023-04-17 09:52 | MM_ITS ---
WS: [id number] BILATERAL SCREENING DIGITAL TOMOSYNTHESIS MAMMOGRAM WITH CAD HISTORY: Z12.39 - Encounter for other screening for malignant neop... COMPARISON: 04/14/2022 Bilateral CC and MLO views with tomosynthesis and synthetic mammography submitted. Computer aided det ection analyzed. Breast composition: There are scattered areas of fibroglandular density. No suspicious masses, microc alcifications or architectural distortion. IMPRESSION: MM/[place] [id number] BI-RADS: 1-Negative FOLLOW UP: 1 Year Follow-up
== END 2023-04-17 09:47 | disposition home or self-care (01) ==
LOC: RAD 09:46
PROVIDERS: PCP Nurse Practitioner Family; Visit Provider Obstetrics & Gynecology
DX: Z12.31 Encounter for screening mammogram for malignant neoplasm of breast (principal)
CPT/HCPCS: 77063; 77067

== ENCOUNTER 2023-05-02 16:42 | Outpatient (CLI) | payer MEDICAID, SELFPAY ==
[2023-05-02 17:45] LABS: Basophils % 0.2 %; Eosinophils # 0.2 10^3/uL (0.0-0.8); Eosinophils % 1.9 %; Hematocrit 41.7 % (36-47); Lymphocytes # 3.3 10^3/uL (0.8-4.8); Lymphocytes % 36.4 %; Mean Corpuscular HGB Conc 30.7 g/dL (30-55); Mean Corpuscular Hemoglobin 28.7 pg (27-33); Mean Corpuscular Volume 93.5 fl (85-98); Mean Platelet Volume 10.6 fL (7.4-10.4); Monocytes # 0.5 10^3/uL (0.2-0.9); Neutrophils # 5.02 10^3/uL (1.8-7.7); Neutrophils % 56.2 %; Nucleated Red Blood Cells % 0 %; Platelet Count 487 10^3/cmm (157-399); Red Blood Count 4.46 10^6/uL (3.85-5.65); Red Cell Distribution Width 15.9 % (12.1-15.1); White Blood Count 8.94 10^3/uL (3.29-11.43)
[2023-05-02 17:57] LABS: Alanine Aminotransferase 13 U/L (0-33); Albumin Level 3.8 g/dL (3.5-5.2); Alkaline Phosphatase 123 U/L (35-105); Anion Gap 15.6 (5-19); Aspartate Amino Transferase 13 U/L (0-32); Blood Urea Nitrogen 24 mg/dL (6-20); Calcium 9.5 mg/dL (8.5-10.5); Carbon Dioxide 26 mmol/L (22-29); Chloride 99 mmol/L (98-107); Glomerular Filtration Rate 73.9 mL/min (90-130); Glucose 108 mg/dL (65-115); Osmolality Calculated 289 mOsm/kg (285-295); Potassium 3.6 mmol/L (3.5-5.1); Sodium 137 mmol/L (136-145); Total Bilirubin 0.2 mg/dL (0.15-1.2); Total Protein 7.8 g/dL (6.6-8.7)
[2023-05-02 19:39] LABS: Add Urine Microscopic? YES; Bilirubin Urine Neg (Negative); Blood Urine Neg (Negative); Glucose Urine UA Norm (Normal); Ketones Urine Negative (Negative); Leukocyte Esterase Urine Trace (Negative); Nitrate Urine Negative (Negative); Protein Urine Neg (Negative); Urine Appearance Clear (CLEAR); Urine Color Light yellow (Yellow); Urobilinogen Urine Norm (Negative); pH Urine 5 (5-7)
[2023-05-02 19:42] LABS: Add Urine Culture? No; Bacteria Urine TRACE /hpf; RBC Urine 0-4 /hpf (0-2); Renal Epithelial Cells Urine RARE /hpf; Squamous Epithelial Cell Urine 0-4 /hpf (0-5); Transitional Epi Cells Urine 0-4 /hpf; WBC Urine 0-4 /hpf (0-5)
== END 2023-05-02 16:43 | disposition home or self-care (01) ==
LOC: LAB 16:43
PROVIDERS: PCP Nurse Practitioner Family; Visit Provider Orthopaedic Surgery
DX: Z01.818 Encounter for other preprocedural examination (principal)
CPT/HCPCS: 80053; 81001; 85025

== ENCOUNTER 2024-03-21 14:06 | Emergency (ER) | payer MEDICAID, SELFPAY ==
[2024-03-21 14:16] VITALS: BP 156/88; PULSE 78; RESP 17; TEMP 37.2; O2SAT 97; BMI 33.6
--- NOTE | 2024-03-21 14:46 | XRR_ITS ---
PROCEDURE INFORMATION: Exam: XR Right Ankle Exam date and time: 03/21/2024 2:58 PM Age: 58 years old Clinical indication: Injury or trauma; Fall; Blunt trauma; Ankle; Right; Additional info: Inversion injury, 03/21 pain TECHNIQUE: Imaging protocol: Radiologic exam of the right ankle. Views: 3 or more views. COMPARISON: US ROR venous duplex LE RT 11/24/2022 1:27 PM FINDINGS: Bones/joints: There are acute trimalleolar fractures involving the ankle with lateral displacement of the talus. No other fracture noted. Soft tissues: Normal. XR/XR ankle RT min 3V* [id number] IMPRESSION: Acute bimalleolar fractures of the ankle with talar displacement
--- NOTE | 2024-03-21 14:50 | XRR_ITS ---
PROCEDURE INFORMATION: Exam: XR Right Knee Exam date and time: 03/21/2024 3:11 PM Age: 58 years old Clinical indication: Injury or trauma; Fall; Blunt trauma; Knee; Right; Additional info: Pain to palpation TECHNIQUE: Imaging protocol: Radiologic exam of the right knee. Views: 3 views. COMPARISON: CR XR tibia fibula RT 2V [id number] 03/21/2024 3:06 PM FINDINGS: Bones/joints: Normal. Soft tissues: Normal. XR/XR knee RT 3V* [id number] IMPRESSION: No acute findings.
--- NOTE | 2024-03-21 14:50 | XRR_ITS ---
PROCEDURE INFORMATION: Exam: XR Right Tibia and Fibula Exam date and time: 03/21/2024 3:06 PM Age: 58 years old Clinical indication: Injury or trauma; Fall; Blunt trauma; Lower leg; Right; Additional info: Pain to lateral pleitez TECHNIQUE: Imaging protocol: Radiologic exam of the right tibia and fibula. Views: 2 views. COMPARISON: CR XR ankle RT min 3V* [id number] 03/21/2024 2:58 PM FINDINGS: Bones/joints: There are acute bimalleolar ankle fractures. No other fracture noted. Soft tissues: Normal. XR/XR tibia fibula RT 2V [id number] IMPRESSION: Acute bimalleolar ankle fractures
--- NOTE | 2024-03-21 14:51 | ED_ITS ---
HPI - Extremity Problem General: Chief complaint: Extremity Injury, Lower Stated complaint: R leg injury Time Seen by Provider: 03/21/24 14:39 Source: patient Mode of arrival: ambulatory Limitations: no limitations History of Present Illness: Patient is a 58-year-old female who presents to the emergency department with right ankle injury that happened prior to arrival. She states she was walking down steps, missed a step, and that there was an inversion ankle injury where she put all of her weight onto an inverted right ankle. She is noting severe pain, 10/10 at this time. She is also reporting the pain is extending proximally up the right lateral pleitez. Has not put weight on it, and states that when her leg is dangling she feels that her right ankle is not attached to her body. At this time she has not taken anything for pain and is requesting something. Denies any other injuries. No previous fractures or dislocations to the right ankle. MD Complaint: extremity pain, joint swelling and joint pain Onset (ago): minute(s) Pain Consistency: constant Location: right and lower extremity Severity scale (1-10): 10 Radiation: proximal Exacerbating factors: range of motion, weight bearing, walking and palpation Associated symptoms: Deny chest pain, fever(s) or rash Related Data Home Medications Medication Instructions Recorded Confirmed loratadine 10 mg tablet (Claritin) 10 mg PO DAILY 11/05/19 04/18/23 duloxetine 30 mg capsule,delayed 30 mg PO DAILY 09/10/22 04/18/23 release fluoxetine 20 mg capsule 20 mg PO DAILY 09/10/22 04/18/23 gabapentin 100 mg capsule 100 mg PO TID 09/10/22 04/18/23 multivitamin 1 tab PO DAILY 09/10/22 04/18/23 Previous Rx's Medication Instructions Recorded amlodipine 10 mg tablet 10 mg PO DAILY #30 tabs 09/14/22 E0748 Bone Growth Stimulator #1 ea 02/03/23 furosemide 20 mg tablet 20 mg PO DAILY #7 tabs 03/11/23 mupirocin 2 % topical ointment 1 applic topical BID #22 grams 03/11/23 tramadol 50 mg tablet 50 mg PO Q6H PRN pain #30 tabs 03/29/23 toxicology clearance #1 ea 05/01/23 Allergies Allergy/AdvReac Type Severity Reaction Status Date / Time Latex gloves Allergy Mild Itchy and Uncoded 03/30/23 16:15 break out Review of Systems General: Reports: 10 or more systems reviewed and unremarkable except in HPI and below Const: Denies: fever(s) or chills Card: Denies: chest pain Resp: Denies: dyspnea or productive cough GI: Denies: abdominal pain, nausea, vomiting or diarrhea : Denies: flank pain Musc: Reports: extremity pain (RLE), joint pain (right ankle), joint swelling (right ankle) and limited range of motion; Denies: neck pain, back pain, extremity swelling, joint redness, joint warmth or muscle weakness Skin/Breast: Denies: rash Neuro: Denies: headache(s), numbness in extremities or weakness in extremities PFSH ED PFSH: Medical History Psychiatric care Amphetamine abuse Lactic acid acidosis Hypothalamic hypothyroidism Hypertension Arthritis History of cataract Anxiety Lumbar disc disease with radiculopathy Chronic cholecystitis Surgical History History of tubal ligation Social History Smoking and tobacco/nicotine status: never used tobacco/nicotine Second hand smoke exposure: Yes Alcohol intake: never Substance/Drug Use: never Physical Exam Const: COMMON NORMALS: no acute distress, patient oriented x3, no limitations, healthy appearing, alert and well nourished HENMT: COMMON NORMALS: normocephalic and atraumatic HEAD & SCALP: n ormocephalic and atraumatic Neck/C-Spine: COMMON NORMALS: full ROM, supple and no meningeal signs Resp: COMMON NORMALS: normal respiratory effort, No use of accessory muscles and clear to auscultation bilaterally AUSCULTATION: clear to auscultation bilaterally Cardio: COMMON NORMALS: regular rate and regular rhythm RATE: regular rate RHYTHM: regular rhythm Extremity: NARRATIVE EXTREMITY EXAM: Patient extremely intolerant to pain. Endorsing diffuse palpation to the right ankle joint, there is swelling noted both medial and lateral. Her pulses are palpable distally. She is endorsing tenderness to palpation of the right lateral pleitez, though again intolerant to pain. No significant reproducible tenderness to palpation of the knee joint with no obvious signs of trauma or deformity here. She can move extremity distally, is not endorsing any distal sensory changes. Neuro: COMMON NORMALS: patient oriented x3, moves all extremities, no focal motor deficits and no sensory deficits noted SENSORIUM/ORIENTATION: Yes alert MENINGEAL SIGNS: Yes no meningeal signs Skin: COMMON NORMALS: no rashes or lesions noted GENERAL SKIN EXAM: no rashes or lesions noted Course Vital Signs: Vital signs: Vital Signs Temperature 98.9 F 03/21/24 14:16 Pulse Rate 75 03/21/24 15:21 Respiratory Rate 16 03/21/24 15:21 Blood Pressure 154/76 03/21/24 15:21 Pulse Oximetry 96 03/21/24 15:21 Oxygen Delivery Me thod Room Air 03/21/24 15:21 MDM - Extremity (Nontraumatic) Medical Decision Making This patient injured her right foot prior to arrival, swelling was noted to both aspects of the right foot and there was significant diffuse tenderness to palpation. An x-ray demonstrated a bimalleolar fracture, Dr. Edwards was consulted on this and he will see the patient tomorrow morning. Patient placed in posterior short leg splint with stirrup, has her own crutches, and post splint neurovascular status was intact. She was given Toradol here and does note that she is in less pain prior to discharge. X-ray of her knee was obtained to evaluate for proximal fibula status, this was negative. Reasons to return were discussed, patient discharged home at this time. Lab Data Radiology Impressions Ankle X-Ray 03/21/24 14:46 IMPRESSION: Acute bimalleolar fractures of the ankle with talar displacement Knee X-Ray 03/21/24 14:50 IMPRESSION: No acute findings. Tibia/Fibula X-Ray 03/21/24 14:50 IMPRESSION: Acute bimalleolar ankle fractures All radiology interpretation(s) finalized by discharge Discharge Plan Discharge Patient Disposition: Home Clinical Impression: Bimalleolar ankle fracture Qualifiers: Encounter type: initial encounter Fracture type: closed Laterality: right Qualified Code(s): S82.841A - Displaced bimalleolar fracture of right lower leg, initial encounter for closed fracture Condition: Stable Prescriptions: No Action tramadol 50 mg tablet 50 mg PO Q6H PRN (Reason: pain) Qty: 30 0RF (DME) E0748 Bone Growth Stimulator See Rx Instructions .Route .MEDSUPPLY Qty: 1 0RF Rx Instructions: As directed (DME) toxicology clearance See Rx Instructions .Route .MEDSUPPLY Qty: 1 0RF Rx Instructions: As directed loratadine [Claritin] 10 mg Tablet 10 mg PO DAILY multivitamin Tablet 1 tab PO DAILY gabapentin 100 mg capsule 100 mg PO TID fluoxetine 20 mg capsule 20 mg PO DAILY duloxetine 30 mg capsule,delayed release(DR/EC) 30 mg PO DAILY amlodipine 10 mg tablet 10 mg PO DAILY Qty: 30 0RF furosemide 20 mg tablet 20 mg PO DAILY Qty: 7 0RF mupirocin 2 % ointment 1 applic topical BID Qty: 22 0RF Discharge Orders: Discharge ED (Routine); Ordered 03/21/24 Ordered By: Tano Rogel Referrals: Park Frances FNP [Primary Care Provider] - Discharge Diet: As Directed Discharge Activity: Use walker/crutches as instructed Patient Instructions: Ankle Fracture (ED), Pain Management Activity Restrictions/Additional Instructions: Follow-up with podiatry in the morning as scheduled. Elevate the extremity at home and alternate Tylenol and ibuprofen for any pain. Use your crutches for ambulation purposes. Return with any new or concerning symptoms you may have. Coding Level of Care Code ED [facility] for Tabatha Mayer
[2024-03-21] MEDS: ketorolac 60 mg/2 mL INJ IM (14:54)
[2024-03-21 15:21] VITALS: BP 154/76; PULSE 75; RESP 16; O2SAT 96
[2024-03-21 16:58] VITALS: BP 149/65; PULSE 82; RESP 18; O2SAT 95
== END 2024-03-21 17:09 | disposition home or self-care (01) ==
PROVIDERS: Emergency Provider Physician Assistant; PCP Nurse Practitioner Family
DX: S82.841A Displaced bimalleolar fracture of right lower leg, initial encounter for closed fracture (principal); I10 Essential (primary) hypertension; Z77.22 Contact with and (suspected) exposure to environmental tobacco smoke (acute) (chronic); X50.1XXA Overexertion from prolonged static or awkward postures, initial encounter
CPT/HCPCS: 73562; 73590; 73610; 96372; 99284; J1885

== ENCOUNTER 2024-03-29 07:28 | Day surgery (SDC) | payer MEDICAID, SELFPAY ==
[2024-03-29] VITALS (11 sets, daily range): BP systolic 138–181; BP diastolic 91–120; PULSE 72–99; RESP 12–22; TEMP 36.1–36.8; O2SAT 92–99
--- NOTE | 2024-03-29 07:51 | P.ANESASSM_ITS ---
Pre-Anesthetic Assessment Height/Weight: Height 5 ft 3 in Weight 190 lb Temp Pulse Resp BP Pulse Ox O2 Del Method 97.4 F L 83 18 145/102 97 Room Air 03/29/24 07:29 03/29/24 07:29 03/29/24 07:29 03/29/24 07:29 03/29/24 07:29 03/29/24 07:40 Preop Diagnosis: Right bimalleolar fracture Operation Date: 03/29/24 08:55 Proposed Procedures p ORIF Ankle ORIF Bimalleolar Fracture(Right) - Constantine Edwards DPM Was Beta Hugo taken within 24 hours: N/A Was Clonidine taken within 24 hours: N/A Last intake: Intake Last Liquid Date 03/28/24 Last Liquid Time 20:30 Last Solid Date 03/28/24 Last Solid Time 17:00 Social No alcohol and No tobacco Exam alert, oriented x 3, clear to auscultation bilaterally and regular rate & rhythm Airway Submandibular: within normal limits Cervical ROM: within normal limits Mallampati: Class II Dentition: other (Edentulous) Anesthetic Plan ASA status: 2 Anesthesia: General and Regional (specify below) Other: No prior issues with anesthesia NPO since midnight History of hypertension on amlodipine Prior EKG 2022 showing sinus rhythm with a nonspecific T wave Prior amphetamine abuse, quit 1 year ago Plan for GA with post induction popliteal block Medications/Allergies Home Medications Medication Instructions Recorded Confirmed Last Taken Type loratadine 10 mg tablet (Claritin) 10 mg PO DAILY 11/05/19 03/28/24 03/28/24 History duloxetine 30 mg capsule,delayed 30 mg PO DAILY 09/10/22 03/28/24 03/28/24 History release fluoxetine 20 mg capsule 20 mg PO DAILY 09/10/22 03/28/24 03/28/24 History gabapentin 100 mg capsule 100 mg PO TID 09/10/22 03/28/24 03/28/24 History amlodipine 10 mg tablet 10 mg PO DAILY #30 tabs 09/14/22 03/28/24 03/28/24 Rx [id number] Bone Growth Stimulator #1 ea 02/03/23 03/22/24 Unknown Rx toxicology clearance #1 ea 05/01/23 03/22/24 Unknown Rx Allergies Allergy/AdvReac Type Severity Reaction Status Date / Time Latex gloves Allergy Mild Itchy and Uncoded 03/22/24 11:48 break out [facility] Anesthesia Medical History Psychiatric care Amphetamine abuse Lactic acid acidosis Hypothalamic hypothyroidism Hypertension Arthritis History of cataract Anxiety Lumbar disc disease with radiculopathy Chronic cholecystitis Surgical History History of tubal ligation Social History Smoking and tobacco/nicotine status: current every day tobacco/nicotine user Second hand smoke exposure: Yes Alcohol intake: never Substance/Drug Use: never Data Anesthesia Cardiac Studies: Echocardiogram 09/11/22
[2024-03-29] MEDS: sodium chloride 0.9% 1,000 ML 30 ML IV (07:55)
--- NOTE | 2024-03-29 08:44 | W.PM.OPSUD ---
Surgery/Procedure H&P Update DATE OF PROCEDURE: March 29, 2024 DATE H&P PERFORMED: 03/22/24 H&P UPDATE INFORMATION: I have reviewed H&P completed within last 30 days, I have examined patient prior to procedure, No changes to prior documentation and H&P is in [facility] EMR on date indicated PREOP DIAGNOSIS: Right bimalleolar fracture PLANNED PROCEDURE: Operation Date: 03/29/24 08:55 Proposed Procedures p ORIF Ankle ORIF Bimalleolar Fracture(Right) - Constantine Edwards DPM
[2024-03-29] MEDS: ceFAZolin 2,000 mg SDV 2000 MG IVP (08:55)
--- NOTE | 2024-03-29 09:00 | ANES.PROC ---
Anesthesia Procedures Procedure/Date: 03/29/24 Nerve Block ^: Nerve Block 1: Main Anesthesia: general anesthesia Time Out Performed: Yes Consent: requested by attending/covering physician and from patient Nerve block location: popliteal Anesthesia monitors applied: pulse oximetry, EKG, BP cuff and oxygen Nerve block position: supine Anesthetic Used: ropivicaine 0.5% Amount of anesthesia used (mL): 30 Ultrasound used to: recognize landmarks Interscalene/Femoral BLK: other needle (pjunk 4inch ) and visualize local anesthetic spread Injection: neg aspiration of heme Patient Tolerated Procedure: well Complications: none
--- NOTE | 2024-03-29 10:09 | P.OP_ITS ---
Operative Report Date of procedure: March 29, 2024 Pre-op diagnosis: ?S82.841A - Displaced bimalleolar fracture of right lower leg Post-op diagnosis: ?S82.841A - Displaced bimalleolar fracture of right lower leg Procedure done: Open reduction internal fixation right bimalleolar fracture CPT code 04511 Implants: [place] anatomic fibular plate with 3.5 mm locking screws [place] 3.5 mm cannulated screws x 2 at medial malleolus 2-0 Vicryl 3-0 Vicryl 4-0 nylon Skin shanna Specimens removed/disposition: None Pathology: None Surgeon: Constantine Edwards DPM Veterinarian: Veena Estimated blood loss: 10 mL 44 minutes IV fluids: See intraoperative documentation Urine output: None Complications: No complications Brief History: 58-year-old female with a history of knee surgeries presenting with a right ankle bimalleolar fracture incurred due to a fall. The fracture is characterized by instability with swelling and requires surgical fixation. The patient is scheduled for surgical intervention one week post-injury. The absence of concomitant injuries is noted, and the patient's history of knee surgeries and past substance use is considered in the management and surgical planning. 1. Right Ankle Bimalleolar Fracture The patient requires surgical intervention due to the unstable nature of the fracture. The plan includes outpatient surgery next Monday with pre-approval from insurance already underway. Pre-operative instructions have been provided, including necessary pre-surgical fasting. The fracture necessitates intraoperative fixation with plates and screws. The patient will be administered a nerve block prior to surgery to manage postoperative pain, and will commence aspirin therapy the morning after surgery to prevent thromboembolism. I reviewed at length with the patient, the risks, potential complications, benefits, alternatives, expectations, and typical outcomes associated with the surgery. The risks and potential complications were explained in detail, including but not limited to infection, wound dehiscence or soft tissue complications, bleeding and hematoma, chronic edema, neuritis or nerve damage producing numbness or chronic pain, CRPS, failure to relieve pain or worsening pain, thick / painful / unsightly scar, limited motion / stiffness, malposition, delayed union, malunion, or nonunion, fracture, reaction to implants, anesthetic complications, venous thromboembolism, and deformity recurrence. I discussed the notion of no regrets with the patient as it pertains to complications and outcomes. The patient seemed to understand the nature of the proposed care and required convalescence. They asked appropriate questions, answered to their satisfaction. They are aware no guarantees can be made as to a satisfactory outcome and they understand there may be other possible unforeseen complications or outcomes not listed here that will be treated accordingly if they arise. There were no written or implied guarantees given to the patient. They gave informed consent to proceed. Procedure: Under mild sedation the patient was brought to the operating room and placed onto the operating table in supine position. A timeout was performed. Ane sthesia was then administered by the anesthesia service. Of note right popliteal block was performed preoperatively by the anesthesia service. Well- padded pneumatic tourniquet applied to the right high calf. The right lower extremity was scrubbed, prepped and draped utilizing normal aseptic technique. Right foot and ankle were exanguinated with an Esmarch bandage and tourniquet was inflated to 250 mmHg. Attention was directed to the right ankle, skin was intact. Incision planning performed at the lateral and medial malleolus. Lateral malleolus was palpated directly over the distal fibula and a linear longitudinal incision was made just lateral to the fibula through skin with dissection carried down through subcutaneous tissue to the layer periosteum and fracture hematoma, care was t aken to retract and preserve neurovascular and tendinous structures. All bleeders were ligated and cauterized as necessary. Fracture was distracted and curettage of his hematoma followed by saline flush. Comminution of the lateral malleolus was appreciated this was reduced and fixated utilizing standard AO technique this was fixated with a [place] anatomic fibular plate 9 hole and 3.5 mm locking screws with excellent bony apposition and compression noted, the fibula is pulled out to length and the rotated without angular deformity this was confirmed with AP, oblique and lateral views with intraoperative C arm, fixation of the lateral malleolus did not violate the ankle mortise also confirmed with C arm. Medial malleolus was fixated percutaneously with 3.5 millimeter screws x 2 and 50 mm in length with excellent bony apposition and compression noted. AP, oblique and lateral view confirmed that the 3.5 millimeter screws did not violate the ankle mortise. Cotton hook test demonstrated intact syndesmosis. Smooth range of motion at the right ankle postoperatively. Incisions were irrigated and medial incision closed with 4-0 nylon. Lateral incision closed in a layered fashion with 2-0 Vicryl, 3-0 Vicryl and skin shanna. Incisions were dressed with Adaptic, sterile 4 x 4's, Kerlix and [place]rey wrap followed application of a cam boot to the right lower extremity. Tourniquet was deflated and a prompt hyperemic response is noted to the distal digits of the right foot. Patient tolerated the procedure and anesthesia well and was transferred to the PACU with vital signs stable and vascular status intact. Following a period of postoperative monitoring she will be discharged home. Patient will require a wheelchair with leg rest, she is not a candidate for crutches due to or upper body strength and shoulder pain. She is a fall risk and is required to remain strict nonweightbearing to the right lower extremity status post ORIF right bimalleolar fracture performed 03/29/2024. Failure to receive a wheelchair will increased risk for future harm, following, delayed healing.
--- NOTE | 2024-03-29 11:21 | ANE.PACU2 ---
Inpatient post-anesthesia follow up: Airway intact: Yes Vital signs: Temperature 97.0 F Pulse Rate 72 Respiratory Rate 18 Blood Pressure 138/91 Pulse Oximetry 95 Oxygen Delivery Me thod Room Air Oxygen Flow Rate 6 Fraction of Inspir ed Oxygen Hydration adequate: Yes Nausea and vomiting: No Pain level: 1 Mental status: Baseline
--- NOTE | 2024-03-29 14:28 | XR_ITS ---
WS: [id number] Right ankle, C-arm fluoroscopy views, 03/29/2024 Clinical Data: OR PIC, ORIF ANKLE Comparison: Right ankle, 03/21/2024 Findings: Dr. Edwards reduced the bimalleolar fracture with a lateral plate to the fibula and oblique screws in the medial malleolus of the right ankle. XR/XR ankle RT 2V [id number] Impression: Internal fixation of bimalleolar fracture of the right ankle.
== END 2024-03-29 11:22 | disposition home or self-care (01) ==
PROVIDERS: PCP Nurse Practitioner Family; Visit Provider Podiatrist Foot & Ankle Surgery
PROC: (CPT 27814; principal; 2024-03-29 08:45)
DX: S82.841A Displaced bimalleolar fracture of right lower leg, initial encounter for closed fracture (principal); X58.XXXA Exposure to other specified factors, initial encounter; I10 Essential (primary) hypertension; F15.91 Other stimulant use, unspecified, in remission; F41.9 Anxiety disorder, unspecified; F17.200 Nicotine dependence, unspecified, uncomplicated
CPT/HCPCS: 27814; 73600; 76000; C1713; J0690; J1100; J2371; J2405; J2704; J3010; J3490; J7030

== ENCOUNTER → 2024-04-11 14:21 | Outpatient (BNVA) | payer MEDICAID, SELFPAY | PROVIDERS: PCP Nurse Practitioner Family; Visit Provider Podiatrist Foot & Ankle Surgery | DX: Z98.890 Other specified postprocedural states; Z87.81 Personal history of (healed) traumatic fracture; S82.841D Displaced bimalleolar fracture of right lower leg, subsequent encounter for closed fracture with routine healing; X58.XXXD Exposure to other specified factors, subsequent encounter | CPT/HCPCS: 73610 ==

== ENCOUNTER → 2024-05-07 09:09 | Outpatient (BNVA) | payer MEDICAID, SELFPAY | PROVIDERS: PCP Nurse Practitioner Family; Visit Provider Podiatrist Foot & Ankle Surgery | DX: S82.841D Displaced bimalleolar fracture of right lower leg, subsequent encounter for closed fracture with routine healing; W10.8XXD Fall (on) (from) other stairs and steps, subsequent encounter; Z98.890 Other specified postprocedural states; R03.0 Elevated blood-pressure reading, without diagnosis of hypertension | CPT/HCPCS: 73610 ==

== ENCOUNTER 2024-05-17 07:03 | Day surgery (SDC) | payer MEDICAID, SELFPAY ==
[2024-05-17] VITALS (10 sets, daily range): BP systolic 135–179; BP diastolic 87–108; PULSE 68–96; RESP 14–17; TEMP 36.1–36.4; O2SAT 96–100; BMI 37.2
--- NOTE | 2024-05-17 | XR_ITS ---
WS: [id number] Exam: XR ankle RT 2V [id number] Date/Time of Exam: 05/17/2024 12:00 AM Reason For Exam: PERNELL PICS Comparison 05/07/2024. AP and lateral intraoperative images of the RIGHT ankle are submitted. Fracture hardware of the media l malleolus has been revised with plate and screw fixation. Also a long orthopedic screw is positione d in the fibular sideplate. The screw bridges the tibiofibular syndesmosis. Fractures appear stable i n appearance.
--- NOTE | 2024-05-17 06:27 | ANES.PREANE2 ---
Pre-Anesthetic Assessment Height/Weight: Height 5 ft 3 in Preop Diagnosis: Right ankle bimalleolar fracture Operation Date: 05/17/24 08:00 Proposed Procedures p Deep hardware removal right ankle(Right) - Constantine Edwards DPM s ORIF Ankle ORIF Medial Malleolus(Right) - Constantine Edwards DPM Was Beta Hugo taken within 24 hours: N/A Was Clonidine taken within 24 hours: N/A Social No alcohol and No tobacco Exam alert, oriented x 3, clear to auscultation bilaterally and regular rate & rhythm Airway Submandibular: within normal limits Cervical ROM: within normal limits Mallampati: Class II Dentition: other (Edentulous) Anesthetic Plan ASA status: 3 Other: No prior issues with anesthesia NPO since yesterday Prior amphetamine use, talk screen negative History of hypertension on amlodipine Chronic hydrocodone Plan for general anesthesia with post induction nerve blocks Medications/Allergies Home Medications Medication Instructions Recorded Confirmed Last Taken Type loratadine 10 mg tablet (Claritin) 10 mg PO DAILY 11/05/19 05/17/24 05/16/24 History duloxetine 30 mg capsule,delayed 30 mg PO DAILY 09/10/22 05/17/24 05/16/24 History release fluoxetine 20 mg capsule 20 mg PO DAILY 09/10/22 05/17/24 05/16/24 History gabapentin 100 mg capsule 100 mg PO TID 09/10/22 05/17/24 05/16/24 History amlodipine 10 mg tablet 10 mg PO DAILY #30 tabs 09/14/22 05/17/24 05/16/24 Rx E0748 Bone Growth Stimulator #1 ea 02/03/23 05/17/24 05/16/24 Rx toxicology clearance #1 ea 05/01/23 05/17/24 05/16/24 Rx hydrocodone 10 mg-acetaminophen 1 tab PO Q6H PRN pain 7 days #28 05/16/24 Unknown Rx 325 mg tablet tabs Allergies Allergy/AdvReac Type Severity Reaction Status Date / Time latex Allergy Mild Itchy and Verified 05/16/24 11:55 break out REPLACED BY [facility] Anesthesia Medical History Amphetamine abuse Lactic acid acidosis Hypothalamic hypothyroidism Hypertension Arthritis History of cataract Anxiety Lumbar disc disease with radiculopathy Chronic cholecystitis Surgical History History of tubal ligation Social History Smoking and tobacco/nicotine status: never used tobacco/nicotine Second hand smoke exposure: Yes Alcohol intake: never Substance/Drug Use: never Data Anesthesia Cardiac Studies: Echocardiogram 09/11/22
[2024-05-17] MEDS: sodium chloride 0.9% 1,000 ML 30 ML IV (07:31)
--- NOTE | 2024-05-17 07:35 | P.HPUD_ITS ---
Surgery/Procedure H&P Update DATE OF PROCEDURE: May 17, 2024 DATE H&P PERFORMED: 05/07/24 H&P UPDATE INFORMATION: I have reviewed H&P completed within last 30 days, I have examined patient prior to procedure, No changes to prior documentation and H&P is in [facility] EMR on date indicated PREOP DIAGNOSIS: Right medial malleolus fracture PLANNED PROCEDURE: Operation Date: 05/17/24 08:00 Proposed Procedures p Deep hardware removal right ankle(Right) - Constantine Edwards DPM s ORIF Ankle ORIF Medial Malleolus(Right) - Constantine Edwards DPM
[2024-05-17 07:46] LABS: OR HCG Qualitative Urine Negative (Negative)
[2024-05-17 07:50] LABS: Amphetamines Screen Urine Negative (Negative); Barbiturates Screen Urine Negative (Negative); Benzodiazepines Screen Urine Negative (Negative); Cocaine Screen Urine Negative (Negative); Opiate Screen Urine Negative (Negative); PCP Screen Urine Negative (Negative); THC Screen Urine Negative (Negative)
--- NOTE | 2024-05-17 07:55 | P.OP_ITS ---
Operative Report Date of procedure: May 17, 2024 Pre-op diagnosis: Closed bimalleolar fracture of right ankle, initial encounter S82.841A Painful hardware T84.84 Post-op diagnosis: Closed bimalleolar fracture of right ankle, initial encounter S82.841A Painful hardware T84.84 Procedure done: 1) deep hardware removal right ankle. CPT code 72449 2) open reduction internal fixation right medial malleolus. CPT code 52961 Implants: [place] hook plate with 3.5 millimeter screws, 3-0 Vicryl, skin shanna, [place] syndesmotic screw react 3.5 mm x 55 mm with 14 mm fibular component Surgeon: Constantine Edwards DPM Inspector Hairspring Truing: Luis Estimated blood loss: 5mL 101 minutes IV fluids: See intraoperative documentation Urine output: 0 Complications: None Brief History: - Imaging: X-rays demonstrate the right ankle's two screws are no longer aligned appropriately with the bone fragment, affecting joint alignment. Medial malleolus displacement laterally and lateral talar shift, increased tib-fib clear space right ankle. Assessment and Plan 58-year-old female with the history of right bimalleolar fracture presenting with concerns of post-surgical misalignment. Recent x-rays show that the screws have shifted, compromising the joint alignment, which presents a significant setback in her recovery process. The patient's prior surgical outcomes appeared favorable, but current imaging reveals the necessity for potential surgical intervention to prevent further complications and ensure proper joint function. 1. Right Bimalleolar Fracture Misalignment The decision is to proceed with surgical intervention due to misalignment of the ankle joint and screws. The plan includes removal of the existing screws and placement of a hook plate for stronger fixation. A long screw will be added to ensure stability. Surgery is tentatively scheduled for the earliest possible availability, with plans to start definitive action the following Monday. Pre- operative instructions provided, focusing on non-weight bearing status until the corrective procedure. The patient has been advised on the limitations of activity to avoid further strain on the injury. Procedure: Under mild sedation the patient was brought to the operating room and placed onto the operating table in supine position. A timeout was performed. A nesthesia was then administered by the anesthesia service. Of note right popliteal block and adductor block performed preoperatively per anesthesia to the right lower extremity. Well-padded pneumatic tourniquet applied to the right high calf. Right lower extremity was scrubbed, prepped and draped utilizing normal aseptic technique. Right foot and ankle were then exanguinated with an Esmarch bandage and tourniquet inflated to 250 mmHg. Attention was directed to the medial malleolus where a curvilinear incision was performed through skin directly over the distal aspect of the medial malleolus coursing proximally with a #15 blade with dissection carried down through subcutaneous tissue to the layer periosteum utilizing a combination of sharp and blunt technique. Care was taken to retract and preserve neurovascular and tendinous structures. All bleeders were ligated and cauterized as necessary. Two 3 mm headed screws were removed in total without fragmentation or failure this was confirmed with intraoperative fluoroscopy. Attention was directed to a comminuted fracture of the medial malleolus of the right ankle where the fractures were distracted and curettage of hematoma they were then reduced to anatomic position and temporarily fixated utilizing a K wire. Next utilizing standard manufacture technique a [place] hook plate with airline transport pilot holes with 2.0 K wires followed by insertion of the hook plate which was then tamped into place maintaining anatomic reduction of the medial malleolus the hook plate was then fixated utilizing standard AO technique with 3.5 millimeter screws with excellent bony apposition and compression noted. On the AP, oblique and lateral view the medial malleolus was reduced and hardware did not violate the ankle mortise. Instability at syndesmosis appreciated with cotton test, syndesmotic screw from lateral to medial with ankle joint neutral position with excellent bony apposition and compression noted was a [place] react screw 55 mm in length 3.5 mm diameter. Excellent placement of syndesmotic screw proximal to the ankle mortise and not violating the mortise confirmation with AP oblique and lateral views with intraoperative C arm. Smooth range of motion of the ankle was appreciated intraoperatively and the ankle mortise was congruent. Incision was irrigated with saline solution, temporary fixation removed. Periosteum and deep structures reapproximated with 3-0 Vicryl, skin reapproximated with 4-0 nylon. Incision was then dressed with Adaptic, sterile 4 x 4's, Kerlix and Torrey wrap followed by application of well-padded multilayer compressive posterior splint with stirrup. Tourniquet was deflated and a prompt hyperemic response is noted to the distal digits of the right foot. Patient tolerated the procedure and anesthesia well and was transferred to the PACU with vital signs stable and vascular status intact. Following a period of postoperative monitoring she will be discharged home without home care instructions and scheduled follow-up was advised to remain strict nonweightbearing and elevate right foot while resting.
[2024-05-17] MEDS: ceFAZolin 2,000 mg SDV 2000 MG IVP (08:00)
--- NOTE | 2024-05-17 08:26 | ANES.PROC ---
Anesthesia Procedures Procedure/Date: 05/17/24 Nerve Block ^: Nerve Block 1: Main Anesthesia: general anesthesia Time Out Performed: Yes Consent: requested by attending/covering physician and from patient Nerve block location: popliteal Anesthesia monitors applied: pulse oximetry, EKG, BP cuff and oxygen Nerve block position: supine Anesthetic Used: ropivicaine 0.5% Amount of anesthesia used (mL): 25 Ultrasound used to: recognize landmarks Nerve Stimulator Used?: Yes Interscalene/Femoral BLK: other needle (pjunk 4inch) Injection: neg aspiration of heme Patient Tolerated Procedure: well Complications: none Additional Comments: decadron 4mg added to block
--- NOTE | 2024-05-17 08:27 | ANES.PROC ---
Anesthesia Procedures Procedure/Date: 05/17/24 Nerve Block ^: Nerve Block 2: Main Anesthesia: general anesthesia Time Out Performed: Yes Consent: requested by attending/covering physician and from patient Nerve block location: adductor canal Anesthesia monitors applied: pulse oximetry, EKG, BP cuff and oxygen Nerve block position: supine Anesthetic Used: ropivicaine 0.5% Amount of anesthesia used (mL): 15 Ultrasound used to: recognize landmarks Nerve Stimulator Used?: Yes Interscalene/Femoral BLK: other needle (pjunk 4inch) Injection: neg aspiration of heme Patient Tolerated Procedure: well Complications: none
[2024-05-17] MEDS: hyDRALAzine 20 mg/mL INJ 1 mL 5 MG IVP (09:45)
--- NOTE | 2024-05-17 09:51 | SUR.OPER ---
called dr east and notified him of increased bp results. obtained a verbal order for hydralazine 5mg IVP.
--- NOTE | 2024-05-17 10:43 | ANE.PACU2 ---
Inpatient post-anesthesia follow up: Airway intact: Yes Vital signs: Temperature 97.0 F Pulse Rate 96 Respiratory Rate 17 Blood Pressure 136/87 Pulse Oximetry 96 Oxygen Delivery Me thod Room Air Oxygen Flow Rate 6 Fraction of Inspir ed Oxygen Hydration adequate: Yes Nausea and vomiting: No Pain level: 1 Mental status: Baseline
== END 2024-05-17 10:43 | disposition home or self-care (01) ==
PROVIDERS: Student in an Organized Health Care Education/Training Program; PCP Nurse Practitioner Family; Visit Provider Podiatrist Foot & Ankle Surgery
PROC: (CPT 20680; principal; 2024-05-17 08:00)
PROC: (CPT 20680; 2024-05-17 08:00)
DX: T84.84XA Pain due to internal orthopedic prosthetic devices, implants and grafts, initial encounter (principal); S82.841A Displaced bimalleolar fracture of right lower leg, initial encounter for closed fracture; X58.XXXA Exposure to other specified factors, initial encounter; Y82.9 Unspecified medical devices associated with adverse incidents; I10 Essential (primary) hypertension; Z79.891 Long term (current) use of opiate analgesic
CPT/HCPCS: 20680; 27766; 73600; 76000; 80306; 81025; C1713; J0360; J0690; J1100; J2250; J2405; J2704; J3010; J7030

== ENCOUNTER → 2024-05-31 14:36 | Outpatient (BNVA) | payer MEDICAID, SELFPAY | PROVIDERS: PCP Nurse Practitioner Family; Visit Provider Podiatrist Foot & Ankle Surgery | DX: Z98.890 Other specified postprocedural states (principal); Z87.81 Personal history of (healed) traumatic fracture | CPT/HCPCS: 73610 ==

== ENCOUNTER → 2024-06-27 13:40 | Outpatient (BNVA) | payer MEDICAID, SELFPAY | PROVIDERS: PCP Nurse Practitioner Family; Visit Provider Podiatrist Foot & Ankle Surgery | DX: Z98.890 Other specified postprocedural states (principal); S82.841D Displaced bimalleolar fracture of right lower leg, subsequent encounter for closed fracture with routine healing; X58.XXXD Exposure to other specified factors, subsequent encounter | CPT/HCPCS: 73610 ==

== ENCOUNTER → 2024-07-12 13:57 | Outpatient (BNVA) | payer MEDICAID, SELFPAY | PROVIDERS: PCP Nurse Practitioner Family | DX: Z98.890 Other specified postprocedural states (principal) | CPT/HCPCS: 73610 ==

== ENCOUNTER 2024-07-15 13:42 | Emergency (ER) | payer MEDICAID, SELFPAY ==
[2024-07-15 13:46] VITALS: BP 142/82; PULSE 110; RESP 18; TEMP 38; O2SAT 94; BMI 37.9
--- NOTE | 2024-07-15 14:12 | XRR_ITS ---
PROCEDURE INFORMATION: Exam: XR Chest Exam date and time: 07/15/2024 2:14 PM Age: 59 years old Clinical indication: Pain; Angina pectoris; Additional info: Chest pain TECHNIQUE: Imaging protocol: Radiologic exam of the chest. Views: 1 view. COMPARISON: CR XR chest 1V portable [id number] 07/08/2019 5:08 PM FINDINGS: Lungs: Lung volumes are decreased with mild elevation left hemidiaphragm unchanged and presumed chronic. Lung cruz otherwise clear. No infiltrates or overt CHF. Pleural spaces: Unremarkable. No pleural effusion. No pneumothorax. Heart/Mediastinum: Unremarkable. No cardiomegaly. Bones/joints: No acute bony abnormalities detected. XR/XR chest 1V portable [id number] IMPRESSION: Stable chest. No active disease.
--- NOTE | 2024-07-15 14:45 | W.ED.URI ---
HPI - URI/Sore Throat General: Chief Complaint: Upper Respiratory Infection Stated Complaint: flu symptoms Time Seen by Provider: 07/15/24 14:44 Source: patient Mode of arrival: EMS Limitations: no limitations History of Present Illness: Patient is a 59-year-old female presents to ED today with influenza-like symptoms. She has had positive flu exposure as her was positive influenza A. Her list of complaints include fever, chills, body aches, fatigue, sore throat, nasal congestion, cough. MD elicited complaint: fever, cough, sore throat and nasal congestion Onset (ago): day(s) Consistency: constant Severity: moderate Description of mucous: clear Able to tolerate fluids by mouth: Yes Exacerbating factors: nothing Relieving factors: nothing Context: sick contacts ( known influenza A +) Associated symptoms: Reports chills, chest pain (from coughing), fever(s) and nasal congestion; Deny diarrhea, ear or mastoid pain, headache(s), sinus pain or vomiting Treatments prior to arrival: none Related Data Home Medications Medication Instructions Recorded Confirmed loratadine 10 mg tablet (Claritin) 10 mg PO DAILY 11/05/19 06/27/24 duloxetine 30 mg capsule,delayed 30 mg PO DAILY 09/10/22 06/27/24 release fluoxetine 20 mg capsule 20 mg PO DAILY 09/10/22 06/27/24 gabapentin 100 mg capsule 100 mg PO TID 09/10/22 06/27/24 Previous Rx's Medication Instructions Recorded amlodipine 10 mg tablet 10 mg PO DAILY #30 tabs 09/14/22 [id number] Bone Growth Stimulator #1 ea 02/03/23 toxicology clearance #1 ea 05/01/23 oseltamivir 75 mg capsule (Tamiflu) 75 mg PO BID 5 days #10 caps 07/15/24 Allergies Allergy/AdvReac Type Severity Reaction Status Date / Time latex Allergy Mild Itchy and Verified 06/27/24 13:38 break out Review of Systems Const: Reports: fever(s), chills, body aches and fatigue Eyes: Denies: change in vision, blurry vision, photophobia, eye discomfort or eye discharge ENMT: Reports: throat pain, odynophagia, nasal discharge and nasal congestion; Denies: enlarged tonsils, swelling of lips/tongue, oral sores, ear or mastoid pain, ear discharge, post nasal drip or sinus pain Card: Reports: chest pain (from coughing); Denies: palpitations, irregular heart rhythm, edema, swelling of feet/ankles, lightheadedness, syncope, pre-syncope, orthopnea, leg pain with exertion or acrocyanosis Resp: Reports: non-productive cough, pain on inspiration and chest congestion; Denies: dyspnea, productive cough, wheezing or hemoptysis GI: Denies: vomiting or diarrhea Musc: Denies: neck pain, back pain, extremity pain, extremity swelling, joint pain or joint swelling Skin/Breast: Denies: rash Neuro: Denies: headache(s), numbness in extremities, weakness in extremities, sensory changes or dizziness All/Imm: Denies: facial swelling or seasonal rhinorrhea PFSH ED PFSH: Medical History Amphetamine abuse Lactic acid acidosis Hypothalamic hypothyroidism Hypertension Arthritis History of cataract Anxiety Lumbar disc disease with radiculopathy Chronic cholecystitis Surgical History History of tubal ligation Social History Smoking and tobacco/nicotine status: current every day tobacco/nicotine user Second hand smoke exposure: Yes Alcohol intake: never Substance/Drug Use: never Physical Exam Const: COMMON NORMALS: no acute distress, patient oriented x3, no limitations, alert and well nourished GENERAL APPEARANCE: cooperative ORIENTATION/CONSCIOUSNESS: Yes awake, Yes oriented to person, Yes oriented to place and Yes oriented to time HENMT: COMMON NORMALS: normocephalic, atraumatic, external ears normal, EAC's normal and TM's normal bilaterally HEAD & SCALP: normal to inspection, normocephalic and atraumatic FACE & SINUS: normal facial exam NOSE: Nasal discharge present EXTERNAL EAR: Yes external ears normal, Yes mastoids normal and Yes no periauricular adenopathy EXTERNAL AUDITORY CANAL: EAC's normal TYMPANIC MEMBRANE: TM's normal bilaterally MOUTH: Normal oral and palatal mucosa present and lip normal THROAT: posterior oropharynx normal and tonsils normal Eye: COMMON NORMALS: no scleral icterus GENERAL EYE: appearance normal, both eyes and all related structures Neck/C-Spine: COMMON NORMALS: full ROM, no lymphadenopathy, supple and no meningeal signs Chest: COMMONS NORMALS: normal inspection of the chest Resp: COMMON NORMALS: normal respiratory effort and clear to auscultation bilaterally AUSCULTATION: clear to auscultation bilaterally Cardio: COMMON NORMALS: regular rhythm RATE: tachycardic (patient febrile) RHYTHM: regular rhythm GI: COMMON NORMALS: Normal to inspection, nondistended, normoactive bowel sounds present, Soft to palpation, non-tender, No hepatosplenomegaly present and no masses PALPATION: Yes Soft to palpation and Yes No hepatosplenomegaly present : COMMON NORMALS: Yes no CVA tenderness BLADDER/KIDNEY EXAM: Yes no CVA tenderness Back/Pelvis: COMMON NORMALS: no CVA tenderness and thoracic and lumbar spine normal to inspection Extremity: COMMON NORMALS: normal to inspection, no clubbing, cyanosis or edema, no calf tenderness and no pedal edema GENERAL: Yes normal exam except as noted Neuro: TRACI COMA SCALE: document GCS findings Traci coma scale eye opening: Spontaneous Traci coma scale verbal response: Orientated Traci coma scale motor response: Obey commands Traci coma scale total score: 15 COMMON NORMALS: patient oriented x3 SENSORIUM/ORIENTATION: Yes alert, Yes oriented to person, Yes oriented to place and Yes oriented to time MENINGEAL SIGNS: Yes no meningeal signs Skin: COMMON NORMALS: no rashes or lesions noted GENERAL SKIN EXAM: no rashes or lesions noted Course Vital Signs: Vital signs: Vital Signs Temperature 100.4 F H 07/15/24 13:46 Pulse Rate 112 H 07/15/24 15:38 Respiratory Rate 18 07/15/24 13:46 Blood Pressure 142/82 07/15/24 13:46 Pulse Oximetry 95 07/15/24 15:38 Oxygen Delivery Me thod Room Air 07/15/24 15:38 MDM - URI/Sore Throat Medical Decision Making Patient here for flu like symptoms after being exposed to her who is flu A positive. She is positive on her swab today. Requesting Tamiflu. Return to ED precautions discussed. Otherwise we discussed conservative therapies at home. Differential Diagnosis Likely upper respiratory infection, viral infection, bronchitis and influenza Medical Records I reviewed the patient's medical records. Lab Data I reviewed the patient's lab results. Radiology Impressions Chest X-Ray 07/15/24 14:12 IMPRESSION: Stable chest. No active disease. Laboratory Results Coronavirus (PCR) Negative (Negative) 07/15/24 14:54 Influenza A (PCR) Positive (Negative) 07/15/24 14:54 Influenza Type B (PCR) Negative (Negative) 07/15/24 14:54 RSV (PCR) Negative (Negative) 07/15/24 14:54 All radiology interpretation(s) finalized by discharge Discharge Plan Discharge Patient Disposition: Home Clinical Impression: Influenza A Condition: Stable Prescriptions: New oseltamivir [Tamiflu] 75 mg capsule 75 mg PO BID 5 Days Qty: 10 0RF No Action (DME) E0748 Bone Growth Stimulator See Rx Instructions .Route .MEDSUPPLY Qty: 1 0RF Rx Instructions: As directed (DME) toxicology clearance See Rx Instructions .Route .MEDSUPPLY Qty: 1 0RF Rx Instructions: As directed loratadine [Claritin] 10 mg Tablet 10 mg PO DAILY gabapentin 100 mg capsule 100 mg PO TID fluoxetine 20 mg capsule 20 mg PO DAILY duloxetine 30 mg capsule,delayed release(DR/EC) 30 mg PO DAILY amlodipine 10 mg tablet 10 mg PO DAILY Qty: 30 0RF Discharge Orders: Discharge ED (Routine); Ordered 07/15/24 Ordered By: Crystal Lawson Referrals: Park Frances, QUILLER OPERATOR [Primary Care Provider] - Patient Instructions: Influenza (DC) Coding Level of Care Code ED [employer] Manager for Tabatha Mayer
[2024-07-15 15:38] VITALS: PULSE 112; O2SAT 95
[2024-07-15 15:39] LABS: Covid PCR NEGATIVE (Negative); Influenza A POSITIVE (Negative); Influenza B NEGATIVE (Negative); Respiratory Syncytial Virus Ce NEGATIVE (Negative)
[2024-07-15 16:38] VITALS: BP 143/88; PULSE 118; O2SAT 98
== END 2024-07-15 16:39 | disposition home or self-care (01) ==
PROVIDERS: Emergency Medicine; Emergency Provider Physician Assistant; PCP Nurse Practitioner Family
DX: J10.1 Influenza due to other identified influenza virus with other respiratory manifestations (principal); Z11.52 Encounter for screening for COVID-19; Z72.0 Tobacco use; I10 Essential (primary) hypertension
CPT/HCPCS: 71045; 87637; 99284

== ENCOUNTER → 2024-07-25 12:53 | Outpatient (BNVA) | payer MEDICAID, SELFPAY | PROVIDERS: PCP Nurse Practitioner Family; Visit Provider Podiatrist Foot & Ankle Surgery | DX: Z98.890 Other specified postprocedural states (principal); Z87.81 Personal history of (healed) traumatic fracture | CPT/HCPCS: 73610 ==

== ENCOUNTER 2024-08-05 10:24 | Emergency (ER) | payer MEDICAID, SELFPAY ==
[2024-08-05 10:49] VITALS: BP 140/69; PULSE 115; TEMP 37.4; O2SAT 95; BMI 36.6
[2024-08-05 11:15] LABS: Basophils % 0.3 %; Eosinophils % 0.1 %; Hematocrit 43.7 % (36-47); Mean Corpuscular Hemoglobin 29.6 pg (27-33); Mean Corpuscular Volume 92.4 fl (85-98); Mean Platelet Volume 11.3 fL (7.4-10.4); Monocytes # 0.8 10^3/uL (0.2-0.9); Monocytes % 9.1 %; Neutrophils # 5.83 10^3/uL (1.8-7.7); Neutrophils % 67.3 %; Nucleated Red Blood Cells % 0 %; Platelet Count 518 10^3/cmm (157-399); Red Blood Count 4.73 10^6/uL (3.85-5.65); Red Cell Distribution Width 14.3 % (12.1-15.1); White Blood Count 8.67 10^3/uL (3.29-11.43)
[2024-08-05 11:34] LABS: Alanine Aminotransferase 8 U/L (0-33); Albumin Level 3.8 g/dL (3.5-5.2); Alkaline Phosphatase 127 U/L (35-105); Anion Gap 16.5 (5-19); Aspartate Amino Transferase 9 U/L (0-32); Blood Urea Nitrogen 19 mg/dL (6-20); Calcium 9.2 mg/dL (8.5-10.5); Carbon Dioxide 25 mmol/L (22-29); Chloride 99 mmol/L (98-107); Glomerular Filtration Rate 64.1 mL/min (90-130); Glucose 126 mg/dL (65-115); Lipase 16 U/L (13-60); Osmolality Calculated 286 mOsm/kg (285-295); Potassium 4.5 mmol/L (3.5-5.1); Sodium 136 mmol/L (136-145); Total Bilirubin 0.6 mg/dL (0.15-1.2); Total Protein 7.8 g/dL (6.6-8.7)
[2024-08-05 11:51] VITALS: BP 153/93; PULSE 110; RESP 16; O2SAT 94
[2024-08-05 11:54] LABS: Influenza A NEGATIVE (Negative); Influenza B NEGATIVE (Negative); Respiratory Syncytial Virus Ce NEGATIVE (Negative); SARS-CoV-2 PCR NEGATIVE (Negative)
--- NOTE | 2024-08-05 12:01 | ED_ITS ---
HPI - Abdominal Pain 2 General: Chief Complaint: Abdominal Pain Stated Complaint: abd pain, stuff head Time Seen by Provider: 08/05/24 11:34 Source: patient Mode of arrival: ambulatory Limitations: no limitations History of Present Illness: 59-year-old female presents to the ER co mplaining of abdominal pain, diarrhea, not feeling well. Patient states she has been having intermittent diarrhea since the flu earlier this month. Finished Tamiflu. [place] like symptoms were improving but then ate [place] 4 days ago and now abdominal pain/diarrhea is worse. Patient describes her abdominal pain as dull and achy and denies any sharp, stabbing, or burning pain. She said she has not had an appetite for the past 2 days and this morning when she was drinking Sprite she had to vomit. Patient admits to flank pain and dark urine. Patient denies fever, body ache, headache, hematochezia, dysuria, chest pain, shortness of breath. MD elicited complaint: abdominal pain and flank pain Onset (ago): day(s) Pain Consistency: constant Location: Epigastric, RLQ, LLQ and L flank Severity: moderate Quality: cramping, aching and dull Radiation: bilateral flank Migration to: no migration Exacerbating factors: nothing Relieving factors: nothing Associated Symptoms: Reports GI cramping, diarrhea, poor appetite and vomiting; Denies chills, dysuria, fever(s), hematochezia, hematuria, hematemesis and melena Related Data Home Medications ?Medication ?Instructions ?Recorded ?Confirmed loratadine 10 mg tablet (Claritin) 10 mg PO DAILY 10/1108/05/24 duloxetine 30 mg capsule,delayed 30 mg PO DAILY 08/05/24 release fluoxetine 20 mg capsule 20 mg PO DAILY 09/10/2207/14 gabapentin 100 mg capsule 100 mg PO TID 09/10/2208/05 Previous Rx's ?Medication ?Instructions ?Recorded amlodipine 10 mg tablet 10 mg PO DAILY #30 tabs 11/01 E0748 Bone Growth Stimulator #1 ea 02/03/23 toxicology clearance #1 ea 05/01/23 ASO to right #1 ea 07/25/24 ciprofloxacin HCl 500 mg tablet 500 mg PO Q12H #14 tab s 08/05/24 (Cipro) metronidazole 500 mg tablet 500 mg PO BID 7 days #14 t abs 08/05/24 ondansetron 4 mg disintegrating 4 mg PO Q8H PRN nausea and 08/05/24 tablet vomiting #14 tabs Allergies Allergy/AdvReac Type Severity Reaction Status Date / Time latex Allergy Mild Itchy and Verified 08/05/24 10:52 break out Review of Systems 2 Const: Reports: change in appetite; Denies: fever(s), chills or body aches ENMT: Denies: throat pain, odynophagia, nasal discharge, nasal congestion or sinus pain Card: Denies: chest pain or palpitations Resp: Reports: dyspnea and non-productive cough; Denies: wheezing or chest congestion GI: Reports: abdominal pain, vomiting, diarrhea and GI cramping; Denies: hematemesis, hematochezia or melena : Reports: flank pain and dribbling (chronic); Denies: difficulty voiding, dysuria or hematuria Musc: Reports: back pain; Denies: neck pain, extremity pain, extremity swelling, joint swelling or joint redness Skin/Breast: Denies: rash Neuro: Denies: headache(s) or dizziness PFSH ED 2 PFSH: Medical History Amphetamine abuse Lactic acid acidosis Hypothalamic hypothyroidism Hypertension Arthritis History of cataract Anxiety Lumbar disc disease with radiculopathy Chronic cholecystitis Surgical History History of tubal ligation Social History Smoking and tobacco/nicotine status: current every day tobacco/nicotine user Second hand smoke exposure: Yes Alcohol intake: never Substance/Drug Use: never Physical Exam 2 Const: COMMON NORMALS: no acute distress, patient oriented x3, no limitations, alert and well nourished GENERAL APPEARANCE: cooperative NUTRITIONAL APPEARANCE: overweight ORIENTATION/CONSCIOUSNESS: Yes awake, Yes oriented to person, Yes oriented to place and Yes oriented to time Resp: COMMON NORMALS: normal respiratory effort and clear to auscultation bilaterally AUSCULTATION: clear to auscultation bilaterally Cardio: COMMON NORMALS: regular rhythm RATE: tachycardic RHYTHM: regular rhythm GI: COMMON NORMALS: Normal to inspection, nondistended, normoactive bowel sounds present, Soft to palpation, No hepatosplenomegaly present and no masses INSPECTION: Yes normal to inspection AUSCULTATION: Yes normoactive bowel sounds PALPATION: Yes Soft to palpation, Yes Tenderness to palpation present (GI) (L), No Guarding due to palpation present (GI), No Rigid due to palpation and Yes No hepatosplenomegaly present : BLADDER/KIDNEY EXAM: Yes CVA tenderness on the left Back/Pelvis: GENERAL BACK: Yes CVA tenderness Extremity: COMMON NORMALS: capillary refill normal, no clubbing, cyanosis or edema, no calf tenderness and no pedal edema GENERAL: Yes normal exam except as noted Neuro: COMMON NORMALS: patient oriented x3 SENSORIUM/ORIENTATION: Yes alert, Yes oriented to person, Yes oriented to place and Yes oriented to time Skin: COMMON NORMALS: no rashes or lesions noted GENERAL SKIN EXAM: no rashes or lesions noted Course 2 Vital Signs: Vital signs: Vital Signs Temperature 99.4 F 08/05/24 10:49 Pulse Rate 110 H 08/05/24 11:51 Respiratory Rate 18 08/05/24 13:41 Blood Pressure 122/82 08/05/24 15:07 Pulse Oximetry 90 08/05/24 15:07 Oxygen Delivery Me thod Room Air 08/05/24 10:49 MDM - Abdominal Pain Medical Decision Making Patient is a 59-year-old female here with a main concern of abdominal pain and diarrhea. She was slightly tachycardic upon arrival. Oxygen borderline low at times. She did complain of shortness of breath. She did have influenza few weeks ago. Mildly elevated D-dimer. CT imaging of her chest abdomen/pelvis was obtained. She has no PE. She does have acute colitis. Patient will be placed on Cipro and Flagyl. She will be given something to help with her nausea. Recommend bland liquid diet and advancing as tolerated. CT scan did comment on a possible spasm versus stricture of her left descending colon. Will have her follow-up with general surgery for evaluation for possible colonoscopy after colitis resolution. Return precautions given. Medical Records I reviewed the patient's medical records. Lab Data I reviewed the patient's lab results. 08/05/24 11:07 08/05/24 11:07 Labs/Radiology: Radiology Impressions Chest X-Ray 08/05/24 12:31 IMPRESSION: No acute cardiopulmonary disease. Chest/Abdomen/Pelvis CT 08/05/24 13:43 IMPRESSION: 1. No evidence of pulmonary embolus. 2. Shallow inspiration with bibasilar atelectasis. 3. Acute colitis involving the distal transverse and hepatic flexure colon with wall thickening and surrounding induration. 4. Focal transition to normal caliber descending colon in the mid LEFT descending colon may be due to spasm or stricture. Recommend follow-up with colonoscopy after colitis resolution. 5. Fibroid uterus. 6. Enlarged thyroid 7. Small esophageal hiatal hernia with air-fluid level. Laboratory Results WBC 8.67 10^3/uL (3.29-11.43) 08/05/24 11:07 RBC 4.73 10^6/uL (3.85-5.65) 08/05/24 11:07 Hgb 14.00 g/dL (11.27-16.99) 08/05/24 11:07 Hct 43.7 % (36-47) 08/05/24 11:07 MCV 92.4 fl (85-98) 08/05/24 11:07 MCH 29.6 pg (27-33) 08/05/24 11:07 MCHC 32.0 g/dL (30-55) 08/05/24 11:07 RDW 14.3 % (12.1-15.1) 08/05/24 11:07 Plt Count 518 10^3/cmm (157-399) H 08/05/24 11:07 MPV 11.3 fL (7.4-10.4) H 08/05/24 11:07 Neut % (Auto) 67.3 % 08/05/24 11:07 Lymph % (Auto) 23.0 % 08/05/24 11:07 [place] % (Auto) 9.1 % 08/05/24 11:07 Eos % (Auto) 0.1 % 08/05/24 11:07 Baso % (Auto) 0.3 % 08/05/24 11:07 Neut # (Auto) 5.83 10^3/uL (1.8-7.7) 08/05/24 11:07 Lymph # (Auto) 2.0 10^3/uL (0.8-4.8) 08/05/24 11:07 [place] # (Auto) 0.8 10^3/uL (0.2-0.9) 08/05/24 11:07 Eos # (Auto) 0.0 10^3/uL (0.0-0.8) 08/05/24 11:07 Baso # (Auto) 0.0 10^3/uL (0.0-0.1) 08/05/24 11:07 Nucleated RBC % (auto) 0 % 08/05/24 11:07 Nucleated RBCs # 0.0 /100WBC 08/05/24 11:07 D-Dimer 0.76 ug/mLFEU (0-0.59) H 08/05/24 11:07 Sodium 136 mmol/L (136-145) 08/05/24 11:07 Potassium 4.5 mmol/L (3.5-5.1) 08/05/24 11:07 Chloride 99 mmol/L (98-107) 08/05/24 11:07 Carbon Dioxide 25 mmol/L (22-29) 08/05/24 11:07 Anion Gap 16.5 (5-19) 08/05/24 11:07 BUN 19 mg/dL (6-20) 08/05/24 11:07 Creatinine 0.9 mg/dL (0.5-0.9) 08/05/24 11:07 GFR Calculation 64.1 mL/min (90-130) L 08/05/24 11:07 Glucose 126 mg/dL (65-115) H 08/05/24 11:07 Calculated Osmolality 286 mOsm/kg (285-295) 08/05/24 11:07 Calcium 9.2 mg/dL (8.5-10.5) 08/05/24 11:07 Total Bilirubin 0.6 mg/dL (0.15-1.2) 08/05/24 11:07 AST 9 U/L (0-32) 08/05/24 11:07 ALT 8 U/L (0-33) 08/05/24 11:07 Alkaline Phosphatase 127 U/L (35-105) H 08/05/24 11:07 Total Protein 7.8 g/dL (6.6-8.7) 08/05/24 11:07 Albumin 3.8 g/dL (3.5-5.2) 08/05/24 11:07 Globulin 4.0 g/dL (1.3-4.6) 08/05/24 11:07 Lipase 16 U/L (13-60) 08/05/24 11:07 Urine Color Dark yellow (Yellow) A 08/05/24 12:11 Urine Appearance Cloudy (CLEAR) A 08/05/24 12:11 Urine pH 5.5 (5-7) 08/05/24 12:11 Ur Specific [place] 1.033 (1.005-1.030) H 08/05/24 12:11 Urine Protein 2+ (Negative) A 08/05/24 12:11 Urine Glucose (UA) Negative (Normal) 08/05/24 12:11 Urine Ketones Trace (Negative) 08/05/24 12:11 Urine Blood Negative (Negative) 08/05/24 12:11 Urine Nitrate Negative (Negative) 08/05/24 12:11 Urine Bilirubin 1+ (Negative) H 08/05/24 12:11 Urine Urobilinogen 1.0 mg/dL (Negative) 08/05/24 12:11 Ur Leukocyte Esterase Negative (Negative) 08/05/24 12:11 Urine RBC None /hpf (0-2) 08/05/24 12:11 Urine WBC 0-4 /hpf (0-5) H 08/05/24 12:11 Ur Squamous Epith Cells 10-15 /hpf (0-5) H 08/05/24 12:11 Amorphous Sediment Not Reportable 08/05/24 12:11 Urine Bacteria 1+ /hpf (NONE) H 08/05/24 12:11 Urine Mucus None /hpf 08/05/24 12:11 Influenza A (PCR) Negative (Negative) 08/05/24 10:55 Influenza Type B (PCR) Negative (Negative) 08/05/24 10:55 RSV (PCR) Negative (Negative) 08/05/24 10:55 SARS-CoV-2 (PCR) Negative (Negative) 08/05/24 10:55 All radiology interpretation(s) finalized by discharge Discharge Plan Discharge Patient Disposition: Home Clinical Impression: Colitis Condition: Stable Prescriptions: New metronidazole 500 mg tablet 500 mg PO BID 7 Days Qty: 14 0RF ciprofloxacin HCl [Cipro] 500 mg tablet 500 mg PO Q12H Qty: 14 0RF ondansetron 4 mg tablet,disintegrating 4 mg PO Q8H PRN (Reason: nausea and vomiting) Qty: 14 0RF No Action (DME) ASO to right See Rx Instructions .Route .MEDSUPPLY Qty: 1 0RF Rx Instructions: As directed (DME) E0748 Bone Growth Stimulator See Rx Instructions .Route .MEDSUPPLY Qty: 1 0RF Rx Instructions: As directed (DME) toxicology clearance See Rx Instructions .Route .MEDSUPPLY Qty: 1 0RF Rx Instructions: As directed loratadine [Claritin] 10 mg Tablet 10 mg PO DAILY gabapentin 100 mg capsule 100 mg PO TID fluoxetine 20 mg capsule 20 mg PO DAILY duloxetine 30 mg capsule,delayed release(DR/EC) 30 mg PO DAILY amlodipine 10 mg tablet 10 mg PO DAILY Qty: 30 0RF Discharge Orders: Discharge ED (Routine); Ordered 08/05/24 Ordered By: Crystal Lawson Referrals: Park Frances FNP [Primary Care Provider] - Patient Instructions: Colitis (ED) Activity Restrictions/Additional Instructions: As we discussed, your CT scan is showing colitis which is an infection/inflammatory condition involving your colon. We are placing you on antibiotics for this. I want you to do a bland liquid diet over the next 48 hours and slowly advance this as tolerated. You may use the Zofran as needed for nausea. You need to return to the emergency department for worsening abdominal pain, fevers, repetitive episodes of vomiting, inability to have a bowel movement or pass gas, or any other concerns you may have. As we discussed, we will have case management set you up with general surgery for further evaluation to make sure episode resolves and to evaluate you for the need for a possible colonoscopy. Print Language: Tajik Coding Level of Care Code ED Transaction Processor for Tabatha Mayer
[2024-08-05 12:30] VITALS: BP 156/98; O2SAT 93
--- NOTE | 2024-08-05 12:31 | XRR_ITS ---
PROCEDURE INFORMATION: Exam: XR Chest Exam date and time: 08/05/2024 12:32 PM Age: 59 years old Clinical indication: Cough and shortness of breath; Additional info: Cough/sob TECHNIQUE: Imaging protocol: Radiologic exam of the chest. Views: 1 view. COMPARISON: CR XR chest 1V portable [id number] 07/15/2024 2:14 PM FINDINGS: Lungs: Unremarkable. No consolidation. Pleural spaces: Unremarkable. No pleural effusion. No pneumothorax. Heart/Mediastinum: Unremarkable. No cardiomegaly. Diaphragm: Elevated left hemidiaphragm. Bones/joints: Unremarkable. XR/XR chest 1V portable [id number] IMPRESSION: No acute cardiopulmonary disease.
[2024-08-05 12:42] LABS: Bilirubin Urine 1+ (Negative); Blood Urine Negative (Negative); Glucose Urine UA Negative (Normal); Ketones Urine Trace (Negative); Leukocyte Esterase Urine Negative (Negative); Nitrate Urine Negative (Negative); Protein Urine 2+ (Negative); Urine Appearance Cloudy (CLEAR); pH Urine 5.5 (5-7)
[2024-08-05] MEDS: ondansetron 2 mg/ML SDV 2 mL 4 MG IVP (12:52)
[2024-08-05] MEDS: sodium chloride 0.9% 1,000 ML 999 ML IV (12:52)
[2024-08-05 13:03] VITALS: O2SAT 90
[2024-08-05 13:23] LABS: Specific Gravity, Urine 1.033 (1.005-1.030); UA Manual Slide Review YES; UA Slide Review UA Slide Review Perf; Urine Color Dark Yellow (Yellow)
[2024-08-05 13:24] LABS: Add Urine Culture? No; Add Urine Microscopic? YES; Bacteria Urine 1+ /hpf; WBC Urine 0-4 /hpf (0-5)
[2024-08-05 13:39] LABS: D Dimer 0.76 ug/mLFEU (0-0.59)
[2024-08-05 13:41] VITALS: BP 147/99; RESP 18; O2SAT 97
--- NOTE | 2024-08-05 13:43 | CT_ITS ---
WS: [id number] CTA CHEST FOLLOWED BY ABDOMEN AND PELVIS TECHNIQUE: contrast enhanced CTA of the chest, abdomen, and pelvis with coronal and sagittal reformatted images and additional MIP Images. CLINICAL INFORMATION: sob, post-influenza, elevated ddimer, low 02/elevated HR COMPARISON: CT abdomen pelvis 09/12/2022 DLP: 1398.[address] scans at [facility] use at least one of these dose optimization techniques: automated exposure control; mA and/or kV adjustment per patient size (includes targeted exams where dose is matched to clinical indication); or iterative reconstruction. FINDINGS: Proximal main pulmonary arteries are normal. Normal visualized segmental and subsegmental pulmonary arteries. No evidence of pulmonary embolus. Normal caliber thoracic aorta. Enlarged thyroid. Shallow inspiration. Bibasilar atelectasis. A few patchy opacities in the RIGHT lower lobe. No focal consolidation or pleural fluid. Subsegmental atelectasis in the RIGHT middle lobe. Small esophageal hiatal hernia. Hepatomegaly. Diffuse fatty infiltration of the liver. Normal gallbladder. Small esophageal hiatal hernia. Fatty atrophy of the pancreas. Normal spleen. Bilateral renal cysts. No hydronephrosis. Cortical scarring in both kidneys. Normal caliber abdominal aorta. Aortic calcification. Lobulated fibroid uterus Diffuse wall thickening of the colon worse in the splenic flexure with surrounding induration suspicious for infectious or inflammatory colitis. Mild fecal retention in the RIGHT colon and cecum. Transition to normal caliber colon in the descending LEFT colon may be due to spasm or stricture. Recommend follow- up to resolution and further evaluation with colonoscopy. Chronic spondylolysis L5-S1 with anterolisthesis measuring 2.0 cm similar to the prior studies. CT/CT angio chest w abd pel w con IMPRESSION: 1. No evidence of pulmonary embolus. 2. Shallow inspiration with bibasilar atelectasis. 3. Acute colitis involving the distal transverse and hepatic flexure colon wit h wall thickening and surrounding induration. 4. Focal transition to normal caliber descending colon in the mid LEFT descend ing colon may be due to spasm or stricture. Recommend follow-up with colonoscop y after colitis resolution. 5. Fibroid uterus. 6. Enlarged thyroid 7. Small esophageal hiatal hernia with air-fluid level.
[2024-08-05] MEDS: iohexol 350 mg/mL 500 mL Btl (per mL) IV (14:31)
[2024-08-05 15:07] VITALS: BP 122/82; O2SAT 90
--- NOTE | 2024-08-06 07:44 | DCPLANNER ---
Message sent to General surgery for follow up
== END 2024-08-05 16:24 | disposition home or self-care (01) ==
PROVIDERS: Emergency Provider Physician Assistant; PCP Nurse Practitioner Family
DX: K52.9 Noninfective gastroenteritis and colitis, unspecified (principal); Z11.52 Encounter for screening for COVID-19; Z72.0 Tobacco use; I10 Essential (primary) hypertension
CPT/HCPCS: 36415; 71045; 71275; 74177; 80053; 81001; 83690; 85025; 85378; 87637; 96374; 99285; J2405; J7030

== ENCOUNTER → 2024-09-05 13:59 | Outpatient (BNVA) | payer MEDICAID, SELFPAY | PROVIDERS: PCP Nurse Practitioner Family; Visit Provider Podiatrist Foot & Ankle Surgery | DX: Z98.890 Other specified postprocedural states (principal); Z87.81 Personal history of (healed) traumatic fracture | CPT/HCPCS: 73610 ==

== ENCOUNTER 2024-10-03 06:43 | Day surgery (SDC) | payer MEDICAID, SELFPAY ==
[2024-10-03 06:56] VITALS: BP 135/76; PULSE 95; RESP 16; TEMP 36.1; O2SAT 96
[2024-10-03 06:57] VITALS: BMI 36.3
--- NOTE | 2024-10-03 07:00 | W.PM.OPSFHP ---
Same Day Surgery H&P Indication for Procedure/HPI DATE OF PROCEDURE: October 03, 2024 CHIEF COMPLAINT/INDICATIONFOR SURGICAL PROCEDURE: history of colitis PREOP DIAGNOSIS: history of colitis PLANNED PROCEDURE: Operation Date: 10/03/24 07:40 Proposed Procedures p Colonoscopy 39733 G0105 K52.9(Not Applicable) - Tano Goldstein MD Medications/Allergies* Home Medications ?Medication ?Instructions ?Recorded ?Confirmed ?Type loratadine 10 mg tablet (Claritin) 10 mg PO DAILY 11/05/19 09/30/24 History duloxetine 30 mg capsule,delayed 30 mg PO DAILY 09/10/22 09/30/24 History release fluoxetine 20 mg capsule 20 mg PO DAILY 09/10/22 09/30/24 History gabapentin 100 mg capsule 100 mg PO TID 09/10/22 09/30/24 History Allergies/Adverse Reactions Allergy/AdvReac Type Severity Reaction Status Date / Time latex Allergy Mild Itchy and Verified 09/30/24 10:50 break out Pertinent History/Comorbid Conditions* Medical History (Updated 08/13/24 @ 00:00 by THA Espinoza) Amphetamine abuse Lactic acid acidosis Hypothalamic hypothyroidism Hypertension Arthritis History of cataract Anxiety Lumbar disc disease with radiculopathy Chronic cholecystitis Surgical History (Updated 09/10/22 @ 17:33 by Kael Mckoy MD) History of tubal ligation Social History Smoking and tobacco/nicotine status: current every day tobacco/nicotine user Second hand smoke exposure: Yes Alcohol intake: never Substance/Drug Use: never Pertinent Exam Findings alert, oriented x 3, clear to auscultation bilaterally and regular rate & rhythm Recommendations Surgery/Procedure today Coding Level of Care Code Acute Code for g Leyla
--- NOTE | 2024-10-03 07:11 | ANES.PREANE2 ---
Pre-Anesthetic Assessment Height/Weight: Height 1.6 m Weight 92.986 kg Temp Pulse Resp BP Pulse Ox O2 Del Method 96.9 F L 95 16 135/76 96 Room Air 10/03/24 06:56 10/03/24 06:56 10/03/24 06:56 10/03/24 06:56 10/03/24 06:56 10/03/24 06:56 Preop Diagnosis: history of colitis Operation Date: 10/03/24 07:40 Proposed Procedures p Colonoscopy 50664 G0105 K52.9(Not Applicable) - Tano Goldstein MD Familial anesthetic complications: none Was Beta Hugo taken within 24 hours: N/A Was Clonidine taken within 24 hours: N/A Last intake: Intake Last Liquid Date 10/02/24 Last Liquid Time 21:00 Last Solid Date 10/01/24 Last Solid Time 18:00 Social No alcohol and No tobacco Exam alert, oriented x 3 and clear to auscultation bilaterally Airway Mallampati: Class II Dentition: false History/ROS No significant history except as noted Pulmonary None reported CV/HEM Hypertension None reported Hepatic None reported GI abdominal pain, diarrhea Metabolic None reported Musc/skel Lower Back Pain Neuropsych None reported Anesthetic Plan ASA status: 2 Anesthesia: Anesthesia Evaluation and MAC Risk of > 500 ml blood loss (7ml/kg in children): No Medications/Allergies Home Medications ?Medication ?Instructions ?Recorded ?Confirmed ?Last Taken ?Type loratadine 10 mg tablet (Claritin) 10 mg PO DAILY 11/05/19 09/30/24 10/02/24 History duloxetine 30 mg capsule,delayed 30 mg PO DAILY 09/10/22 09/30/24 10/02/24 History release fluoxetine 20 mg capsule 20 mg PO DAILY 09/10/22 09/30/24 10/02/24 History gabapentin 100 mg capsule 100 mg PO TID 09/10/22 09/30/24 10/02/24 History amlodipine 10 mg tablet 10 mg PO DAILY #30 tabs 09/14/22 09/30/24 10/02/24 Rx [id number] Bone Growth Stimulator #1 ea 02/03/23 09/05/24 10/02/24 Rx toxicology clearance #1 ea 05/01/23 09/05/24 10/02/24 Rx ASO to right #1 ea 07/25/24 09/05/2410/02/25 Rx Allergies Allergy/AdvReac Type Severity Reaction Status Date / Time latex Allergy Mild Itchy and Verified 09/30/24 10:50 break out [facility] Anesthesia Medical History Amphetamine abuse Lactic acid acidosis Hypothalamic hypothyroidism Hypertension Arthritis History of cataract Anxiety Lumbar disc disease with radiculopathy Chronic cholecystitis Surgical History History of tubal ligation Social History Smoking and tobacco/nicotine status: current every day tobacco/nicotine user Second hand smoke exposure: Yes Alcohol intake: never Substance/Drug Use: never Data Anesthesia Cardiac Studies: Echocardiogram 09/11/22
[2024-10-03 07:53] VITALS: BP 107/79; PULSE 80; RESP 16; TEMP 36.1; O2SAT 96
[2024-10-03 08:16] VITALS: BP 111/84; PULSE 81; RESP 18; O2SAT 98
[2024-10-03] MEDS: sodium chloride 0.9% 1,000 ML 15 ML IV (08:27)
--- NOTE | 2024-10-03 08:35 | ANE.PACU2 ---
Inpatient post-anesthesia follow up: Airway intact: Yes Vital signs: Temperature 97 F Pulse Rate 81 Respiratory Rate 18 Blood Pressure 111/84 Pulse Oximetry 98 Oxygen Delivery Me thod Room Air Oxygen Flow Rate Fraction of Inspir ed Oxygen Hydration adequate: Yes Nausea and vomiting: No Pain level: 1 Mental status: Baseline
== END 2024-10-03 08:35 | disposition home or self-care (01) ==
PROVIDERS: PCP Nurse Practitioner Family; Visit Provider Surgery
PROC: 0DJD8ZZ Inspection of Lower Intestinal Tract, Via Natural or Artificial Opening Endoscopic (ICD-10-PCS; CPT 45330; principal; 2024-10-03 07:40)
DX: K56.699 Other intestinal obstruction unspecified as to partial versus complete obstruction (principal); E03.8 Other specified hypothyroidism; F17.200 Nicotine dependence, unspecified, uncomplicated; I10 Essential (primary) hypertension; K52.9 Noninfective gastroenteritis and colitis, unspecified; Z79.899 Other long term (current) drug therapy; Z91.040 Latex allergy status
CPT/HCPCS: 45380; 88305; J2704; J3490; J7030; J9999

== ENCOUNTER 2024-11-27 13:25 | Outpatient (CLI) | payer MEDICAID, SELFPAY ==
--- NOTE | 2024-11-27 13:29 | MM_ITS ---
WS: [id number] BILATERAL 3D TOMOSYNTHESIS DIGITAL SCREENING MAMMOGRAPHY WITH CAD CLINICAL INFORMATION: SCREENING HISTORY: Screening mammogram. No current complaints. COMPARISON: 2022 TECHNIQUE: Bilateral CC and MLO views. FINDINGS: Scattered fibroglandular densities bilaterally. No suspicious focal mass, asymmetry, calcifications, or architectural distortion. No evidence of malignancy. Nodularity anterior RIGHT breast is unchanged. MM/MM scr BI tomosynthesis [id number] IMPRESSION: DENSITY: There are scattered areas of fibroglandular density. BI-RADS: 2 - Benign. FOLLOW UP: 1 Year Follow-up Recommend return to annual screening mammography.
== END 2024-11-27 13:26 | disposition home or self-care (01) ==
PROVIDERS: PCP Nurse Practitioner Family; Visit Provider Nurse Practitioner Family
DX: Z12.31 Encounter for screening mammogram for malignant neoplasm of breast (principal)
CPT/HCPCS: 77063; 77067

== ENCOUNTER → 2025-02-11 12:52 | Outpatient (BNVA) | payer MEDICAID, SELFPAY | PROVIDERS: PCP Nurse Practitioner Family; Visit Provider Orthopaedic Surgery | DX: M43.17 Spondylolisthesis, lumbosacral region (principal); M48.061 Spinal stenosis, lumbar region without neurogenic claudication | CPT/HCPCS: 72110 ==